=== PATIENT | female | born 1955 | race Caucasian/White ===

== ENCOUNTER → 2017-03-19 | Outpatient (CLI) | payer MEDICARE, MEDICAID ==
[~2017-03-19] MED LIST: /ESOM40CA PO; /TIOT18INH INH; A; ADVAIR INH; ALBU83IN INH; ALBUTEROL NEB; AMLO5TAB2 PO; ANTI INFLAMATORY TOP; ASPI81TA45 OR; ASTEPRO NASAL SPRAY; BENI20TA11 PO; CALCTAB22 OR; CELE1CAP4 PO; CLAR5CHW OR; COLA100C2 PO; COZA100T OR; CYCL10TA PO; DEXI60CA2 PO; DEXILANT OR; ESTRACE CREAM PV; FIBEPOW OR; FLON0.05; FLOV50AE; GLUC500T PO; HYDR25TA6 OR; IBUP600T OR; INCR1INH IN; LIDO5DIS41 TD; LIPI10TA PO; LISI-538 PO; LOSA100T8 PO; LOSA50TA5 PO; LYRI150C PO; METO25TA4 PO; NASONEX; NEUR400C PO; NIAS500T2 OR; PRAM0.123 PO; PREG50CA OR; RESTASIS OU; ROBA750T4 PO; SERT-138 PO; SIMV40TA2 OR; SOMA350T PO; TESS100C OR; TESS100C PO; TRAM50TA2 OR; TRAM50TA2 PO; VARE05TA PO; VENTAER INH; VICO5TAB PO; VOLT1GEL2 TD; ZANT300T PO; ZOCO40TA PO; [UNRECOGNIZED DRUG - CODE] OR; [UNRECOGNIZED DRUG - OTHER] NEB; butrans patch TOP; flexeril PO
== END ==
LOC: M WUC 08:53
PROVIDERS: ATTEND Nurse Practitioner Family
DX: Z53.8 Procedure and treatment not carried out for other reasons (principal)

== ENCOUNTER → 2017-03-19 | Outpatient (CLI) | payer MEDICARE, MEDICAID ==
[2017-03-19 10:18] LABS: BASO % 0.6 % (0.0-1.0); EOS # 0.1 K/mm3 (0.0-0.50); EOS % 1.4 % (0.0-3.0); LARGE UNSTAINED CELL # 0.1 K/mm3 (0.0-0.4); LARGE UNSTAINED CELL % 1.7 % (0.0-4.0); LYMPH # 2.9 K/mm3 (1.5-4.5); LYMPH % 35.7 % (24.0-44.0); MEAN CORPUSCULAR HEMOGLOBIN 26.9 pg (27.0-33.0); MEAN CORPUSCULAR HGB CONC 32.8 g/dl (32.0-36.5); MEAN CORPUSCULAR VOLUME 81.9 fl (80.0-96.0); MONO # 0.3 K/mm3 (0.0-0.8); NEUTROPHILS # 4.6 K/mm3 (1.8-7.7); NEUTROPHILS % 56.5 % (36.0-66.0); PLATELET COUNT, AUTOMATED 280 k/mm3 (150-450); RED CELL DISTRIBUTION WIDTH 15.1 % (11.5-14.5); WHITE BLOOD COUNT 8.1 K/mm3 (4.0-10.0)
[2017-03-19 11:12] LABS: ALBUMIN 4.1 GM/DL (3.2-5.2); ALBUMIN/GLOBULIN RATIO 1.24 (1.00-1.93); ALKALINE PHOSPHATASE 100 U/L (45-117); ALT/SGPT 20 U/L (12-78); ANION GAP 7 MEQ/L (8-16); AST/SGOT 14 U/L (15-37); BILIRUBIN,TOTAL 0.3 MG/DL (0.2-1.0); BLOOD UREA NITROGEN 19 MG/DL (7-18); CALCIUM LEVEL 9.6 MG/DL (8.8-10.2); CARBON DIOXIDE LEVEL 31 MEQ/L (21-32); CHLORIDE LEVEL 103 MEQ/L (98-107); CHOLESTEROL LEVEL 210 MG/DL (<200); CREATININE FOR GFR 0.73 MG/DL (0.55-1.02); GLOMERULAR FILTRATION RATE > 60.0 (>45); GLUCOSE, FASTING 105 MG/DL (80-110); POTASSIUM SERUM 4.3 MEQ/L (3.5-5.1); SODIUM LEVEL 141 MEQ/L (136-145); TOTAL PROTEIN 7.4 GM/DL (6.4-8.2); TRIGLYCERIDES LEVEL 251 MG/DL (<150)
== END ==
LOC: M LAB 09:29
PROVIDERS: ATTEND Nurse Practitioner Family
DX: K21.9 Gastro-esophageal reflux disease without esophagitis (principal); E11.9 Type 2 diabetes mellitus without complications; I10 Essential (primary) hypertension; E78.4 Other hyperlipidemia

== ENCOUNTER 2017-03-23 12:02 | Emergency (ER) | payer MEDICARE, OTHER, MEDICAID ==
[~2017-03-23] VITALS: Ht 165.1 cm; Wt 71.4 kg
[~2017-03-23 12:02] MED LIST changes: -AMLO5TAB2 PO; -CYCL10TA PO; -DEXI60CA2 PO; -INCR1INH IN; -LIDO5DIS41 TD; -LIPI10TA PO; -LISI-538 PO; -LOSA100T8 PO; -LOSA50TA5 PO; -METO25TA4 PO; -PRAM0.123 PO
[2017-03-23] MEDS ORDERED: LOSA100T8 PO (12:21)
[2017-03-23] MEDS ORDERED: LIPI10TA PO (12:21)
[2017-03-23] MEDS ORDERED: AMLO5TAB2 PO (12:21)
[2017-03-23] MEDS ORDERED: ROBA750T4 PO (12:21)
[2017-03-23] MEDS ORDERED: ASPIRIN 81 MG CHEW TABLET PO ONE (14:00)
[2017-03-23] MEDS ORDERED: NITROGLYCERIN 0.4 MG SUBL TABLET SL PRN (14:00)
[2017-03-23 14:15] LABS: BASO % 0.4 % (0.0-1.0); EOS # 0.1 K/mm3 (0.0-0.50); EOS % 1.6 % (0.0-3.0); LARGE UNSTAINED CELL # 0.1 K/mm3 (0.0-0.4); LARGE UNSTAINED CELL % 1.6 % (0.0-4.0); LYMPH # 3.1 K/mm3 (1.5-4.5); MEAN CORPUSCULAR HEMOGLOBIN 26.6 pg (27.0-33.0); MEAN CORPUSCULAR HGB CONC 33.2 g/dl (32.0-36.5); MEAN CORPUSCULAR VOLUME 79.9 fl (80.0-96.0); MONO # 0.5 K/mm3 (0.0-0.8); MONO % 5.5 % (0.0-5.0); NEUTROPHILS # 4.8 K/mm3 (1.8-7.7); PLATELET COUNT, AUTOMATED 280 k/mm3 (150-450); RED CELL DISTRIBUTION WIDTH 15.4 % (11.5-14.5); WHITE BLOOD COUNT 8.5 K/mm3 (4.0-10.0)
[2017-03-23 14:18] LABS: ALBUMIN/GLOBULIN RATIO 1.21 (1.00-1.93); ALKALINE PHOSPHATASE 110 U/L (45-117); ANION GAP 9 MEQ/L (8-16); AST/SGOT 25 U/L (15-37); BILIRUBIN,DIRECT < 0.1 MG/DL (0.0-0.2); BILIRUBIN,TOTAL 0.2 MG/DL (0.2-1.0); BLOOD UREA NITROGEN 13 MG/DL (7-18); CALCIUM LEVEL 9.4 MG/DL (8.8-10.2); CARBON DIOXIDE LEVEL 24 MEQ/L (21-32); CHLORIDE LEVEL 102 MEQ/L (98-107); CREATININE FOR GFR 0.76 MG/DL (0.55-1.02); GLOMERULAR FILTRATION RATE > 60.0 (>45); GLUCOSE, FASTING 115 MG/DL (80-110); INR 0.83; POTASSIUM SERUM 4.3 MEQ/L (3.5-5.1); SODIUM LEVEL 135 MEQ/L (136-145); TOTAL PROTEIN 7.3 GM/DL (6.4-8.2)
[2017-03-23 14:22] VITALS: BP 125/68
[2017-03-23 14:22] LABS: ALT/SGPT 25 U/L (12-78)
--- NOTE | 2017-03-23 14:34 | REP ---
Chest two views HISTORY: Chest pain Comparison: 02/11/2014 A 7 mm parenchymal nodule is present in the left upper lobe. The right lung is clear. The heart is normal in size. The pulmonary vasculature is normal in appearance. The bony structure is intact. IMPRESSION: There is a 7 mm parenchymal nodule the left upper lobe. CT of the chest may be helpful for further evaluation. Signed by Domingo Remy MD 03/23/2017 02:26 P
[2017-03-23] MEDS ORDERED: ISOVUE-370 76% 100ML VIAL (Q9967) As Ordered ONE (15:21)
--- NOTE | 2017-03-23 16:17 | REP ---
CT ANGIOGRAM CHEST: 03/23/2017. Comparison: Chest x-ray 03/23/2017, 02/11/2014. Clinical history: Chest pain, dyspnea. Technique: The patient received a bolus of 75 ml of Isovue 370 with scanning through the chest with pulmonary angiogram protocol. Coronal and sagittal reconstructions were provided. Lung griffiths show some dependent atelectatic changes mid and lower lung zones with a few peripheral blebs. There is a sternotomy with sternal wires and the sternum is not healed. The lung griffiths show no infiltrate, nodule or mass. There is no effusion or pneumothorax and no pneumomediastinum. The aorta is without aneurysm or dissection. The main, right and left pulmonary arteries in the mediastinum are without filling defects. The lobar, segmental and subsegmental vessels visualized were also grossly intact and without filling defect or vessel cutoff. There is no pathologic sized mediastinal or hilar adenopathy. No axillary or supraclavicular mass. Bone windows show degenerative changes of the thoracic spine. Some old wedging mid thoracic vertebral level, but no acute compression deformity or destructive lesion. The medial clavicles, humeral heads, glenohumeral joints, scapulae and ribs are without focal abnormality. There are plate and screw fusion components of cervical discectomy in the lower cervical spine. The upper abdomen shows the liver and spleen without mass or focal lesion. There is no hepatosplenomegaly. Adrenal glands are normal. The poles of kidneys intact. Pancreas is unremarkable and the gallbladder absent from prior cholecystectomy with clips in the fossa. Visualized small bowel loops and colon in the abdomen unremarkable. No hiatal hernia. Impression: 1. Dependent atelectatic changes throughout the posterior lower lung zones and without infiltrate, effusion, pulmonary nodule, atelectasis or parenchymal mass. No pneumothorax or pneumomediastinum. 2. There is no CT evidence of pulmonary thromboembolism. 3. Aorta without aneurysm or dissection. 4. Prior median sternotomy without healing of the sternum. 5. No other significant or acute finding. Signed by Selvin Olivier MD 03/23/2017 10:24 P
[2017-03-23] MEDS ORDERED: CYCL10TA PO (19:30)
[2017-03-23 19:43] VITALS: BP 144/68
--- NOTE | 2017-03-24 09:46 | ECGEPIP ---
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
--- NOTE | 2017-03-24 10:00 | ECGEPIP ---
Stationary ECG Study [facility] - ED Test Date: 2017-03-23 Pat Name: MALGORZATA JOSHI Department: Room: - Gender: F Warehouser: tanja : 1955 Requested By: REYNA Cruz Order Number: [id number] Reading MD: Daniele Briones Measurements Intervals [place] Rate: 68 P: -6 WI: 162 QRS: 74 QRSD: 133 T: 10 QT: 421 QTc: 450 Interpretive Statements SINUS RHYTHM RIGHT BUNDLE BRANCH BLOCK SIMILAR TO PRIOR ON SAME DATE Electronically Signed On 03-24-2017 10:00:39 EDT by Daniele Briones
--- NOTE | 2017-03-26 12:57 | ED PDOC ---
Post-Departure Follow-Up dr jackson faxed formal report of cxr Adolph Moraes MD Mar 26, 2017 12:57
[2017-05-22] MEDS ORDERED: METO25TA4 PO (10:32)
[2017-05-22] MEDS ORDERED: INCR1INH IN (10:32)
[2017-05-22] MEDS ORDERED: LOSA50TA5 PO (10:32)
[2017-05-22] MEDS ORDERED: PRAM0.123 PO (10:32)
[2017-05-22] MEDS ORDERED: DEXI60CA2 PO (10:32)
[2017-05-22] MEDS ORDERED: LISI-538 PO (10:32)
== END 2017-03-23 19:49 | disposition home or self-care (01) ==
LOC: M ED 12:02
DX: R91.1 Solitary pulmonary nodule (principal); R07.9 Chest pain, unspecified; I25.10 Atherosclerotic heart disease of native coronary artery without angina pectoris; J44.9 Chronic obstructive pulmonary disease, unspecified; Z90.79 Acquired absence of other genital organ(s); Z90.49 Acquired absence of other specified parts of digestive tract; Z87.891 Personal history of nicotine dependence; Z82.49 Family history of ischemic heart disease and other diseases of the circulatory system
CPT/HCPCS: 36415; 71020; 71275; 80048; 80076; 82550; 82553; 83690; 83880; 84484; 85025; 85610; 85730; 93005; 93041; 94760; 99285; Q9967

== ENCOUNTER → 2017-03-23 | Outpatient (CLI) | payer OTHER, MEDICAID, MEDICARE ==
--- NOTE | 2017-04-26 01:11 | ECWPNPC ---
PATIENT NAME: MALGORZATA JOSHI : 1955 GENDER: FEMALE VISIT DATE: 03/23/2017 DISCHARGE DATE: 03/23/17 1145 VISIT LOCKED DATE TIME: PHYSICIAN: ALISIA YANG RESOURCE: ALISIA YANG REASON FOR APPOINTMENT 1. WC, NECK HISTORY OF PRESENT ILLNESS HISTORY OF PRESENT ILLNESS: HERE FOR F/U WORK RELATED INJURY 1985.HX OF CERVICAL SURGERY X2.SAW SURGEON A FEW YEARS AGO WHO DID OFFER ANOTHER SURGERY.WORSE AREA OF PAIN RIGHT NECK W RADIATION INTO RIGHT ARM.RATING PAIN VAS 8/10.PT IS RIGHT HAND DOMINANT.PAIN AGGREVATED W USE OF RIGHT ARM.LAST VISIT WAS WITH US IN .SHE HAS BEEN IN [place] AND HAS HAD MULTIPLE MEDICAL ISSUES.SHE HAD EMERGENT HEART SURGERY WITH COMPLICATIONS.SHE HAS BEEN WITHOUT PAIN MEDICATION FOR SEVERAL MONTHS.SHE IS JUST GETTING REESTABLISHED IN AREA.SHE DOESNT FEEL WELL TODAY AND IS CRYING PERIODICALLY THROUGH VISIT.HAVING SEVERE ACTIVITY INTOLERANCE AND APPEARS TO BE QUITE DEBILITATED TODAY.RATING PAIN VAS 9/10. PAIN THE PATIENT DESCRIBES THE PAIN... THE PATIENT DESCRIBES THE PAIN... THE PATIENT DESCRIBES THE PAIN... FALL RISK SCREENING: SCREENING :NO FALLS IN THE PAST YEAR CURRENT MEDICATIONS TAKING ALBUTEROL SULFATE (2.5 MG/3ML) 0.083% NEBULIZATION SOLUTION VIA NEB INHALATION EVERY 4-6 HOURS NEEDED TAKING ESTRACE 0.1 MG/GM CREAM 0.5 GM VAGINAL TWICE WEEK TAKING CALCIUM 600 + D 600-400 MG-UNIT TABLET 1 TABLET ORALLY TWICE DAILY TAKING FLONASE 50 MCG/ACT SUSPENSION 1 PUFF IN EACH NOSTRIL NASALLY ONCE A DAY TAKING CLARITIN 10 MG TABLET 1 TABLET ORALLY ONCE A DAY TAKING VENTOLIN HFA 108 (90 BASE) MCG/ACT AEROSOL SOLUTION 2 PUFFS INHALATION EVERY 4 HOUR NEEDED TAKING METFORMIN HCL 500 MG TABLET 1 TABLET WITH MEALS ORALLY BID TAKING ASPIR-81 81 MG TABLET DELAYED RELEASE 1 TABLET ORALLY ONCE A DAY TAKING DEXILANT 60MG DR ESPARZA DAILY TAKING NEBULIZER - DX: 496 1 USE NEEDED TAKING NEBULIZER/TUBING/MOUTHPIECE - DX: 496 1 USE NEEDED TAKING LOSARTAN POTASSIUM-HCTZ 100-12.5 MG TABLET 1 TABLET ORALLY ONCE A DAY TAKING AMLODIPINE 5MG TABLET 1 TAB(S) ORAL DAILY TAKING FIBERCON 625 MG TABLET 1 -2 TABS NEEDED FOR CONSTIPATION ORALLY DAILY TAKING INCRUSE ELLIPTA 62.5 MCG/INH AEROSOL POWDER BREATH ACTIVATED 1 PUFF INHALATION ONCE A DAY TAKING SERTRALINE HCL 100 MG TABLET 1 TABLET ORALLY ONCE A DAY TAKING CELEBREX 200 MG CAPSULE 1 CAPSULE ORALLY ONCE A DAY TAKING ADVAIR HFA 115-21 MCG/ACT AEROSOL 2 PUFFS INHALATION TWICE A DAY TAKING LYRICA 150 MG CAPSULE 1 CAPSULE ORALLY TID MDD3 TAKING ROBAXIN-750 750 MG TABLET 1 TABLET ORALLY 3X DAY Q8H PRN TAKING VOLTAREN 1 % GEL DIRECTED TRANSDERMAL TID TAKING LIPITOR 10 MG TABLET 1 TABLET ORALLY ONCE A DAY NOT-TAKING NIASPAN 500 MG TABLET EXTENDED RELEASE 2 TABS AT BEDTIME ORALLY ONCE A DAY NOT-TAKING SIMVASTATIN 40 MG TABLET 1 TABLET EVERY EVENING ORALLY ONCE A DAY NOT-TAKING VALIUM 10 MG TABLET 1 TABLET NEEDED ORALLY 1 TAB 1HR PRE PROC MDD1 NOT-TAKING OXYCODONE HCL 5 MG TABLET 2 TAB ORALLY 2TAB 1HR PRE PROC. MDD2 NOT-TAKING BENZONATATE 100 MG CAPSULE 1 CAPSULE ORALLY THREE TIMES A DAY NOT-TAKING CHANTIX CONTINUING MONTH MONIE 1 MG TABLET 1 TABLET ORALLY TWICE A DAY NOT-TAKING COLACE 100 MG CAPSULE 1 CAPSULE NEEDED ORALLY 2 X DAILY NEEDED NOT-TAKING ULTRAM 50 MG 50 MG TABLET [address] SHORT ORALLY EVERY 6 HOURS NEEDED FOR PAIN NOT-TAKING SPIRIVA HANDIHALER 18 MCG CAPSULE 1 CAPSULE BY MOUTH INHALATION ONCE A DAY NOT-TAKING RESTASIS 0.05 % EMULSION 1 INTO AFFECTED EYE [place] [facility] OPHTHAL[facility] TWICE A DAY NOT-TAKING NEURONTIN 400 MG CAPSULE 1 CAPSULE ORALLY THREE TIMES A DAY MEDICATION LIST REVIEWED AND RECONCILED WITH THE PATIENT PAST MEDICAL HISTORY ASTHMA ESOPHAGEAL REFLUX HYPERTENSION HYPERLIPIDEMIA DEPRESSION CONSTIPATION METABOLIC SYNDROME COPD--FEV1 2.9 (2008) VITAMIN D DEFICIENCY LOW BACK PAIN CELESTE--ON CPAP PREDM ALLERGIES LISINOPRIL: COUGH: SIDE EFFECTS SURGICAL HISTORY NO PERSONAL OR FHX OF SEVERE REACTION TO ANESTHESIA CARPAL TUNNEL RELEASE 93 HYSTERECTOMY, TOTAL WITH BSO APPENDECTOMY 94 BLADDER SUSPENSION, UNSPECIFIED EGD 6-,06-23, 07/29 CERVICAL FUSION/LAMINECTOMY 01-22 CHOLECYSTECTOMY 02-21 NECK FUSION 94 R ULNA FX REPAIR 07-24 NL COLONOSCOPY 07/29 TRIPLE CARDIAC BYPASS 07/2016 BLOOD CLOT BEHIND HEART REMOVED 10/2016 HOSPITALIZATION/MAJOR DIAGNOSTIC PROCEDURE SURGERY RELATED REVIEW OF SYSTEMS REVIEWED BY: PROVIDER: ALISIA VIZCARRA . CONSTITUTIONAL: ANY CHANGE IN YOUR MEDICAL CONDITION? YES, HEART SURGERY, BLOOD CLOT REMOVED . CHILLS NO . FEVER NO . INFECTION: DO YOU HAVE NEW INFECTIONS? NO . DO YOU HAVE HISTORY OF MRSA? NO . MUSCULOSKELETAL: ANY NEW PATTERNS OF PAIN OR NUMBNESS? NO . GASTROENTEROLOGY: ANY NEW CHANGE IN BOWEL CONTROL? NO . GENITOURINARY: ANY NEW CHANGE IN BLADDER CONTROL? NO . IS THERE A CHANCE YOU COULD BE ? NO . HEMATOLOGY/LYMPH: DO YOU TAKE ANY BLOOD THINNERS? (FOR EXAMPLE- COUMADIN, PLAVIX, AGGRENOX, PLATEL, PRADAXA, OR XARELTO) NO . WHEN WAS YOUR LAST DOSE? DATE: TIME: . NEUROLOGY: HAVE YOU FALLEN IN THE PAST 6 MONTHS? YES, PT STATES SHE GETS DIZZY WHEN GETTING UP TO STAND, PT REPORTS FALLING OFTEN . ANY NEW EXTREMITY NUMBNESS OR WEAKNESS? NO . CARDIOLOGY: DO YOU HAVE A PACEMAKER OR DEFIBRILLATOR? NO . RESPIRATORY: HAVE YOU BEEN SICK IN THE PAST WEEK? NO . FEVER NO . FLU LIKE SYMPTOMS? NO . COUGH NO . INTEGUMENTARY: DO YOU HAVE ANY RASHES OR OPEN SORES? NO . ALLERGIC/IMMUNO: ARE YOU ALLERGIC TO SHELLFISH OR IV DYE? NO . ANY NEW ALLERGIES? NO . PSYCHIATRIC: DO YOU HAVE THOUGHTS OF HURTING YOURSELF OR SOMEONE ELSE? NO . ARE YOU ABUSED, NEGLECTED, OR IN AN UNSAFE ENVIRONMENT? NO . ENDOCRINOLOGY: ARE YOU DIABETIC? YES . OTHER: DO YOU NEED ANY PRESCRIPTIONS? NO . IF YES, PLEASE LIST: ____ . ANY NEW PROBLEMS WITH YOUR MEDICATIONS? NO . WHEN DID YOU LAST EAT? ____ . WHEN DID YOU LAST DRINK? ____ . WHAT DID YOU LAST DRINK? ____ . NAME OF PERSON DRIVING YOU HOME? ____ . DO YOU HAVE ANY OTHER QUESTIONS OR CONCERNS NO . VITAL SIGNS WT 157 LBS, HT 65 IN, BMI 26.12 INDEX, BP 121/73 MM HG, HR 87 /MIN, RR 16 /MIN, TEMP 93.8 F, OXYGEN SAT % 96%, NA INITIALS SC 11:09, REVIEWED BY: EM. EXAMINATION GENERAL EXAMINATION: LUNGS:LUNG SOUNDS ARE CLEAR. HEART:HEART RATE REGULAR. MUSCULOSKELETAL:*. DIAGNOSTIC: . CERVICAL SPINE/NECK: SENSATIONS:NORMAL BILATERALLY. MOTOR STRENGTH:NORMAL. MYOFASCIAL TRIGGER POINTS:RIGHT UPPER BACK. POINT TENDERNESS OVER CERVICAL SPINE. 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 [facility] REASON:CERVICAL DISC PROTRUSION/CERVICAL RADICULOPATHY PROCEDURES PN WORKMANS' COMP OPINION IN YOUR OPINION, WAS THE INCIDENT THAT THE PATIENT DESCRIBED THE COMPETENT MEDICAL CAUSE OF THIS INJURY/ILLNESS? YES ARE THE PATIENT'S COMPLAINTS CONSISTENT WITH HIS/HER HISTORY OF THE INJURY/ILLNESS? YES IS THE PATIENT'S HISTORY OF THE INJURY/ILLNESS CONSISTENT WITH YOUR OBJECTIVE FINDING? YES WHAT IS THE PERCENTAGE OF TEMPORARY IMPAIRMENT? MODERATE TO MARKED = 66.7% IS THE PATIENT WORKING? NO DOCTOR ON SITE: LAWRENCE BRAMBILA MD PROCEDURE CODES FA211 ESTABILISHED PATIENT [facility] FACILITY CHARGE DISPOSITION & COMMUNICATION FOLLOW UP 4 WEEKS ELECTRONICALLY SIGNED BY ZACKREY GREWAL ON 04/25/2017 AT 04:47 PM EDT DISCLAIMER : THIS IS A VISIT SUMMARY EXTRACTED FROM THE [employer] CHART. IT IS NOT A COPY OF THE [employer] PROGRESS NOTE. ALISSA
== END ==
LOC: M PAIN 11:00
PROVIDERS: ATTEND Nurse Practitioner Family
DX: G89.29 Other chronic pain (principal); M54.2 Cervicalgia; M96.1 Postlaminectomy syndrome, not elsewhere classified; M54.81 Occipital neuralgia; J45.909 Unspecified asthma, uncomplicated; K21.9 Gastro-esophageal reflux disease without esophagitis; I10 Essential (primary) hypertension; E78.5 Hyperlipidemia, unspecified; F32.9 Major depressive disorder, single episode, unspecified; K59.00 Constipation, unspecified; J44.9 Chronic obstructive pulmonary disease, unspecified; E55.9 Vitamin D deficiency, unspecified; G47.33 Obstructive sleep apnea (adult) (pediatric); R73.03 Prediabetes; Z98.1 Arthrodesis status; Z88.8 Allergy status to other drugs, medicaments and biological substances; Z79.84 Long term (current) use of oral hypoglycemic drugs; Z79.899 Other long term (current) drug therapy; Z86.718 Personal history of other venous thrombosis and embolism

== ENCOUNTER → 2017-05-10 | Outpatient (CLI) | payer MEDICARE, OTHER, MEDICAID ==
[~2017-05-10] MED LIST changes: +AMLO5TAB2 PO; +CYCL10TA PO; +DEXI60CA2 PO; +INCR1INH IN; +LIDO5DIS41 TD; +LIPI10TA PO; +LISI-538 PO; +LOSA100T8 PO; +LOSA50TA5 PO; +METO25TA4 PO; +PRAM0.123 PO
[2017-05-10 15:12] LABS: ANION GAP 9 MEQ/L (8-16); BLOOD UREA NITROGEN 18 MG/DL (7-18); CALCIUM LEVEL 10.1 MG/DL (8.8-10.2); CARBON DIOXIDE LEVEL 29 MEQ/L (21-32); CHLORIDE LEVEL 101 MEQ/L (98-107); CREATININE FOR GFR 0.71 MG/DL (0.55-1.02); GLOMERULAR FILTRATION RATE > 60.0 (>45); GLUCOSE, FASTING 93 MG/DL (80-110); POTASSIUM SERUM 4.5 MEQ/L (3.5-5.1); SODIUM LEVEL 139 MEQ/L (136-145)
[2017-05-10 16:36] LABS: BASO % 0.4 % (0.0-1.0); EOS # 0.1 K/mm3 (0.0-0.50); LARGE UNSTAINED CELL # 0.1 K/mm3 (0.0-0.4); LARGE UNSTAINED CELL % 1.4 % (0.0-4.0); LYMPH # 3.5 K/mm3 (1.5-4.5); MEAN CORPUSCULAR HEMOGLOBIN 28.3 pg (27.0-33.0); MEAN CORPUSCULAR HGB CONC 34.1 g/dl (32.0-36.5); MEAN CORPUSCULAR VOLUME 83.1 fl (80.0-96.0); MONO # 0.4 K/mm3 (0.0-0.8); NEUTROPHILS # 5.6 K/mm3 (1.8-7.7); NEUTROPHILS % 57.3 % (36.0-66.0); PLATELET COUNT, AUTOMATED 356 k/mm3 (150-450); RED CELL DISTRIBUTION WIDTH 14.1 % (11.5-14.5); WHITE BLOOD COUNT 9.7 K/mm3 (4.0-10.0)
== END ==
LOC: M WUC 10:33
PROVIDERS: ATTEND Internal Medicine Cardiovascular Disease
DX: I25.10 Atherosclerotic heart disease of native coronary artery without angina pectoris (principal); R06.02 Shortness of breath; Z95.5 Presence of coronary angioplasty implant and graft

== ENCOUNTER → 2017-05-15 | Outpatient (CLI) | payer OTHER, MEDICAID, MEDICARE ==
--- NOTE | 2017-06-08 00:53 | ECWPNPC ---
PATIENT NAME: MALGORZATA JOSHI : 1955 GENDER: FEMALE VISIT DATE: 05/15/2017 DISCHARGE DATE: 05/15/17 1452 VISIT LOCKED DATE TIME: PHYSICIAN: ALISIA YANG RESOURCE: ALISIA YANG REASON FOR APPOINTMENT 1. BACK HISTORY OF PRESENT ILLNESS HISTORY OF PRESENT ILLNESS: HERE FOR F/U WORK RELATED INJURY 1985.HX OF CERVICAL SURGERY X2.SAW SURGEON A FEW YEARS AGO WHO DID OFFER ANOTHER SURGERY.WORSE AREA OF PAIN RIGHT NECK W RADIATION INTO RIGHT ARM.RATING PAIN VAS 9/10.PT IS RIGHT HAND DOMINANT.PAIN AGGREVATED W USE OF RIGHT ARM.LAST VISIT WAS WITH US IN .SHE HAS BEEN IN [place] AND HAS HAD MULTIPLE MEDICAL ISSUES.SHE HAD EMERGENT HEART SURGERY WITH COMPLICATIONS.SHE HAS BEEN WITHOUT PAIN MEDICATION FOR SEVERAL MONTHS.SHE IS JUST GETTING REESTABLISHED IN AREA.SHE IS HAVING HERNIA SURGERY ON .SHE IS HAVING A CARDIAC CATH. IN [place] ORDERD BY DR. BLACKMAN.SHE IS HAVING DIZZY SPELLS AND SHORTNESS OF BREATH.RATING PAIN VAS 9/10.LEAVING FOR [place] IN JUNE. PAIN THE PATIENT DESCRIBES THE PAIN... THE PATIENT DESCRIBES THE PAIN... THE PATIENT DESCRIBES THE PAIN... THE PATIENT DESCRIBES THE PAIN... FALL RISK SCREENING: SCREENING :NO FALLS IN THE PAST YEAR CURRENT MEDICATIONS TAKING ALBUTEROL SULFATE (2.5 MG/3ML) 0.083% NEBULIZATION SOLUTION VIA NEB INHALATION EVERY 4-6 HOURS NEEDED TAKING ESTRACE 0.1 MG/GM CREAM 0.5 GM VAGINAL TWICE WEEK TAKING CALCIUM 600 + D 600-400 MG-UNIT TABLET 1 TABLET ORALLY TWICE DAILY TAKING FLONASE 50 MCG/ACT SUSPENSION 1 PUFF IN EACH NOSTRIL NASALLY ONCE A DAY TAKING CLARITIN 10 MG TABLET 1 TABLET ORALLY ONCE A DAY TAKING VENTOLIN HFA 108 (90 BASE) MCG/ACT AEROSOL SOLUTION 2 PUFFS INHALATION EVERY 4 HOUR NEEDED TAKING METFORMIN HCL 500 MG TABLET 1 TABLET WITH MEALS ORALLY BID TAKING ASPIR-81 81 MG TABLET DELAYED RELEASE 1 TABLET ORALLY ONCE A DAY TAKING DEXILANT 60MG DR ESPARZA DAILY TAKING NEBULIZER - DX: 496 1 USE NEEDED TAKING NEBULIZER/TUBING/MOUTHPIECE - DX: 496 1 USE NEEDED TAKING LOSARTAN POTASSIUM-HCTZ 100-12.5 MG TABLET 1 TABLET ORALLY ONCE A DAY TAKING AMLODIPINE 5MG TABLET 1 TAB(S) ORAL DAILY TAKING FIBERCON 625 MG TABLET 1 -2 TABS NEEDED FOR CONSTIPATION ORALLY DAILY TAKING INCRUSE ELLIPTA 62.5 MCG/INH AEROSOL POWDER BREATH ACTIVATED 1 PUFF INHALATION ONCE A DAY TAKING SERTRALINE HCL 100 MG TABLET 1 TABLET ORALLY ONCE A DAY TAKING ADVAIR HFA 115-21 MCG/ACT AEROSOL 2 PUFFS INHALATION TWICE A DAY TAKING LIPITOR 10 MG TABLET 1 TABLET ORALLY ONCE A DAY NOT-TAKING CELEBREX 200 MG CAPSULE 1 CAPSULE ORALLY ONCE A DAY NOT-TAKING LYRICA 150 MG CAPSULE 1 CAPSULE ORALLY TID MDD3 NOT-TAKING ROBAXIN-750 750 MG TABLET 1 TABLET ORALLY 3X DAY Q8H PRN NOT-TAKING VOLTAREN 1 % GEL DIRECTED TRANSDERMAL TID NOT-TAKING NIASPAN 500 MG TABLET EXTENDED RELEASE 2 TABS AT BEDTIME ORALLY ONCE A DAY NOT-TAKING SIMVASTATIN 40 MG TABLET 1 TABLET EVERY EVENING ORALLY ONCE A DAY NOT-TAKING VALIUM 10 MG TABLET 1 TABLET NEEDED ORALLY 1 TAB 1HR PRE PROC MDD1 NOT-TAKING OXYCODONE HCL 5 MG TABLET 2 TAB ORALLY 2TAB 1HR PRE PROC. MDD2 NOT-TAKING BENZONATATE 100 MG CAPSULE 1 CAPSULE ORALLY THREE TIMES A DAY NOT-TAKING CHANTIX CONTINUING MONTH MONIE 1 MG TABLET 1 TABLET ORALLY TWICE A DAY NOT-TAKING COLACE 100 MG CAPSULE 1 CAPSULE NEEDED ORALLY 2 X DAILY NEEDED NOT-TAKING ULTRAM 50 MG 50 MG TABLET [address] SHORT ORALLY EVERY 6 HOURS NEEDED FOR PAIN NOT-TAKING SPIRIVA HANDIHALER 18 MCG CAPSULE 1 CAPSULE BY MOUTH INHALATION ONCE A DAY NOT-TAKING RESTASIS 0.05 % EMULSION 1 INTO AFFECTED EYE [place] [facility] OPHTHAL[facility] TWICE A DAY NOT-TAKING NEURONTIN 400 MG CAPSULE 1 CAPSULE ORALLY THREE TIMES A DAY MEDICATION LIST REVIEWED AND RECONCILED WITH THE PATIENT PAST MEDICAL HISTORY ASTHMA ESOPHAGEAL REFLUX HYPERTENSION HYPERLIPIDEMIA DEPRESSION CONSTIPATION METABOLIC SYNDROME COPD--FEV1 2.9 (2008) VITAMIN D DEFICIENCY LOW BACK PAIN CELESTE--ON CPAP PREDM ALLERGIES LISINOPRIL: COUGH: SIDE EFFECTS REVIEW OF SYSTEMS REVIEWED BY: PROVIDER: ALISIA VIZCARRA . CONSTITUTIONAL: ANY CHANGE IN YOUR MEDICAL CONDITION? GOING TO CARDIAC MD SUNDAY POSSIBLE CLOG IN [place] SURGERY JUN 05 . CHILLS NO . FEVER NO . INFECTION: DO YOU HAVE NEW INFECTIONS? NO . DO YOU HAVE HISTORY OF MRSA? NO . MUSCULOSKELETAL: ANY NEW PATTERNS OF PAIN OR NUMBNESS? NO . GASTROENTEROLOGY: ANY NEW CHANGE IN BOWEL CONTROL? NO . GENITOURINARY: ANY NEW CHANGE IN BLADDER CONTROL? NO . IS THERE A CHANCE YOU COULD BE ? NO . HEMATOLOGY/LYMPH: DO YOU TAKE ANY BLOOD THINNERS? (FOR EXAMPLE- COUMADIN, PLAVIX, AGGRENOX, PLATEL, PRADAXA, OR XARELTO) NO . WHEN WAS YOUR LAST DOSE? DATE: TIME: . NEUROLOGY: HAVE YOU FALLEN IN THE PAST 6 MONTHS? YES, 4 MONTHS AGO . ANY NEW EXTREMITY NUMBNESS OR WEAKNESS? NO . CARDIOLOGY: DO YOU HAVE A PACEMAKER OR DEFIBRILLATOR? NO . RESPIRATORY: HAVE YOU BEEN SICK IN THE PAST WEEK? NO . FEVER NO . FLU LIKE SYMPTOMS? NO . COUGH NO . INTEGUMENTARY: DO YOU HAVE ANY RASHES OR OPEN SORES? NO . ALLERGIC/IMMUNO: ARE YOU ALLERGIC TO SHELLFISH OR IV DYE? NO . ANY NEW ALLERGIES? NO . PSYCHIATRIC: DO YOU HAVE THOUGHTS OF HURTING YOURSELF OR SOMEONE ELSE? NO . ARE YOU ABUSED, NEGLECTED, OR IN AN UNSAFE ENVIRONMENT? NO . ENDOCRINOLOGY: ARE YOU DIABETIC? YES . OTHER: DO YOU NEED ANY PRESCRIPTIONS? NO . IF YES, PLEASE LIST: ____ . ANY NEW PROBLEMS WITH YOUR MEDICATIONS? NO . WHEN DID YOU LAST EAT? ____ . WHEN DID YOU LAST DRINK? ____ . WHAT DID YOU LAST DRINK? ____ . NAME OF PERSON DRIVING YOU HOME? ____ . DO YOU HAVE ANY OTHER QUESTIONS OR CONCERNS HAS NOT CONNECTED WITH ORTHO YET (FROM LAST NOTE) . VITAL SIGNS WT 144 LBS, HT 65 IN, BMI 23.96 INDEX, BP 114/69 MM HG, HR 78 /MIN, RR 16 /MIN, TEMP 96.5 F, OXYGEN SAT % 99%, NA INITIALS AW 1422. EXAMINATION GENERAL EXAMINATION: LUNGS:LUNG SOUNDS ARE CLEAR. HEART:HEART RATE REGULAR. MUSCULOSKELETAL:*. DIAGNOSTIC: . CERVICAL SPINE/NECK: SENSATIONS:NORMAL BILATERALLY. MOTOR STRENGTH:NORMAL. MYOFASCIAL TRIGGER POINTS:RIGHT UPPER BACK. POINT TENDERNESS OVER CERVICAL SPINE. 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 PROCEDURES PN WORKMANS' COMP OPINION IN YOUR OPINION, WAS THE INCIDENT THAT THE PATIENT DESCRIBED THE COMPETENT MEDICAL CAUSE OF THIS INJURY/ILLNESS? YES ARE THE PATIENT'S COMPLAINTS CONSISTENT WITH HIS/HER HISTORY OF THE INJURY/ILLNESS? YES IS THE PATIENT'S HISTORY OF THE INJURY/ILLNESS CONSISTENT WITH YOUR OBJECTIVE FINDING? YES WHAT IS THE PERCENTAGE OF TEMPORARY IMPAIRMENT? MODERATE TO MARKED = 66.7% IS THE PATIENT WORKING? NO DOCTOR ON SITE: LAWRENCE BRAMBILA MD PROCEDURE CODES FA211 ESTABILISHED PATIENT [facility] CHARGE DISPOSITION & COMMUNICATION FOLLOW UP PT WILL CALL ELECTRONICALLY SIGNED BY ZACKERY GREWAL ON 06/07/2017 AT 09:56 PM EDT DISCLAIMER : THIS IS A VISIT SUMMARY EXTRACTED FROM THE [employer] CHART. IT IS NOT A COPY OF THE [employer] PROGRESS NOTE. ALISSA
== END | disposition home or self-care (01) ==
LOC: M PAIN 14:15
PROVIDERS: ATTEND Nurse Practitioner Family
DX: G89.29 Other chronic pain (principal); M54.2 Cervicalgia; M96.1 Postlaminectomy syndrome, not elsewhere classified; M54.81 Occipital neuralgia; J44.9 Chronic obstructive pulmonary disease, unspecified; K21.9 Gastro-esophageal reflux disease without esophagitis; I10 Essential (primary) hypertension; E78.5 Hyperlipidemia, unspecified; F33.9 Major depressive disorder, recurrent, unspecified; K59.00 Constipation, unspecified; E88.81 Metabolic syndrome and other insulin resistance; E55.9 Vitamin D deficiency, unspecified; G47.33 Obstructive sleep apnea (adult) (pediatric); E11.9 Type 2 diabetes mellitus without complications; Z79.899 Other long term (current) drug therapy; Z79.84 Long term (current) use of oral hypoglycemic drugs; Z79.51 Long term (current) use of inhaled steroids; Z88.8 Allergy status to other drugs, medicaments and biological substances

== ENCOUNTER → 2017-05-29 | Outpatient (CLI) | payer MEDICARE, MEDICAID ==
[2017-05-29 12:49] LABS: MEAN CORPUSCULAR HEMOGLOBIN 28.1 pg (27.0-33.0); MEAN CORPUSCULAR HGB CONC 33.8 g/dl (32.0-36.5); MEAN CORPUSCULAR VOLUME 83.1 fl (80.0-96.0); RED CELL DISTRIBUTION WIDTH 14.4 % (11.5-14.5); WHITE BLOOD COUNT 8.1 10^3/uL (4.0-10.0)
[2017-05-29 13:06] LABS: ALBUMIN 4.1 GM/DL (3.2-5.2); ALBUMIN/GLOBULIN RATIO 1.32 (1.00-1.93); ALKALINE PHOSPHATASE 96 U/L (45-117); ALT/SGPT 26 U/L (12-78); ANION GAP 11 MEQ/L (8-16); AST/SGOT 20 U/L (15-37); BILIRUBIN,TOTAL 0.4 MG/DL (0.2-1.0); BLOOD UREA NITROGEN 16 MG/DL (7-18); CALCIUM LEVEL 10.1 MG/DL (8.8-10.2); CARBON DIOXIDE LEVEL 25 MEQ/L (21-32); CHLORIDE LEVEL 101 MEQ/L (98-107); CREATININE FOR GFR 0.71 MG/DL (0.55-1.02); GLOMERULAR FILTRATION RATE > 60.0 (>45); GLUCOSE, FASTING 141 MG/DL (80-110); POTASSIUM SERUM 4.3 MEQ/L (3.5-5.1); SODIUM LEVEL 137 MEQ/L (136-145); TOTAL PROTEIN 7.2 GM/DL (6.4-8.2)
== END ==
LOC: M WUC 09:28
PROVIDERS: ATTEND Nurse Practitioner Family
DX: E11.9 Type 2 diabetes mellitus without complications (principal)

== ENCOUNTER 2017-06-05 06:01 | Inpatient (IN) | payer MEDICARE ==
[2017-06-05] VITALS (8 sets, daily range): BP systolic 110–170; BP diastolic 56–76
[~2017-06-05] VITALS: Ht 165.1 cm; Wt 67.6 kg
[~2017-06-05 06:01] MED LIST changes: -LIDO5DIS41 TD
[2017-06-05] MEDS ORDERED: LR 1,000 ML IV ONE (06:15)
[2017-06-05] MEDS ORDERED: BUPIVACAINE HCL 0.25% 30 ML VIAL As Ordered ONE (07:19)
[2017-06-05] MEDS ORDERED: LIDOCAINE 2% INJ 100 MG/5 ML SDV (FOR ANES.) As Ordered ONE (07:58)
[2017-06-05] MEDS ORDERED: PROPOFOL 200 MG/20 ML VIAL As Ordered ONE (07:58)
[2017-06-05] MEDS ORDERED: ROCURONIUM BROMIDE 50 MG/5 ML VIAL/SYRINGE As Ordered ONE (07:58)
[2017-06-05] MEDS ORDERED: PROPOFOL 500 MG/50 ML VIAL As Ordered ONE ×2 (07:58→08:45)
[2017-06-05] MEDS ORDERED: REMIFENTANIL 1MG 3ML VIAL As Ordered ONE (07:58)
[2017-06-05] MEDS ORDERED: MIDAZOLAM INJ 2 MG/2 ML VIAL (J2250) As Ordered ONE (07:58)
[2017-06-05] MEDS ORDERED: fentaNYL 250 MCG/5 ML INJECTION (J3010) As Ordered ONE (07:58)
[2017-06-05] MEDS ORDERED: PHENYLEPHRINE INJ 10MG/ML VIAL (J2370) As Ordered ONE (07:58)
[2017-06-05] MEDS ORDERED: ASPIRIN 81 MG ENTERIC TAB PO SCH (09:00)
[2017-06-05] MEDS: FLUTICASONE PROP 0.05% NASAL SPRAY 16 GM (FLONASE) SCH (09:00)
[2017-06-05] MEDS: **NOTE PATIENT COMMENT** MISC XX SCH (09:00)
[2017-06-05] MEDS ORDERED: BUPIVACAINE LIPOSOME/PF 1.3% 20 ML VIAL (13.3MG/ML)(EXPAREL) As Ordered ONE (09:02)
[2017-06-05] MEDS ORDERED: NEOSTIGMINE 10 MG/10 ML VIAL (J2710) As Ordered ONE (09:06)
[2017-06-05] MEDS ORDERED: GLYCOPYRROLATE INJ 0.2 MG/ML 2 ML VIAL As Ordered ONE (09:06)
[2017-06-05] MEDS ORDERED: KETOROLAC 60 MG/2 ML VIAL (J1885) As Ordered ONE (09:06)
[2017-06-05] MEDS ORDERED: ONDANSETRON 4MG/2ML VIAL (J2405) As Ordered ONE (09:06)
[2017-06-05] MEDS ORDERED: NORCO, ANEXSIA 5/325MG TABLET (HYDROcodone/ACETAMINOPHEN) As Ordered ONE (10:07)
[2017-06-05] MEDS: NORCO, ANEXSIA 5/325MG TABLET (HYDROcodone/ACETAMINOPHEN) PO PRN ×2 (10:11→19:40)
[2017-06-05] MEDS ORDERED: ONDANSETRON 4MG/2ML VIAL (J2405) IV PRN (10:15)
[2017-06-05] MEDS ORDERED: fentaNYL 100 MCG/2 ML INJECTION (J3010) IV PRN (10:15)
[2017-06-05] MEDS ORDERED: NORCO, ANEXSIA 5/325MG TABLET (HYDROcodone/ACETAMINOPHEN) PO PRN (10:15)
[2017-06-05] MEDS ORDERED: LR 1,000 ML IV SCH (10:15)
[2017-06-05] MEDS ORDERED: NITROGLYCERIN 0.4 MG SUBL TABLET As Ordered ONE (11:16)
[2017-06-05] MEDS ORDERED: NITROGLYCERIN 0.4 MG SUBL TABLET SL ONE (11:45)
[2017-06-05] MEDS ORDERED: MORPHINE 2 MG/ML 1ML SYRINGE As Ordered ONE (13:09)
[2017-06-05] MEDS ORDERED: MORPHINE 2 MG/ML 1ML SYRINGE IV ONE (13:15)
[2017-06-05 13:20] LABS: MEAN CORPUSCULAR HEMOGLOBIN 27.9 pg (27.0-33.0); MEAN CORPUSCULAR HGB CONC 33.2 g/dl (32.0-36.5); MEAN CORPUSCULAR VOLUME 83.8 fl (80.0-96.0); WHITE BLOOD COUNT 9.8 10^3/uL (4.0-10.0)
--- NOTE | 2017-06-05 13:24 | CR.PDOC ---
[facility] Consultation Consultation DATE OF CONSULTATION: Jun 05, 2017 at 13:01 PRIMARY CARE PHYSICIAN: Dr. Chawla REFERRING PROVIDER: Dr. Jones ATTENDING PHYSICIAN: Dr. Jones REASON FOR CONSULTATION/CHIEF COMPLAINT: CP HISTORY OF PRESENT ILLNESS: This is a 61-year-old female past medical history of CAD status post CABG 3 in July 2016, COPD, hypertension, CELESTE on CPAP, diabetes, depression and presents for an incisional epigastric hernia repair. Post surgery, the patient had complained of 8 out of 10 pressure-like chest pain was midsternal, nonradiating. Nonpleuritic, non-positional, nonreproducible. Patient received nitroglycerin with significant relief of her pain. She states she takes aspirin daily with her last dose being yesterday. Patient currently denies any chest pain/shortness of breath/palpitations. Sitting comfortably in bed. Patient does note that she has exertional chest pain and shortness of breath at baseline. Had a recent cardiac catheterization 2 weeks ago which she notes did not have any new obstructive lesions. We will obtain records from [facility]. ALLERGIES: Please see below. HOME MEDICATIONS: Please see below. PAST MEDICAL HISTORY:As per HPI PAST SURGICAL HISTORY: Cholecystectomy, appendicectomy, bladder surgery, cervical fusion 2, right arm and left arm surgery, left elbow surgery, hysterectomy, CABG FAMILY HISTORY: Father with diabetes, mother with COPD and diabetes SOCIAL HISTORY: His history of tobacco abuse however quit in July, history of marijuana and cocaine use more than 8 years ago per medical records. REVIEW OF SYSTEMS: HEENT: Denies sore throat/headache CARDIOVASCULAR: + chest pain. No palpitations RESPIRATORY: Denies shortness of breath/cough GASTROINTESTINAL: denies nausea/vomiting GENITOURINARY: Denies dysuria/urinary urgency. MUSCULOSKELETAL: Denies myalgias/arthralgias NEUROLOGICAL: Denies any focal weakness PHYSICAL EXAMINATION: VITAL SIGNS: Please see below. General: No acute distress, laying comfortably in bed. HEENT: Moist mucous membranes. Neck: No JVD or lymphadenopathy Cardiac: RRR, No murmurs. Surgical scar from prior cath. Pulm: Coarse crackles at the bases right greater than left.No wheezing, rhonchi Abd: Minimal tenderness at the incisional regions. Bandages intact. No bleeding or areas of erythema noted. ND + BS Ext: No edema or cyanosis LABORATORY DATA: Please see below. ASSESSMENT/PLAN: 1. Atypical chest pain- the patient with history of CAD status post CABG in July 2016, with recent cath 2 weeks ago per patient's with no new obstructive lesions. Patient does states that she does have exertional chest pain and shortness of breath at baseline. Her cardiac enzymes are negative times one, will repeat. Her EKG with normal sinus rhythm and right bundle branch block unchanged from her prior EKG. Responded to nitroglycerin. Now chest pain free. Patient states she takes aspirin daily, last dose yesterday. Would observe patient on telemetry. Continue beta kayla, aspirin, statin. To be seen by Dr. Lundy. 2. Postoperative day 0 status post incisional epigastric hernia. Management per Dr. Jones. 3. Hypertension- Hold BP meds for now given post-op. Revaluate by tomorrow if needs ACEi restarted. 4. Hyperlipidemia- continue statin 5. Diabetes mellitus- hold metformin. Sliding scale insulin. 6. History of COPD- stable. Continue inhaler/. 7. Depression- Continue home meds 8. CELESTE on CPAP DVT prophylaxis- SCDs Patient will follow-up with Dr. Digna Velez starting 06/06/17 at 7 AM. Vital Signs/I&O Vital Signs Date Time Temp Pulse Resp B/P (MAP) Pulse Ox O2 Delivery O2 Flow Rate FiO2 06/05/17 11:50 61 16 122/71 (88) 96 Nasal Cannula 2 06/05/17 11:35 97.3 I&O- Last 24 Hours up to 6 AM 06/06/17 06:00 Intake Total 1300 ml Output Total 10 ml Balance 1290 ml Laboratory Data Labs 24H Laboratory Tests 2 06/05/17 07:18: Bedside Glucose (Misc Panel) 139H 06/05/17 11:33: Total Creatine Kinase 96, Creatine Kinase MB 1.9, Creatine Kinase MB Relative Index 1.97, Troponin I < 0.02 Allergies Coded Allergies: No Known Allergies (Verified , 06/05/17) Home Medications Scheduled (Incruse Ellipta) 62.5 Mcg/Inh Inh, 1 PUFF IN DAILY, (Reported) (Dexilant) 60 Mg Cap, 60 MG PO DAILY, (Reported) (Losartan Potassium/Hydroc 50-12.5 mg) 1 Tab Tab, 1 TAB PO DAILY, (Reported) Albuterol Sulfate (Ventolin Hfa) Aer, 2 PUFFS INH QIDP, (Reported) Aspirin (Aspirin Ec Lo-Dose) 81 Mg Tab, 81 MG OR QHS, (Reported) Atorvastatin Calcium (Lipitor) 10 Mg Tab, 10 MG PO DAILY, (Reported) Fluticasone Propionate (Flonase) 0.05 % Spr, 1 SPRAY NA DAILY, (Reported) Lisinopril (Lisinopril) 20 Mg Tab, 20 MG PO DAILY, (Reported) Loratadine (Claritin) 5 Mg Chw, 10 MG OR DAILY, (Reported) Metformin Hydrochloride (Glucophage) 500 Mg Tab, 500 MG PO BID, (Reported) Metoprolol Tartrate (Metoprolol Tartrate) 25 Mg Tab, 25 MG PO BID, (Reported) Pramipexole Dihydrochloride (Pramipexole Dihydrochlori) 0.125 Mg Tab, 0.125 MG PO QHS, (Reported) Salmeterol/Fluticasone (Advair) Mis, 2 PUFFS INH BIDP, (Reported) Sertraline Hcl (Sertraline Hcl) 100 Mg Tab, 100 MG PO QAM, (Reported) [Estrace Cream] , 1 DOSE PV QWEEK, (Reported) DALLIN MEAD MD Jun 05, 2017 13:24
[2017-06-05 13:48] LABS: ALBUMIN 3.7 GM/DL (3.2-5.2); ALBUMIN/GLOBULIN RATIO 1.37 (1.00-1.93); ALKALINE PHOSPHATASE 108 U/L (45-117); ALT/SGPT 70 U/L (12-78); ANION GAP 6 MEQ/L (8-16); AST/SGOT 91 U/L (15-37); BILIRUBIN,TOTAL 0.4 MG/DL (0.2-1.0); BLOOD UREA NITROGEN 14 MG/DL (7-18); CALCIUM LEVEL 8.9 MG/DL (8.8-10.2); CARBON DIOXIDE LEVEL 29 MEQ/L (21-32); CHLORIDE LEVEL 102 MEQ/L (98-107); CREATININE FOR GFR 0.74 MG/DL (0.55-1.02); GLOMERULAR FILTRATION RATE > 60.0 (>45); GLUCOSE, FASTING 102 MG/DL (80-110); MAGNESIUM LEVEL 1.7 MG/DL (1.8-2.4); POTASSIUM SERUM 3.6 MEQ/L (3.5-5.1); SODIUM LEVEL 137 MEQ/L (136-145); TOTAL PROTEIN 6.4 GM/DL (6.4-8.2)
[2017-06-05] MEDS ORDERED: SOMA350T PO (14:15)
[2017-06-05] MEDS ORDERED: LIDO5DIS41 TD (14:15)
[2017-06-05] MEDS ORDERED: DEXTROSE 50% 50 ML SYRINGE IV PRN (14:45)
[2017-06-05] MEDS ORDERED: GLUCOSE 4 GM CHEW TABLET PO PRN (14:45)
[2017-06-05] MEDS ORDERED: GLUCAGON FOR INJ 1 MG VIAL (J1610) SC PRN (14:45)
--- NOTE | 2017-06-05 15:08 | REP ---
Chest one-view HISTORY: Chest pain Comparison: 03/23/2017 The lungs are clear. The heart is normal in size. The pulmonary vasculature is normal in appearance. Impression: No acute disease. Signed by Domingo Remy MD 06/05/2017 02:59 P
[2017-06-05] MEDS: ATORVASTATIN 10 MG TAB PO SCH (15:21)
[2017-06-05] MEDS: ASPIRIN 81 MG ENTERIC TAB PO SCH (15:21)
[2017-06-05] MEDS: CARISOPRODOL 350 MG TAB PO SCH ×2 (15:24→20:54)
[2017-06-05] MEDS: SERTRALINE 100 MG TAB PO SCH (15:24)
[2017-06-05] MEDS: HumaLOG INSULIN (NovoLOG) PER UNIT SC SCH (17:19)
--- NOTE | 2017-06-05 17:41 | RO ---
DATE OF PROCEDURE: 06/05/2017 PREOPERATIVE DIAGNOSIS: Epigastric incisional hernia. POSTOPERATIVE DIAGNOSIS: Epigastric incisional hernia. PROCEDURE PERFORMED: Laparoscopic repair of epigastric incisional hernia with 12 cm Parietex patch. Patch number is [id number] and the lot number is [id number]. SURGEON: Dr. Tr Jones ANESTHESIA: General. INDICATIONS FOR PROCEDURE: The patient is a 61-year-old woman who developed an epigastric incisional hernia at the inferior end of her median sternotomy scar from a coronary artery bypass grafting. She is now for a laparoscopic repair of her epigastric incisional hernia. DESCRIPTION OF PROCEDURE: The patient was placed under general endotracheal anesthesia. The patient's abdomen was prepped and draped in a sterile fashion. Initial entry was gained in the right upper quadrant. 0.25% Marcaine was infiltrated and a small incision was made. A Veress needle was inserted and after a positive hanging drop test, the abdomen was insufflated with carbon dioxide gas. A 5 mm port was then placed over the 5 mm scope which was advanced through the abdominal wall without difficulty. The laparoscope was inserted. Initial examination showed that there were no significant adhesions evident within the abdomen. The liver appeared normal. Visualized portions of the small and large bowel appeared normal. There was no evidence of Veress needle injury. The location of the hernia was identified in the epigastrium just inferior to the tip of the xyphoid. This area was marked on the skin with a skin marker. This clearly lay anterior to the falciform ligament. A second 5 mm port was placed higher in the right upper quadrant and a third port was placed slightly across the midline in the left lower quadrant. Using the Harmonic scalpel, the falciform ligament was excised off the anterior abdominal wall with fibrofatty tissue along the anterior midline. This dissection was carried up across and above the area of the fascial defect. This piece of tissue was subsequently transected for removal. The fascial defect was identified and was in fact approximately 7 cm in maximum diameter. There was a bilobed hernia sac with the inferior aspect somewhat more pronounced than the superior which was shallower. I elected to make a small incision through her old scar in the epigastrium to excise the hernia sac and place the mesh. Therefore, an approximately 4-5 cm skin incision was made. This was deepened to the hernia sac, which was then dissected free from the overlying subcutaneous tissues and excised at the level of the fascia. The portions of the falciform ligament were removed through this opening. A 12 cm Parietex patch was marked at the center. A suture of #0 Ethibond was placed to approximate the midpoint of the fascial defect and also incorporate a very small bite of the center point of the patch. Care was taken to place the patch with the nonadherent side toward the bowel. I did not attempt to close the fascial defect securely. Effectively the Ethibond sutures approximated the inferior half of the defect. Additional #0 Ethibonds were placed to complete the closure of this portion of the defect. The abdomen was then reinflated. A SecureStrap tacking device was used to apply the mesh to the anterior abdominal wall. The abdominal pressure was reduced to 8 mmHg prior to this step. A second SecureStrap device was also utilized. This appeared to give a very nice application of the mesh securely to the anterior abdominal wall without any significant wrinkling of the patch. 30 mL of a mixture of 20 mL of Exparel with 10 mL of sterile saline were then infiltrated. The majority of this was infiltrated in the area overlying the mesh. Several small amounts were infiltrated around the trocar sites. Inspection showed no evidence of any bleeding. The abdomen was then deflated, and the remaining trocars were removed. The subcutaneous tissues in the epigastric incision were approximated with #3-0 Vicryl. The skin incisions were then closed with buried #4-0 and #5-0 Vicryl. Steri-Strips were applied followed by light dressings. The patient tolerated the procedure well without apparent complication. She was awakened in the operating room, extubated and moved to the recovery room in stable condition. ALISSA
--- NOTE | 2017-06-05 17:58 | HPE ---
DATE OF ADMISSION: 06/05/2017 REASON FOR ADMISSION: Postoperative chest pain with history of prior coronary artery bypass grafting. HISTORY OF PRESENT ILLNESS: The patient is a pleasant 61-year-old woman who had undergone an urgent coronary artery bypass grafting in July of 2016. She developed a hernia in the epigastrium at the inferior end of her median sternotomy incision as it extended into the epigastrium. She was scheduled for surgery for same. Preoperatively she was seen by her primary physician and also by her health actuary, Dr. Lundy who had the patient undergo a coronary arteriogram preoperatively. This revealed that her bypasses were patent without significant stenoses. There was no other previously unidentified [place] vessel disease. She was felt to be at low risk for any problems from the surgery. She was admitted to the OR on the for an outpatient laparoscopic ventral incisional hernia repair. The surgery went to well. She was found to have a 4 cm fascial defect in the epigastrium right near the tip of the xyphoid. There was not adequate soft tissue to close this completely and a 12 cm Parietex patch was placed laparoscopically to cover the defect. Exparel was infiltrated in the area of the surgery. She was doing well in the recovery room and was preparing to move to the advanced recovery in anticipation of going home when she complained of some chest pressure and discomfort. She apparently did not have any EKG changes. Dr. Fischer, the anesthesiologist had an EKG performed which showed he felt no significant EKG change. She was administered a nitroglycerin and apparently had improvement though not immediate relief of her discomfort. Because of this episode, she is now brought into the hospital for monitoring of her cardiac injury profile to assess the possibility of any sort of ongoing cardiac process or myocardial infarction. ALLERGIES: The patient has no reported drug allergies. MEDICATIONS: Include: - albuterol inhaler 2 puffs four times a day as needed - aspirin 81 mg by mouth daily at bedtime - Lipitor 10 mg by mouth daily - Carisoprodol 350 mg by mouth three times daily - Dexilant 60 mg by mouth daily - Estrace cream one dose vaginally every Sunday - Flonase 1 spray daily - Incruse Ellipta 1 puff inhaled daily - Lidoderm one patch transdermally to the back 12 hours on and 12 hours off - lisinopril 20 mg by mouth daily - loratadine 10 mg by mouth daily - losartan hydrochlorothiazide 50/12.5 mg once daily - Glucophage 500 mg by mouth twice daily - metoprolol tartrate 25 mg by mouth twice daily - pramipexole dihydrochloride 0.125 mg by mouth daily at bedtime - sertraline 100 mg by mouth every morning - Advair 2 puffs twice daily as needed MEDICAL HISTORY: Significant for: Type 2 diabetes mellitus. She has a history of coronary artery disease with a myocardial infarction in July 2016 which was treated urgently with coronary artery bypass grafting. Her most recent repeat arteriogram is as noted in the history of the present illness. She has a history of hypertension. She has a history of asthma and chronic obstructive pulmonary disease (COPD). She does have sleep apnea and uses a C-PAP. She has some chronic back pain as well as chronic neck pain. She has known gastroesophageal reflux. She has hypercholesterolemia. She is a former smoker who quit following her cardiac surgery in July 2016. PAST SURGICAL HISTORY: The patient has had a carpal tunnel release on the right 20 years ago. She had a hysterectomy with bilateral salpingo-oophorectomy also in 1992. She had a cervical spine fusion in 1993 with a bladder suspension also in 1993. She had an appendectomy in 2001. She had a cervical fusion with a laminectomy in 2004. Cholecystectomy was done in 2004. She had a fracture of her right ulna in March 2005. She had a left carpal tunnel release in 2009. Three vessel bypass in July 2016. SOCIAL HISTORY: She is a former smoker and has been a drinker, but denies any alcohol intake currently. REVIEW OF SYSTEMS: The patient's chest pain now has resolved. She is having no history of seizure or stroke. She denies any shortness of breath, productive cough or wheezing. She has had no GI or symptoms. She does have chronic back and neck pain. PHYSICAL EXAMINATION: The patient is a pleasant woman, but somewhat uncomfortable now immediately following her surgery. Sclerae are anicteric. Mucous membranes are moist. The neck is supple. Heart exam shows a regular rhythm. The lungs are clear to auscultation. The abdomen shows several small bandages in the upper and mid abdomen. She does have bowel sounds present. She is tender in the areas around her incisions, but the abdomen is otherwise soft in the lower quadrants. The extremities are without edema. LABORATORY STUDIES: Laboratory studies in the recovery room showed a white count of 10 with a hemoglobin of 12, hematocrit of 37 and a platelet count of 244,000. She had a chemistry profile that showed normal electrolytes with BUN of 14, creatinine 0.7 and glucose of 102. Magnesium was 1.7. CK was 96 with an MB of 1.9 and a troponin was less than 0.02. A chest x-ray done in the emergency department shows sternal wires in place, but no evidence of pneumothorax or pulmonary infiltrate and the heart does not appear enlarged. IMPRESSION: 1. Chest pressure/pain postop from a laparoscopic epigastric incisional hernia repair. 2. History of previous myocardial infarction with coronary artery bypass grafting July 2016. 3. Hypertension. 4. Hypercholesterolemia. 5. Obstructive sleep apnea. 6. Chronic back pain. 7. Chronic cervical pain. 8. Chronic obstructive pulmonary disease. 9. Diabetes mellitus type 2. 10. Gastroesophageal reflux. 11. Status post laparoscopic epigastric incisional hernia repair with mesh. PLAN: The patient has been placed into a monitored bed for serial cardiac enzymes and telemetry. I suspect that her discomfort is not cardiac, but given her cardiac history this cannot be totally discounted at this time. The hospitalist was consulted and has very kindly taken the lead in ordering her medications and her labs so that we can continue to assess her appropriately. Dr. Fischer of anesthesia spoke with Dr. Lundy who is out of town today but can see her in the morning. ALISSA
[2017-06-05] MEDS: LOSARTAN 50 MG TAB PO SCH (20:53)
[2017-06-05] MEDS: METOPROLOL TART 25 MG TABLET PO SCH (20:53)
[2017-06-05] MEDS ORDERED: HumaLOG INSULIN (NovoLOG) PER UNIT SC SCH (21:00)
[2017-06-05] MEDS ORDERED: PRAMIPEXOLE (MIRAPEX) 0.125 MG TAB PO SCH (21:00)
[2017-06-05] MEDS ORDERED: LIDOCAINE 5% (LIDODERM) PATCH TD SCH (21:00)
--- NOTE | 2017-06-05 21:22 | IPN ---
DATE: 06/05/2017 REFERRING PHYSICIAN: Dr. Will Fischer and Dr. Tr Jones INDICATION: Chest pain, postoperative. HISTORY OF PRESENT ILLNESS: Mrs. Wallace is known to me. She is a pleasant 61-year-old female who underwent coronary artery bypass grafting in July 2016. She continued to have chest discomfort though in postoperative period and eventually prompted performance of a cardiac catheterization just 3 weeks ago that revealed patent bypasses to RCA and obtuse marginal and medical disease in left anterior descending (LAD). She was felt to be adequately prepared from cardiac perspective for surgery. The procedure was performed by Dr. Jones earlier today. She had fairly large paraesophageal hernia repair. The procedure itself was uneventful but then in the recovery room she described episode of pressure-like chest discomfort radiating to her jaw that was relieved by sublingual nitroglycerin. An electrocardiogram performed did not reveal any acute ST-segment abnormalities, she has chronic right bundle branch block. She was moved to monitored bed with the idea to monitor the patient overnight. At the time of my evaluation, the patient is in ICU bed. She has no complaints. She says that since the episode after the anesthesia resolved she has not had recurrence. She has a lot of soreness in her abdomen after surgery earlier today. She denies any dyspnea, nausea, or vomiting. PAST MEDICAL HISTORY: Coronary artery disease as above. She underwent coronary artery bypass grafting in [place] in July 2016 and received left internal mammary artery (REYNA) to diagonal, saphenous vein graft (SVG) to obtuse marginal, SVG to posterior descending artery (PDA). Her last cardiac catheterization was on 05/17/2017 at [facility] in [place]. It revealed left ventricular ejection fraction (LVEF) 55%, patent SVG to right coronary artery and patent SVG to obtuse marginal and patent [place] LAD. There was diffuse nonocclusive disease. Additional past medical history is positive for type 2 diabetes, hypertension, chronic back pain, asthma, gastroesophageal reflux disease (GERD), hypercholesterolemia, chronic constipation, chronic obstructive pulmonary disease (COPD), sleep apnea, osteoporosis, vitamin D deficiency and remote history of cocaine use. PAST SURGICAL HISTORY: Positive for carpal tunnel surgery, hysterectomy, cervical fusion, bladder suspension, appendectomy, cholecystectomy, carpal tunnel on the left side and bypass surgery as above. OUTPATIENT MEDICATIONS: The patient takes Advair, aspirin 81 a day, atorvastatin 10 a day, calcium with vitamin D, Claritin 10 a day, Dexilant 60 a day, Estrace vaginal cream, fiber, Flonase, Incruse Ellipta, losartan/HCTZ 50/12.5 once a day , metformin 500 twice a day, metoprolol 25 twice a day, pramipexole 0.125 at bedtime, sertraline 100 a day, temazepam 15 a day and Ventolin inhaler ALLERGIES: There are no reported medication allergies. FAMILY HISTORY AND SOCIAL HISTORY: Her mother has hypertension, diabetes and COPD. Father has of consequences of COPD. Sister is diabetic, one of her sons is diabetic and a daughter is also diabetic. SOCIAL HISTORY: The patient is , has three children, lives with significant other. There is a remote history of cocaine, alcohol and tobacco use. REVIEW OF SYSTEMS: On the review of systems the patient denies currently any headache, nausea, vomiting and diarrhea. No chest pain, no palpitations. No dyspnea. She does have some abdominal pain related to surgery. No peripheral edema. Prior to the surgery she had fairly chronic chest discomfort that was described as pressure radiating to her jaw. This was present even before the heart catheterization and was similar to the presentation that she had in recovery. PHYSICAL EXAMINATION: Mrs. Wallace is a white middle aged female who actually appears maybe slightly older than her calendar age. Blood pressure 121/67, heart rate has been 60s and 70s. She saturates 96% on 2 liters of oxygen by nasal cannula. Weight is documented as 64 kg. Her jugular venous pressure is not up. I do not appreciate carotid bruit. Lungs are clear to auscultation bilaterally with good air movement. Heart: Exam reveals regular rhythm. There is no murmur, gallop or rub. There is scar after sternotomy. There is some dysmorphia of the sternum close to the incision wound I suspect due to some uneven healing. Abdomen is diffusely tender, but soft. No guarding. Extremities are free of edema. Peripheral pulses are palpable. LABORATORY DATA: Basic metabolic panel is normal. Magnesium was 1.7. First set of cardiac enzymes were negative. Second is pending at the time of my dictation, albumin is 3.7 and CBC is normal. ECG reveals presence of sinus rhythm with right bundle branch block and nonspecific ST-T abnormalities not appreciably different from her baseline. ASSESSMENT/PLAN: Ms. Wallace is 61-year-old female who underwent repair of paraesophageal hernia and in recovery period had a prolonged episode of chest discomfort, ultimately relieved by sublingual nitroglycerin. The description of the chest discomfort seems very consistent with angina, but her recent cardiac catheterization revealed medical disease and patent bypasses. At this point, I would continue observation only. I do believe that it is likely that she will rule out for myocardial infarction and if her ECG stays normal as well I plan on allowing discharge tomorrow. In the interim, I will continue chronic medications. Considering that she had surgery earlier today, I would not provide additional anticoagulation; will keep her only on aspirin. She is already on beta kayla and statin. Thank you for this consultation. CC: MD Darinel Miranda NP MTDD
[2017-06-06] VITALS: BP 102/55
[2017-06-06] MEDS: NORCO, ANEXSIA 5/325MG TABLET (HYDROcodone/ACETAMINOPHEN) PO PRN ×2 (00:09→04:06)
[2017-06-06 00:26] VITALS: BP 111/55
[2017-06-06 02:00] VITALS: BP 103/57
[2017-06-06 04:00] VITALS: BP 126/60
[2017-06-06 04:54] LABS: MEAN CORPUSCULAR HGB CONC 33.5 g/dl (32.0-36.5); MEAN CORPUSCULAR VOLUME 83.6 fl (80.0-96.0); RED CELL DISTRIBUTION WIDTH 13.9 % (11.5-14.5); WHITE BLOOD COUNT 7.5 10^3/uL (4.0-10.0)
[2017-06-06 05:23] LABS: ANION GAP 6 MEQ/L (8-16); BLOOD UREA NITROGEN 12 MG/DL (7-18); CALCIUM LEVEL 8.4 MG/DL (8.8-10.2); CARBON DIOXIDE LEVEL 28 MEQ/L (21-32); CHLORIDE LEVEL 100 MEQ/L (98-107); CREATININE FOR GFR 0.71 MG/DL (0.55-1.02); GLOMERULAR FILTRATION RATE > 60.0 (>45); GLUCOSE, FASTING 131 MG/DL (80-110); POTASSIUM SERUM 3.7 MEQ/L (3.5-5.1); SODIUM LEVEL 134 MEQ/L (136-145)
--- NOTE | 2017-06-06 07:38 | IPN ---
DATE: 06/06/2017 Mrs. Wallace had a good night. She tells me that she did not sleep this well in probably years. Denies any recurrence of chest pain. Still has some soreness in her abdomen. Her cardiac enzymes remain negative. An ECG this morning is unchanged from yesterday. There is no ST-T abnormality. PHYSICAL EXAMINATION: Middle-aged woman, alert, oriented, appropriate, no distress. Blood pressure 103/53. Heart rate has been in 50s to 70s. Afebrile. Saturation 95% on 1 liter of oxygen by nasal cannula. Weight 67.6 kg. Jugular venous pulse (JVP) is not elevated. Lungs are clear to auscultation with good air movement. Heart exam reveals regular rhythm without gallop, rub or murmur. Abdomen is diffusely tender but soft. No guarding and no peripheral edema. Neurologically, she is intact. No skin lesions. Laboratory miranda, basic metabolic panel is normal but for borderline hyponatremia at 134 and glucose 131. Cardiac enzymes completely negative times three, and CBC is normal as well. ECG as above. ASSESSMENT AND PLAN: Mrs. Wallace is a 61-year-old female who underwent three-vessel bypass surgery in July 2016 and yesterday underwent repair of paraesophageal hernia. In postoperative period developed prolonged chest discomfort eventually controlled by sublingual nitroglycerin. There were no convincing ischemic changes on EKG and she ruled out for myocardial infarction. There has been no recurrence of chest pain. She has had similar episodes of chest pain all along that eventually led to performance of cardiac catheterization just approximately 3 weeks ago revealing no obstructive lesions requiring intervention. Consequently, I believe that if patient can ambulate she can be discharged home. I do not plan any further immediate cardiac testing. I would continue her chronic medications. ALISSA
[2017-06-06] MEDS: HumaLOG INSULIN (NovoLOG) PER UNIT SC SCH (07:49)
[2017-06-06 07:50] VITALS: BP 118/65
[2017-06-06] MEDS: ATORVASTATIN 10 MG TAB PO SCH (07:50)
[2017-06-06] MEDS: ASPIRIN 81 MG ENTERIC TAB PO SCH (07:50)
[2017-06-06] MEDS: METOPROLOL TART 25 MG TABLET PO SCH (07:50)
[2017-06-06] MEDS: LOSARTAN 50 MG TAB PO SCH (07:50)
[2017-06-06] MEDS: SERTRALINE 100 MG TAB PO SCH (07:50)
[2017-06-06] MEDS: **NOTE PATIENT COMMENT** MISC XX SCH (07:51)
[2017-06-06 08:00] VITALS: BP 118/65
[2017-06-06] MEDS: CARISOPRODOL 350 MG TAB PO SCH (08:06)
[2017-06-06] MEDS: FLUTICASONE PROP 0.05% NASAL SPRAY 16 GM (FLONASE) SCH (08:07)
--- NOTE | 2017-06-06 16:12 | ECGEPIP ---
Stationary ECG Study [facility] Test Date: 2017-06-05 Pat Name: MALGORZATA JOSHI Department: Room: - Gender: F Medication Specialist: : 1955 Requested By: Tc Soler Order Number: [id number] Reading MD: Holden Denney Measurements Intervals [place] Rate: 67 P: -7 VA: 166 QRS: 69 QRSD: 133 T: 42 QT: 458 QTc: 484 Interpretive Statements SINUS RHYTHM RIGHT BUNDLE BRANCH BLOCK Probable right ventricle hypertrophy. No significant change compared with 03/23/2017 at 1808 hours. Electronically Signed On 06-06-2017 16:11:39 EDT by Holden Denney
--- NOTE | 2017-06-06 16:27 | ECGEPIP ---
Stationary ECG Study [facility] Test Date: 2017-06-06 Pat Name: MALGORZATA JOSHI Department: Room: [place] [address] Gender: F Unix Analyst: NORMA : 1955 Requested By: Mariaelena Lundy Order Number: [id number] Reading MD: Holden Denney Measurements Intervals [place] Rate: 71 P: 32 SD: 172 QRS: 77 QRSD: 144 T: 42 QT: 452 QTc: 494 Interpretive Statements SINUS RHYTHM RIGHT BUNDLE BRANCH BLOCK Probable right ventricle hypertrophy. No significant change compared with 06/05/2017. Electronically Signed On 06-06-2017 16:26:53 EDT by Holden Denney
--- NOTE | 2017-06-06 20:41 | IPN ---
DATE: 06/06/2017 HISTORY: The patient underwent a laparoscopic epigastric incisional hernia repair with mesh and complained of chest pressure and pain in the recovery room. She was placed in the hospital for serial cardiac injury profiles and telemetry to assess for any evidence of cardiac injury. The patient reports she feels fine today, except for some pain in the operative area. She has no chest pressure. She has no nausea or vomiting. She has been tolerating a diet and reports voiding fine. She remains on telemetry in the ICU with no evidence of arrhythmia. Vital signs: The patient's pulse is between 57 and 70. Blood pressure, respiratory rate and pulse oximetry are fine. Intake and output: She had 2680 in on the with 460 recorded out. Today she has had an adequate urine output and took breakfast well. PHYSICAL EXAMINATION: The patient is alert and oriented. Heart exam shows a regular rhythm at about 68. Lungs are clear, but distant. She has bandages on her incisions with some bruising showing in the epigastrium. She has active bowel sounds and the abdomen is without undue tenderness. LABORATORY STUDIES: She has had three sets of cardiac injury panels that are all negative with negative troponins. There is a note from Dr. Lundy, her scrap separator already available from this morning, which indicates that he feels she can be discharged home. He recommended continuing her preadmission medications. IMPRESSION: Resolved chest discomfort with no evidence of cardiac injury and doing well postop from her epigastric incisional hernia repair. PLAN: The patient will be discharged home. She has a prescription for some analgesics to take as needed. She was advised against any strenuous physical activity or lifting greater than 25 pounds. She has a followup appointment in my office in about a week to 10 days. She can shower 24 hours after the surgery end. She knows to call my office if there are any problems. She will continue all of her usual preadmission medications. ALISSA
--- NOTE | 2017-06-15 16:23 | DSES ---
DATE OF ADMISSION: 06/05/2017 DATE OF DISCHARGE: 06/06/2017 ADMITTING DIAGNOSIS: Chest pain status post epigastric hernia repair. HOSPITAL COURSE: The patient is a pleasant 61-year-old woman who had suffered a myocardial infarction in July 2016 while in [place]. She underwent an urgent coronary artery bypass grafting. She developed a hernia in her epigastrium at the inferior end of her median sternotomy scar. She was seen for preoperative evaluation by her primary physician and also her measurement supervisor, Dr. Lundy. She had a preoperative coronary arteriogram performed that revealed that her bypasses were patent. On June 05 she was brought to the operating room, where she underwent a laparoscopic repair of her ventral incisional hernia. A 4 cm fascial defect was partially closed primarily and then covered with a 12 cm Parietex patch, which was placed laparoscopically. The surgery was uncomplicated. In the recovery room she reported chest pressure and discomfort. No EKG changes were identified, but given her cardiac history a decision was made to admit her to the intensive care unit for cardiac monitoring and serial cardiac injury profiles. She had no recurrence of the chest discomfort. Her serial cardiac injury panels (CIPs) and troponins were negative. Her measurement supervisor saw her on the morning of June 06 and cleared her for discharge. She was therefore discharged home on June 06 in good condition. FINAL DIAGNOSES: 1. Postoperative chest discomfort. 2. Atherosclerotic coronary artery disease. 3. Status post coronary artery bypass grafting. 4. Diabetes mellitus, type 2. 5. Hypertension. 6. Asthma and chronic obstructive pulmonary disease. 7. Obstructive sleep apnea. 8. Chronic back pain. 9. Gastroesophageal reflux. 10. Hypercholesterolemia. 11. Epigastric incisional hernia. PROCEDURE PERFORMED: Laparoscopic repair of epigastric incisional hernia with 12 cm round Parietex patch. DISPOSITION: The patient was discharged home on the 06/06/2017. She was to followup in the office on June 18 at 8:30. She could pursue light activity as tolerated but was advised against any strenuous activity or lifting greater than 25 pounds. She could take a regular diet. She was allowed to shower 24 hours after surgery. She was to leave Steri-Strips in place to come off on their own. She was to continue her preadmission medications. She had been given a prescription for [place] to take on an as-needed basis for postoperative pain. She was to call for any problems.
== END 2017-06-06 10:30 | disposition home or self-care (01) | DRG 983 ==
LOC: M SDC 06:01 → M ICU 13:54
PROVIDERS: ADMIT Surgery; ATTEND Surgery
PROC: 0WUF4JZ Supplement Abdominal Wall with Synthetic Substitute, Percutaneous Endoscopic Approach (ICD-10-PCS; principal; 2017-06-05 07:30)
DX: I25.709 Atherosclerosis of coronary artery bypass graft(s), unspecified, with unspecified angina pectoris (principal); E11.9 Type 2 diabetes mellitus without complications; I25.10 Atherosclerotic heart disease of native coronary artery without angina pectoris; I10 Essential (primary) hypertension; J45.909 Unspecified asthma, uncomplicated; J44.9 Chronic obstructive pulmonary disease, unspecified; G47.33 Obstructive sleep apnea (adult) (pediatric); M54.2 Cervicalgia; F32.9 Major depressive disorder, single episode, unspecified; K59.00 Constipation, unspecified; K21.9 Gastro-esophageal reflux disease without esophagitis; E55.9 Vitamin D deficiency, unspecified; M81.0 Age-related osteoporosis without current pathological fracture; I25.2 Old myocardial infarction; E78.00 Pure hypercholesterolemia, unspecified; Z87.891 Personal history of nicotine dependence; Z98.1 Arthrodesis status; Z95.1 Presence of aortocoronary bypass graft; K43.2 Incisional hernia without obstruction or gangrene; Z79.82 Long term (current) use of aspirin; Z79.899 Other long term (current) drug therapy; Z90.49 Acquired absence of other specified parts of digestive tract

== ENCOUNTER → 2018-03-04 | Outpatient (CLI) | payer MEDICARE, MEDICAID ==
[2018-03-04 13:48] LABS: ESTIMATED AVERAGE GLUCOSE 151 MG/DL (60-110); HEMOGLOBIN A1c 6.9 %
[2018-03-04 15:05] LABS: TOTAL 25(OH) VITAMIN D 21.5 NG/ML (30.0-100.0)
== END ==
LOC: M WUC 10:08
DX: E55.9 Vitamin D deficiency, unspecified (principal); E11.9 Type 2 diabetes mellitus without complications
CPT/HCPCS: 83036

== ENCOUNTER → 2018-04-02 | Outpatient (CLI) | payer MEDICARE, MEDICAID | LOC: M RAD 08:52 | DX: Z01.818 Encounter for other preprocedural examination (principal); R06.02 Shortness of breath; R05 Cough; S22.31XD Fracture of one rib, right side, subsequent encounter for fracture with routine healing; E11.9 Type 2 diabetes mellitus without complications | CPT/HCPCS: 71046 ==

== ENCOUNTER → 2018-04-02 | Outpatient (CLI) | payer MEDICARE, MEDICAID ==
[2018-04-02 10:04] LABS: BASO # 0.1 10^3/uL (0.0-0.2); BASO % 0.6 % (0.0-1.0); EOS # 0.1 10^3/uL (0.0-0.50); EOS % 1.4 % (0.0-3.0); HEMOGLOBIN 13.3 g/dl (12.0-15.5); IMMATURE GRANULOCYTE % 0.8 % (0-3.0); LYMPH # 3.1 10^3/uL (1.5-4.5); MEAN CORPUSCULAR HEMOGLOBIN 28.8 pg (27.0-33.0); MEAN CORPUSCULAR HGB CONC 33.3 g/dl (32.0-36.5); MEAN CORPUSCULAR VOLUME 86.6 fl (80.0-96.0); MONO # 0.6 10^3/uL (0.0-0.8); MONO % 6.8 % (0.0-5.0); NEUTROPHILS # 4.6 10^3/uL (1.8-7.7); NEUTROPHILS % 54.4 % (36.0-66.0); PLATELET COUNT, AUTOMATED 321 10^3/uL (150-450); RED BLOOD COUNT 4.62 10^6/uL (4.00-5.40); RED CELL DISTRIBUTION WIDTH 13.2 % (11.5-14.5); WHITE BLOOD COUNT 8.5 10^3/uL (4.0-10.0)
[2018-04-02 10:40] LABS: ALBUMIN 3.9 GM/DL (3.2-5.2); ALBUMIN/GLOBULIN RATIO 1.18 (1.00-1.93); ALKALINE PHOSPHATASE 99 U/L (45-117); ALT/SGPT 23 U/L (12-78); ANION GAP 8 MEQ/L (8-16); AST/SGOT 16 U/L (7-37); BILIRUBIN,TOTAL 0.2 MG/DL (0.2-1.0); BLOOD UREA NITROGEN 19 MG/DL (7-18); CALCIUM LEVEL 9.4 MG/DL (8.8-10.2); CARBON DIOXIDE LEVEL 28 MEQ/L (21-32); CHLORIDE LEVEL 102 MEQ/L (98-107); CREATININE FOR GFR 0.82 MG/DL (0.55-1.30); GLOMERULAR FILTRATION RATE > 60.0 (>45); GLUCOSE, FASTING 113 MG/DL (70-100); POTASSIUM SERUM 4.4 MEQ/L (3.5-5.1); SODIUM LEVEL 138 MEQ/L (136-145); TOTAL PROTEIN 7.2 GM/DL (6.4-8.2)
[2018-04-02 11:08] LABS: ESTIMATED AVERAGE GLUCOSE 148 MG/DL (60-110); HEMOGLOBIN A1c 6.8 %
== END ==
LOC: M LAB 08:46
DX: Z01.812 Encounter for preprocedural laboratory examination (principal)

== ENCOUNTER → 2018-04-11 | Outpatient (REF) | payer MEDICARE, MEDICAID | LOC: M LAB REF 11:11 | DX: J32.0 Chronic maxillary sinusitis (principal) ==

== ENCOUNTER → 2018-04-11 | Outpatient (CLI) | payer MEDICARE, MEDICAID | LOC: M RAD 06:48 | DX: R05 Cough (principal); R07.9 Chest pain, unspecified; J32.0 Chronic maxillary sinusitis; S22.42XD Multiple fractures of ribs, left side, subsequent encounter for fracture with routine healing | CPT/HCPCS: 71250 ==

== ENCOUNTER 2018-06-25 11:12 | Observation (INO) | payer MEDICARE, MEDICAID ==
[2018-06-25 11:38] LABS: BASO % 0.4 % (0.0-1.0); EOS # 0.1 10^3/uL (0.0-0.50); EOS % 1.2 % (0.0-3.0); HEMATOCRIT 42.5 % (36.0-47.0); HEMOGLOBIN 14.4 g/dl (12.0-15.5); IMMATURE GRANULOCYTE % 0.7 % (0-3.0); LYMPH # 3.2 10^3/uL (1.5-4.5); LYMPH % 35.2 % (24.0-44.0); MEAN CORPUSCULAR HEMOGLOBIN 28.7 pg (27.0-33.0); MEAN CORPUSCULAR HGB CONC 33.9 g/dl (32.0-36.5); MEAN CORPUSCULAR VOLUME 84.7 fl (80.0-96.0); MONO # 0.6 10^3/uL (0.0-0.8); MONO % 6.6 % (0.0-5.0); NEUTROPHILS # 5.1 10^3/uL (1.8-7.7); NEUTROPHILS % 55.9 % (36.0-66.0); PLATELET COUNT, AUTOMATED 317 10^3/uL (150-450); RED BLOOD COUNT 5.02 10^6/uL (4.00-5.40); RED CELL DISTRIBUTION WIDTH 12.2 % (11.5-14.5); WHITE BLOOD COUNT 9.1 10^3/uL (4.0-10.0)
[2018-06-25 11:54] LABS: INR 0.92; PROTHROMBIN TIME 12.4 SECONDS (12.1-14.4)
[2018-06-25 11:55] LABS: PARTIAL THROMBOPLASTIN TIME 28.3 SECONDS (25.4-37.6)
[2018-06-25 12:28] LABS: ALBUMIN 3.9 GM/DL (3.2-5.2); ALBUMIN/GLOBULIN RATIO 0.98 (1.00-1.93); ALKALINE PHOSPHATASE 110 U/L (45-117); ALT/SGPT 23 U/L (12-78); ANION GAP 9 MEQ/L (8-16); AST/SGOT 19 U/L (7-37); BILIRUBIN,DIRECT 0.1 MG/DL (0.0-0.2); BILIRUBIN,TOTAL 0.4 MG/DL (0.2-1.0); BLOOD UREA NITROGEN 10 MG/DL (7-18); CALCIUM LEVEL 9.1 MG/DL (8.8-10.2); CARBON DIOXIDE LEVEL 28 MEQ/L (21-32); CHLORIDE LEVEL 93 MEQ/L (98-107); CPK CREATINE PHOSPHOKINASE 90 U/L (26-192); CREATININE FOR GFR 0.74 MG/DL (0.55-1.30); GLOMERULAR FILTRATION RATE > 60.0 (>45); GLUCOSE, FASTING 108 MG/DL (70-100); LIPASE 96 U/L (73-393); MB/CK RELATIVE INDEX 1.44 (< OR =4); POTASSIUM SERUM 3.5 MEQ/L (3.5-5.1); SODIUM LEVEL 130 MEQ/L (136-145); THYROID STIMULATING HORMONE 0.818 uIU/ML (0.358-3.740); TOTAL PROTEIN 7.9 GM/DL (6.4-8.2); TROPONIN I < 0.02 NG/ML (< 0.10)
[2018-06-25] MEDS: MORPHINE 2 MG/ML 1ML SYRINGE (J2270) IV ×2 (13:23)
[2018-06-25] MEDS: ASPIRIN 81 MG CHEW TABLET PO ×2 (13:24)
[2018-06-25] MEDS ORDERED: ISOVUE-370 76% 100ML VIAL (Q9967) As Ordered ×2 (13:25)
[2018-06-25] MEDS: NS 1,000 ML IV ×4 (13:25→17:08)
[2018-06-25 13:37] LABS: D-DIMER QUANT 413.6 ng/ml (<500)
[2018-06-25 15:36] LABS: CPK CREATINE PHOSPHOKINASE 98 U/L (26-192); MB/CK RELATIVE INDEX 1.43 (< OR =4); TROPONIN I < 0.02 NG/ML (< 0.10)
[2018-06-25] MEDS ORDERED: ALBUTEROL 90 MCG/ACT 8GM HFA INHALER INH ×2 (17:15)
[2018-06-25] MEDS: HumaLOG INSULIN (NovoLOG) PER UNIT SC ×4 (17:30→21:00)
[2018-06-25] MEDS ORDERED: DEXTROSE 50% 50 ML SYRINGE IV ×2 (17:45)
[2018-06-25] MEDS ORDERED: GLUCAGON FOR INJ 1 MG VIAL (J1610) SC ×2 (17:45)
[2018-06-25] MEDS ORDERED: GLUCOSE 4 GM CHEW TABLET PO ×2 (17:45)
[2018-06-25] MEDS: PERCOCET 5MG/325MG TAB PO ×2 (18:32)
[2018-06-25 18:46] LABS: ESTIMATED AVERAGE GLUCOSE 134 MG/DL (60-110); HEMOGLOBIN A1c 6.3 %
[2018-06-25] MEDS ORDERED: ENOXAPARIN 80 MG/0.8 ML SYRINGE (J1650) SC ×2 (19:00)
[2018-06-25 19:07] LABS: AMPHETAMINES LEVEL URINE NEGATIVE (NEGATIVE); BARBITURATES URINE NEGATIVE (NEGATIVE); BENZODIAZEPINES URINE NEGATIVE (NEGATIVE); CANNABINOIDS URINE POSITIVE (NEGATIVE); COCAINE METABOLITE URINE NEGATIVE (NEGATIVE); METHADONE URINE NEGATIVE (NEGATIVE); OPIATES URINE POSITIVE (NEGATIVE); PHENCYCLIDINE URINE NEGATIVE (NEGATIVE)
[2018-06-25 20:15] LABS: BEDSIDE GLUCOSE 203 MG/DL (80-115)
[2018-06-25] MEDS: METOPROLOL TART 25 MG TABLET PO ×2 (20:23)
[2018-06-25] MEDS: LISINOPRIL 20 MG TAB PO ×2 (20:24)
[2018-06-25] MEDS: ATORVASTATIN 10 MG TAB PO ×2 (20:24)
[2018-06-25] MEDS: PRAMIPEXOLE (MIRAPEX) 0.125 MG TAB PO ×2 (20:35)
[2018-06-25] MEDS: **NOTE PATIENT COMMENT** MISC XX ×2 (21:00)
[2018-06-25] MEDS: ADVAIR HFA 115/21MCG INHALER INH ×2 (21:07)
[2018-06-25 21:38] LABS: CPK CREATINE PHOSPHOKINASE 91 U/L (26-192); MB/CK RELATIVE INDEX 1.32 (< OR =4); TROPONIN I < 0.02 NG/ML (< 0.10)
[2018-06-25] MEDS: LIDOCAINE 5% (LIDODERM) PATCH TD ×2 (22:04)
[2018-06-25] MEDS: GABAPENTIN 300 MG CAP PO ×2 (22:47)
[2018-06-26] MEDS: ONDANSETRON 4 MG TAB (S0181) PO ×4 (00:01→22:42)
[2018-06-26] MEDS: PERCOCET 5MG/325MG TAB PO ×6 (01:55→20:14)
[2018-06-26] MEDS: NS 1,000 ML IV ×2 (05:04)
[2018-06-26 06:02] LABS: BASO % 0.4 % (0.0-1.0); EOS # 0.1 10^3/uL (0.0-0.50); EOS % 1.5 % (0.0-3.0); HEMATOCRIT 39.4 % (36.0-47.0); IMMATURE GRANULOCYTE % 0.5 % (0-3.0); LYMPH # 2.3 10^3/uL (1.5-4.5); LYMPH % 29.5 % (24.0-44.0); MEAN CORPUSCULAR HEMOGLOBIN 28.3 pg (27.0-33.0); MEAN CORPUSCULAR VOLUME 85.7 fl (80.0-96.0); MONO # 0.6 10^3/uL (0.0-0.8); MONO % 8.1 % (0.0-5.0); NEUTROPHILS # 4.8 10^3/uL (1.8-7.7); PLATELET COUNT, AUTOMATED 302 10^3/uL (150-450); RED CELL DISTRIBUTION WIDTH 12.2 % (11.5-14.5); WHITE BLOOD COUNT 7.9 10^3/uL (4.0-10.0)
[2018-06-26 06:22] LABS: ANION GAP 5 MEQ/L (8-16); BLOOD UREA NITROGEN 9 MG/DL (7-18); CALCIUM LEVEL 9.2 MG/DL (8.8-10.2); CARBON DIOXIDE LEVEL 31 MEQ/L (21-32); CHLORIDE LEVEL 100 MEQ/L (98-107); CREATININE FOR GFR 0.64 MG/DL (0.55-1.30); GLOMERULAR FILTRATION RATE > 60.0 (>45); GLUCOSE, FASTING 149 MG/DL (70-100); POTASSIUM SERUM 4.3 MEQ/L (3.5-5.1); SODIUM LEVEL 136 MEQ/L (136-145)
[2018-06-26] MEDS: ADVAIR HFA 115/21MCG INHALER INH ×4 (07:38→19:55)
[2018-06-26] MEDS: VITAMIN D 1,000 INTERNATIONAL UNITS TABLET PO ×2 (08:41)
[2018-06-26] MEDS: METOPROLOL TART 25 MG TABLET PO ×4 (08:41→20:13)
[2018-06-26] MEDS: SERTRALINE 100 MG TAB PO ×2 (08:42)
[2018-06-26] MEDS: ASPIRIN 81 MG ENTERIC TAB PO ×2 (08:42)
[2018-06-26] MEDS: LOSARTAN 50 MG TAB PO ×2 (08:42)
[2018-06-26] MEDS: HEPARIN SOD (PORCINE) 5000 UNITS/ML VIAL SQ ×4 (08:42→20:12)
[2018-06-26] MEDS: **NOTE PATIENT COMMENT** MISC XX ×4 (08:43→20:16)
[2018-06-26] MEDS: LIDOCAINE 5% (LIDODERM) PATCH TD ×4 (08:43)
[2018-06-26] MEDS: HumaLOG INSULIN (NovoLOG) PER UNIT SC ×8 (08:44→20:18)
[2018-06-26] MEDS: GABAPENTIN 300 MG CAP PO ×4 (08:44→20:13)
[2018-06-26] MEDS ORDERED: ENOXAPARIN 80 MG/0.8 ML SYRINGE (J1650) SC ×2 (09:00)
[2018-06-26] MEDS: IPRATROPIUM 0.06% NASAL SPRAY 15 ML (ATROVENT) ×2 (09:00)
[2018-06-26] MEDS ORDERED: LORazepam 2 MG/ML VIAL (J2060) IM ×2 (09:54)
[2018-06-26] MEDS ORDERED: SLF 3 ML SYR IV ×2 (10:30)
[2018-06-26] MEDS: SLF 3 ML SYR IV ×4 (11:31→20:17)
[2018-06-26] MEDS: LORazepam 2 MG/ML VIAL (J2060) IV ×2 (11:31)
[2018-06-26 13:31] LABS: BEDSIDE GLUCOSE 168 MG/DL (80-115)
[2018-06-26] MEDS: hydroCHLOROthiazide 12.5 MG CAPSULE PO ×2 (13:35)
[2018-06-26 16:38] LABS: BEDSIDE GLUCOSE 152 MG/DL (80-115)
[2018-06-26] MEDS: LIDOCAINE 5% OINT 30 GM TOP ×2 (16:48)
[2018-06-26 20:08] LABS: BEDSIDE GLUCOSE 110 MG/DL (80-115)
[2018-06-26] MEDS: PRAMIPEXOLE (MIRAPEX) 0.125 MG TAB PO ×2 (20:12)
[2018-06-26] MEDS: ATORVASTATIN 10 MG TAB PO ×2 (20:13)
[2018-06-27] MEDS: PERCOCET 5MG/325MG TAB PO ×4 (00:06→14:16)
[2018-06-27] MEDS: SLF 3 ML SYR IV ×4 (04:45→13:43)
[2018-06-27 05:57] LABS: HEMATOCRIT 39.9 % (36.0-47.0); HEMOGLOBIN 13.3 g/dl (12.0-15.5); MEAN CORPUSCULAR HEMOGLOBIN 28.5 pg (27.0-33.0); MEAN CORPUSCULAR HGB CONC 33.3 g/dl (32.0-36.5); MEAN CORPUSCULAR VOLUME 85.4 fl (80.0-96.0); PLATELET COUNT, AUTOMATED 288 10^3/uL (150-450); RED BLOOD COUNT 4.67 10^6/uL (4.00-5.40); RED CELL DISTRIBUTION WIDTH 12.3 % (11.5-14.5); WHITE BLOOD COUNT 7.5 10^3/uL (4.0-10.0)
[2018-06-27 06:16] LABS: ANION GAP 6 MEQ/L (8-16); BLOOD UREA NITROGEN 9 MG/DL (7-18); CALCIUM LEVEL 9.7 MG/DL (8.8-10.2); CARBON DIOXIDE LEVEL 32 MEQ/L (21-32); CHLORIDE LEVEL 98 MEQ/L (98-107); CREATININE FOR GFR 0.62 MG/DL (0.55-1.30); GLOMERULAR FILTRATION RATE > 60.0 (>45); GLUCOSE, FASTING 125 MG/DL (70-100); MAGNESIUM LEVEL 1.8 MG/DL (1.8-2.4); POTASSIUM SERUM 4.3 MEQ/L (3.5-5.1); SODIUM LEVEL 136 MEQ/L (136-145)
[2018-06-27] MEDS: SERTRALINE 100 MG TAB PO ×2 (08:24)
[2018-06-27] MEDS: hydroCHLOROthiazide 12.5 MG CAPSULE PO ×2 (08:24)
[2018-06-27] MEDS: ASPIRIN 81 MG ENTERIC TAB PO ×2 (08:24)
[2018-06-27] MEDS: HumaLOG INSULIN (NovoLOG) PER UNIT SC ×4 (08:24→12:52)
[2018-06-27] MEDS: VITAMIN D 1,000 INTERNATIONAL UNITS TABLET PO ×2 (08:24)
[2018-06-27] MEDS: GABAPENTIN 300 MG CAP PO ×2 (08:25)
[2018-06-27] MEDS: LIDOCAINE 5% (LIDODERM) PATCH TD ×4 (08:25)
[2018-06-27] MEDS: METOPROLOL TART 25 MG TABLET PO ×2 (08:25)
[2018-06-27] MEDS: HEPARIN SOD (PORCINE) 5000 UNITS/ML VIAL SQ ×2 (08:25)
[2018-06-27] MEDS: LIDOCAINE 5% OINT 30 GM TOP ×2 (08:26)
[2018-06-27] MEDS: IPRATROPIUM 0.06% NASAL SPRAY 15 ML (ATROVENT) ×2 (08:26)
[2018-06-27] MEDS: ADVAIR HFA 115/21MCG INHALER INH ×2 (08:58)
[2018-06-27 12:01] LABS: BEDSIDE GLUCOSE 111 MG/DL (80-115)
[2018-06-27] MEDS: FLUBLOK(EGG FREE)(QUAD)INFLUENZA VACC 0.5ML SYRINGE (90682)18YRS&OLDER IM ×2 (12:40)
[2018-06-27] MEDS ORDERED: LISINOPRIL 20 MG TAB PO ×2 (21:00)
[2018-07-04 00:07] LABS: ZOLOFT,SERTRALINE LEVEL 31 ng/mL (30-200); ZOLOFT,SERTRALINE LEVEL 72 ng/mL (.)
== END 2018-06-27 15:05 | disposition home or self-care (01) ==
LOC: M ED 11:12 → M ED INP 16:27 → M PCU 19:54
DX: R55 Syncope and collapse (principal); R07.89 Other chest pain; E11.9 Type 2 diabetes mellitus without complications; I25.2 Old myocardial infarction; Z95.1 Presence of aortocoronary bypass graft; M54.5 Low back pain; I10 Essential (primary) hypertension; J44.9 Chronic obstructive pulmonary disease, unspecified; G47.33 Obstructive sleep apnea (adult) (pediatric); E78.5 Hyperlipidemia, unspecified; K21.9 Gastro-esophageal reflux disease without esophagitis; Z79.82 Long term (current) use of aspirin; Z79.84 Long term (current) use of oral hypoglycemic drugs; Z79.899 Other long term (current) drug therapy
CPT/HCPCS: Q9967

== ENCOUNTER → 2018-07-18 | Outpatient (CLI) | payer MEDICARE ==
[2018-07-18 13:24] LABS: CHOLESTEROL LEVEL 147 MG/DL (<200); CHOLESTEROL RISK RATIO 2.773 (<5); HDL CHOLESTEROL 53 MG/DL (>40); LDL CHOLESTEROL 76 MG/DL (<100); NON-HDL-C 94 MG/DL; TOTAL 25(OH) VITAMIN D 38.7 NG/ML (30.0-100.0); TRIGLYCERIDES LEVEL 89 MG/DL (<150)
[2018-07-18 15:28] LABS: ESTIMATED AVERAGE GLUCOSE 146 MG/DL (60-110); HEMOGLOBIN A1c 6.7 %
== END ==
LOC: M WUC 10:27
DX: E55.9 Vitamin D deficiency, unspecified (principal); E11.9 Type 2 diabetes mellitus without complications; E78.49 Other hyperlipidemia; M25.551 Pain in right hip
CPT/HCPCS: 83036

== ENCOUNTER → 2018-07-18 | Outpatient (CLI) | payer MEDICARE | LOC: M WUC 10:23 | DX: M25.551 Pain in right hip (principal) ==

== ENCOUNTER → 2019-02-04 | Outpatient (CLI) | payer MEDICARE, MEDICAID ==
[~2019-02-04] MED LIST changes: -/ESOM40CA PO; -/TIOT18INH INH; +ADVA115A INH; -AMLO5TAB2 PO; +AMLO5TAB6 PO; +ASPI81TA85 PO; +ESTR1CRE VA; +FIBE625T PO; +GABA-843 PO; +HYDR12CA PO; -INCR1INH IN; +INCR1INH INH; +IPRA6SP; +LIDO5DIS41 TD; +METF500T13 PO; +NEXI1CAP3 PO; +OXYC1TAB23 PO; -PRAM0.123 PO; +PRAM0.126 PO; +SPIR1CAP INH; +VITAD1000T PO; +ZALE10CA PO
--- NOTE | 2019-02-04 11:39 | REPMRS ---
Patient History The patient states she has not had a clinical breast exam in over a year. No known family history of cancer. 3D TOMOSYNTHESIS WAS PERFORMED. [facility] lifetime risk for breast cancer is 5.4%. Digital Mammo Screening Bilat: February 04, 2019 - Exam #: [id number] Bilateral CC and MLO view(s) were taken. Technologist: Cheli Moore, Technologist Prior study comparison: July 31, 2011, bilateral mammogram, performed at [facility]. July 24, 2010, bilateral mammogram, performed at [facility]. FINDINGS: There are scattered fibroglandular densities. There has been no change in the appearance of the mammogram from the prior studies. There is a mild amount of residual fibroglandular tissue which is fairly symmetric. There is no interval development of dominant mass, architectural distortion, or clustered microcalcification suggestive of malignancy. Assessment: BI-RADS/ACR category 1 mammogram. Negative Mammogram. Recommendation Routine screening mammogram in 1 year (for women over age 40). This mammogram was interpreted with the aid of an FDA-approved computer-aided dectection system. Electronically Signed By: Shailesh Tinoco MD 02/04/19 1387
== END ==
LOC: M RAD 10:32
PROVIDERS: ATTEND Nurse Practitioner Family
DX: Z12.31 Encounter for screening mammogram for malignant neoplasm of breast (principal)

== ENCOUNTER → 2019-04-01 | Outpatient (CLI) | payer MEDICARE, MEDICAID ==
[2019-04-01 13:24] LABS: BASO % 0.4 % (0.0-1.0); EOS # 0.1 10^3/uL (0.0-0.50); EOS % 1.1 % (0.0-3.0); HEMATOCRIT 41.9 % (36.0-47.0); HEMOGLOBIN 14.1 g/dl (12.0-15.5); LYMPH # 2.9 10^3/uL (1.5-4.5); LYMPH % 31.9 % (24.0-44.0); MEAN CORPUSCULAR HEMOGLOBIN 27.8 pg (27.0-33.0); MEAN CORPUSCULAR HGB CONC 33.7 g/dl (32.0-36.5); MEAN CORPUSCULAR VOLUME 82.6 fl (80.0-96.0); MONO # 0.7 10^3/uL (0.0-0.8); MONO % 7.5 % (0.0-5.0); NEUTROPHILS # 5.4 10^3/uL (1.8-7.7); NEUTROPHILS % 58.7 % (36.0-66.0); PLATELET COUNT, AUTOMATED 316 10^3/uL (150-450); RED BLOOD COUNT 5.07 10^6/uL (4.00-5.40); WHITE BLOOD COUNT 9.2 10^3/uL (4.0-10.0)
[2019-04-01 13:54] LABS: ALBUMIN 4.1 GM/DL (3.2-5.2); ALT/SGPT 25 U/L (12-78); BILIRUBIN,TOTAL 0.4 MG/DL (0.2-1.0); BLOOD UREA NITROGEN 8 MG/DL (7-18); CALCIUM LEVEL 9.9 MG/DL (8.8-10.2); CARBON DIOXIDE LEVEL 31 MEQ/L (21-32); CHLORIDE LEVEL 98 MEQ/L (98-107); CREATININE FOR GFR 0.68 MG/DL (0.55-1.30); GLOMERULAR FILTRATION RATE > 60.0 (>45); GLUCOSE, FASTING 107 MG/DL (70-100); SODIUM LEVEL 137 MEQ/L (136-145); TOTAL PROTEIN 7.2 GM/DL (6.4-8.2)
[2019-04-01 14:32] LABS: HEMOGLOBIN A1c 7.3 %
== END ==
LOC: M LAB 12:09
PROVIDERS: ATTEND Nurse Practitioner Family
DX: Z01.818 Encounter for other preprocedural examination (principal)

== ENCOUNTER → 2019-04-11 | Outpatient (CLI) | payer MEDICARE, MEDICAID ==
[~2019-04-11] MED LIST changes: +CHOL100029 PO; +E-Z-GAS II EFFERVESCENT PACKET (SODIUM BICARB./CITRIC ACID/SIMETHICONE) As Ordered ONE; +E-Z-HD 98% w/w 340GM SUSP BTL As Ordered ONE; +E-Z-PAQUE 96% w/w SUSP 176GM BTL As Ordered ONE; +GABA600T4 PO; +PRED10TA2; +REQU2TAB; +TIZA4TAB4; -VITAD1000T PO
--- NOTE | 2019-04-11 19:42 | REP ---
Examination Requested: Upper G.I. Series With KUB Reason For Exam: Dysphasia Upper GI Air Contrast The procedure was performed by MORIS Ragsdale, under the direct supervision of Dr. Carrion. The images were reviewed with Dr. Carrion. The tallow refiner film shows no organomegaly or pathological masses. The intestinal gas pattern appears normal. Liquid barium and gas producing crystals were given in the erect position as well as liquid barium in the prone oblique position in order to perform a double contrast upper GI examination. The oral and pharyngeal stages of deglutition were unremarkable. Esophageal transport is efficient and there is no esophagitis, stricture, or mucosal ring noted. However tertiary contractions were noted throughout the exam. There there is a small sliding hiatal hernia. Gastroesophageal reflux was visualized to the level of the harmony. The stomach morel are normally outlined. The rugal folds are smooth and regular. There is no gastritis, neoplasm, ulcer disease noted. The duodenal morel are normally outlined. The mucosal folds are smooth and regular. There is no duodenitis, peptic ulcer disease, or neoplasm noted. The visualized portion of the proximal small bowel appears normal in course and caliber. Impression: 1. Small sliding hiatal hernia. 2. Gastroesophageal reflux to the level of the harmony. 3. Tertiary contractions were visualized throughout the exam. 0.7 minutes of fluoroscopy time was utilized for this procedure. Some fluoroscopic images are performed with last image hold technology. These images require no additional radiation. Reviewed by MORIS Whelan 04/11/2019 05:21 P Electronically Signed by Shailesh Carrion MD 04/11/2019 07:33 P
== END ==
LOC: M RAD 08:25
PROVIDERS: ATTEND Surgery
DX: R13.10 Dysphagia, unspecified (principal); K44.9 Diaphragmatic hernia without obstruction or gangrene; K21.9 Gastro-esophageal reflux disease without esophagitis

== ENCOUNTER → 2019-04-15 | Outpatient (CLI) | payer MEDICARE, MEDICAID ==
[~2019-04-15] MED LIST changes: -E-Z-GAS II EFFERVESCENT PACKET (SODIUM BICARB./CITRIC ACID/SIMETHICONE) As Ordered ONE; -E-Z-HD 98% w/w 340GM SUSP BTL As Ordered ONE; -E-Z-PAQUE 96% w/w SUSP 176GM BTL As Ordered ONE
--- NOTE | 2019-04-15 14:44 | REP ---
Low-dose lung screening CT of the chest: Comparison is a 2017. Study is performed without IV contrast. Images are presented at lung windowing only. There is a pleural-based ground-glass density in the left upper lobe on image 31 measuring 2.5 cm in diameter, not present on the comparison study. There are no other lung nodules or masses. There are no infiltrates or effusions. Impression: The 2.5 cm left upper lobe ground-glass density is a category III lesion. Probability of malignancy is 5%. Follow-up low-dose lung screening CT is recommended in 6 months. Electronically Signed by Shailesh Carrion MD 04/15/2019 02:36 P
== END ==
LOC: M RAD 13:20
PROVIDERS: ATTEND Internal Medicine Pulmonary Disease
DX: Z87.891 Personal history of nicotine dependence (principal); R91.8 Other nonspecific abnormal finding of lung field

== ENCOUNTER → 2019-05-02 | Outpatient (CLI) | payer MEDICARE, MEDICAID ==
[~2019-05-02] MED LIST changes: -GABA600T4 PO; -PRED10TA2; -REQU2TAB; -TIZA4TAB4
[2019-05-02 21:03] LABS: HEMATOCRIT 36.9 % (36.0-47.0); MEAN CORPUSCULAR HGB CONC 32.5 g/dl (32.0-36.5); PLATELET COUNT, AUTOMATED 337 10^3/uL (150-450); RED BLOOD COUNT 4.29 10^6/uL (4.00-5.40); WHITE BLOOD COUNT 8.1 10^3/uL (4.0-10.0)
[2019-05-02 21:12] LABS: BLOOD UREA NITROGEN 11 MG/DL (7-18); CALCIUM LEVEL 9.3 MG/DL (8.8-10.2); CARBON DIOXIDE LEVEL 25 MEQ/L (21-32); CHLORIDE LEVEL 102 MEQ/L (98-107); CREATININE FOR GFR 0.68 MG/DL (0.55-1.30); GLOMERULAR FILTRATION RATE > 60.0 (>45); GLUCOSE, FASTING 135 MG/DL (70-100); POTASSIUM SERUM 4.2 MEQ/L (3.5-5.1); SODIUM LEVEL 137 MEQ/L (136-145)
== END ==
LOC: M WUC 15:33
PROVIDERS: ATTEND Family Medicine
DX: Z01.812 Encounter for preprocedural laboratory examination (principal)

== ENCOUNTER → 2019-06-11 | Outpatient (REF) | payer MEDICARE, MEDICAID ==
[2019-06-11 14:12] LABS: ALBUMIN 4.3 GM/DL (3.2-5.2); ALT/SGPT 23 U/L (12-78); BILIRUBIN,TOTAL 0.3 MG/DL (0.2-1.0); BLOOD UREA NITROGEN 8 MG/DL (7-18); CALCIUM LEVEL 9.7 MG/DL (8.8-10.2); CARBON DIOXIDE LEVEL 31 MEQ/L (21-32); CHLORIDE LEVEL 96 MEQ/L (98-107); CHOLESTEROL LEVEL 209 MG/DL (<200); CHOLESTEROL RISK RATIO 3.028 (<5); CREATININE FOR GFR 0.67 MG/DL (0.55-1.30); GLOMERULAR FILTRATION RATE > 60.0 (>45); GLUCOSE, FASTING 104 MG/DL (70-100); HDL CHOLESTEROL 69 MG/DL (>40); LDL CHOLESTEROL 95 MG/DL (<100); NON-HDL-C 140 MG/DL; POTASSIUM SERUM 3.6 MEQ/L (3.5-5.1); SODIUM LEVEL 134 MEQ/L (136-145); TOTAL 25(OH) VITAMIN D 24.4 NG/ML (30.0-100.0); TOTAL PROTEIN 7.8 GM/DL (6.4-8.2); TRIGLYCERIDES LEVEL 227 MG/DL (<150)
[2019-06-11 14:44] LABS: CREATININE, URINE 90.1 MG/DL; MALB URINE SIEMENS 7.5 MG/L; MAU/CREAT RATIO 8.3 MCG/MG (0.0-30.0)
[2019-06-11 14:46] LABS: HEMOGLOBIN A1c 7.5 %
== END ==
LOC: M SFHCPLAZ 10:27
PROVIDERS: ATTEND Nurse Practitioner Adult Health
DX: I10 Essential (primary) hypertension (principal); E78.2 Mixed hyperlipidemia; E11.69 Type 2 diabetes mellitus with other specified complication; E55.9 Vitamin D deficiency, unspecified
CPT/HCPCS: 36415; 80053; 80061; 82043; 82306; 83036; 84443; 90682; G0008

== ENCOUNTER → 2019-06-18 | Outpatient (CLI) | payer MEDICARE, MEDICAID ==
--- NOTE | 2019-06-18 11:21 | REP ---
Clinical: Abnormal lung findings. Technique: Axial noncontrast images from the thoracic inlet to the upper abdomen with coronal and sagittal re-formations. Comparison: 04/15/2019. Findings: The bilateral lung griffiths are well-aerated and clear. The previously noted subtle ground-glass opacity in the periphery of the left upper lobe has resolved. No acute consolidation, significant nodule or mass lesion. No pleural effusion. Tracheobronchial tree is patent. No adenopathy. Mediastinum demonstrates normal caliber aorta without aneurysm. No cardiomegaly or pericardial effusion. Surrounding musculoskeletal structures demonstrate sternotomy and prior anterior cervical fusion. Impression: 1. Normal noncontrast chest CT. 2. Previously noted ground-glass opacity in the left upper lobe has resolved. Electronically Signed by Maverick Olmedo MD 06/18/2019 11:12 A
== END ==
LOC: M RAD 10:46
PROVIDERS: ATTEND Internal Medicine Pulmonary Disease
DX: R91.8 Other nonspecific abnormal finding of lung field (principal)

== ENCOUNTER 2019-07-25 09:03 | Emergency (ER) | payer MEDICARE, MEDICAID ==
[~2019-07-25] VITALS: Ht 165.1 cm; Wt 68.4 kg
[2019-07-25] MEDS ORDERED: PRED10TA2 (09:20)
[2019-07-25] MEDS ORDERED: TIZA4TAB4 (09:20)
[2019-07-25] MEDS ORDERED: GABA600T4 PO (09:20)
[2019-07-25] MEDS ORDERED: REQU2TAB (09:20)
[2019-07-25 09:54] LABS: BASO % 0.4 % (0.0-1.0); EOS # 0.1 10^3/uL (0.0-0.5); HEMATOCRIT 38.8 % (36.0-47.0); HEMOGLOBIN 12.7 g/dl (12.0-15.5); LYMPH # 1.9 10^3/uL (1.5-5.0); LYMPH % 24.1 % (24.0-44.0); MEAN CORPUSCULAR HEMOGLOBIN 28.4 pg (27.0-33.0); MEAN CORPUSCULAR HGB CONC 32.7 g/dl (32.0-36.5); MEAN CORPUSCULAR VOLUME 86.8 fl (80.0-96.0); MONO # 0.8 10^3/uL (0.0-0.8); NEUTROPHILS # 4.9 10^3/uL (1.5-8.5); NEUTROPHILS % 63.3 % (36.0-66.0); PLATELET COUNT, AUTOMATED 272 10^3/uL (150-450); RED BLOOD COUNT 4.47 10^6/uL (4.00-5.40); WHITE BLOOD COUNT 7.8 10^3/uL (4.0-10.0)
[2019-07-25] MEDS ORDERED: NS 500 ML IV ONE (10:15)
[2019-07-25] MEDS ORDERED: PERCOCET 5MG/325MG TAB PO ONE (10:15)
[2019-07-25 10:29] LABS: BLOOD UREA NITROGEN 16 MG/DL (7-18); CALCIUM LEVEL 9.4 MG/DL (8.8-10.2); CARBON DIOXIDE LEVEL 31 MEQ/L (21-32); CHLORIDE LEVEL 100 MEQ/L (98-107); CK-MB VALUE MASS 1.9 NG/ML (<3.6); CPK CREATINE PHOSPHOKINASE 83 U/L (26-192); CREATININE FOR GFR 0.76 MG/DL (0.55-1.30); GLOMERULAR FILTRATION RATE > 60.0 (>45); GLUCOSE, FASTING 91 MG/DL (70-100); MB/CK RELATIVE INDEX 2.29 (< OR =4); POTASSIUM SERUM 3.3 MEQ/L (3.5-5.1); SODIUM LEVEL 138 MEQ/L (136-145); TROPONIN I < 0.02 NG/ML (< 0.10)
[2019-07-25] MEDS ORDERED: METOPROLOL TART 25 MG TABLET PO ONE (10:45)
[2019-07-25] MEDS ORDERED: hydroCHLOROthiazide 12.5 MG CAPSULE PO ONE (10:45)
[2019-07-25] MEDS ORDERED: diphenhydrAMINE INJ 50MG/ML VIAL (J1200) IV ONE (11:45)
[2019-07-25] MEDS ORDERED: KETOROLAC 30 MG/ML VIAL (J1885) IV ONE (11:45)
[2019-07-25] MEDS ORDERED: METOCLOPRAMIDE INJ 10MG/2ML VIAL (J2765) IV ONE (11:45)
--- NOTE | 2019-07-25 12:07 | REP ---
Clinical: Headache . Comparison: 06/25/2018 Findings: Age-related atrophy with periventricular leukomalacia and microvascular ischemic changes are appreciated. The ventricles and sulci are symmetric. Tinoco-white differentiation is maintained. There is no evidence for acute intracranial hemorrhage, mass/mass effect, pathology or infarction. No extra-axial fluid collection. Calvarium is intact. Paranasal sinuses and mastoid air cells are clear. Impression: Age related atrophy and microvascular ischemic changes. No acute intracranial hemorrhage, infarction, or mass/mass effect. Electronically Signed by Maverick Olmedo MD 07/25/2019 12:00 P
[2019-07-25] MEDS ORDERED: rOPINIRole 2MG TAB PO STA (12:49)
[2019-07-25] MEDS ORDERED: PROPARACAINE 0.5% OPHTH SOL 15ML XX ONE (13:15)
--- NOTE | 2019-07-25 14:36 | REP ---
CHEST, SINGLE VIEW: There is no evidence of acute infiltrate. No pleural effusion is seen. The heart is normal in size. The mediastinal silhouette is unremarkable. The visualized osseous structures are intact. Multiple sternal wires are present. IMPRESSION: No acute pulmonary disease. Electronically Signed by Shailesh Tinoco MD 07/25/2019 03:55 P
[2019-07-25] MEDS ORDERED: LABETALOL HCL 100 MG/20 ML VIAL IV STA (14:53)
[2019-07-25] MEDS ORDERED: hydrALAZINE INJ 20 MG/ML VIAL IV STA (15:40)
[2019-07-25 15:50] VITALS: BP 230/122
[2019-07-25 16:01] VITALS: BP 179/84
--- NOTE | 2019-07-25 20:03 | ECGEPIP ---
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
== END 2019-07-25 16:33 | disposition home or self-care (01) ==
LOC: M ED 09:03
DX: I10 Essential (primary) hypertension (principal); F41.1 Generalized anxiety disorder; I45.10 Unspecified right bundle-branch block; E11.9 Type 2 diabetes mellitus without complications; J44.9 Chronic obstructive pulmonary disease, unspecified; E78.5 Hyperlipidemia, unspecified; I25.2 Old myocardial infarction; Z95.1 Presence of aortocoronary bypass graft; Z95.5 Presence of coronary angioplasty implant and graft; Z79.899 Other long term (current) drug therapy; Z79.82 Long term (current) use of aspirin; Z79.84 Long term (current) use of oral hypoglycemic drugs; Z87.891 Personal history of nicotine dependence
CPT/HCPCS: 36415; 70450; 71045; 80048; 81001; 82550; 82553; 84484; 85025; 93005; 93041; 94760; 96374; 96375; 99291; J1200; J1885; J2765

== ENCOUNTER → 2019-08-29 | Outpatient (CLI) | payer MEDICARE, MEDICAID ==
[~2019-08-29] MED LIST changes: +GABA600T4 PO; +PRED10TA2; +REQU2TAB; +TIZA4TAB4
[2019-08-29 12:42] LABS: BLOOD UREA NITROGEN 10 MG/DL (7-18); CALCIUM LEVEL 9.1 MG/DL (8.8-10.2); CARBON DIOXIDE LEVEL 28 MEQ/L (21-32); CHLORIDE LEVEL 101 MEQ/L (98-107); CREATININE FOR GFR 0.88 MG/DL (0.55-1.30); GLOMERULAR FILTRATION RATE > 60.0 (>45); GLUCOSE, FASTING 202 MG/DL (70-100); POTASSIUM SERUM 4.5 MEQ/L (3.5-5.1); SODIUM LEVEL 135 MEQ/L (136-145)
== END ==
LOC: M LAB 11:29
PROVIDERS: ATTEND Nurse Practitioner Family
DX: I10 Essential (primary) hypertension (principal)

== ENCOUNTER → 2019-10-30 | Outpatient (REF) | payer MEDICARE ==
[2019-10-30 16:10] LABS: ALBUMIN 4.1 GM/DL (3.2-5.2); ALT/SGPT 31 U/L (12-78); AMYLASE 31 U/L (25-115); BILIRUBIN,TOTAL 0.4 MG/DL (0.2-1.0); BLOOD UREA NITROGEN 11 MG/DL (7-18); CALCIUM LEVEL 9.8 MG/DL (8.8-10.2); CARBON DIOXIDE LEVEL 27 MEQ/L (21-32); CHLORIDE LEVEL 96 MEQ/L (98-107); CREATININE FOR GFR 0.66 MG/DL (0.55-1.30); GLOMERULAR FILTRATION RATE > 60.0 (>45); GLUCOSE, FASTING 103 MG/DL (70-100); LIPASE 82 U/L (73-393); POTASSIUM SERUM 4.8 MEQ/L (3.5-5.1); SODIUM LEVEL 131 MEQ/L (136-145); TOTAL PROTEIN 7.5 GM/DL (6.4-8.2)
== END ==
LOC: M SFHCPLAZ 12:27
PROVIDERS: ATTEND Nurse Practitioner Adult Health
DX: R68.89 Other general symptoms and signs (principal); Z87.19 Personal history of other diseases of the digestive system
CPT/HCPCS: 80053; 82150; 83690; 87804; G0463

== ENCOUNTER → 2019-11-11 | Outpatient (CLI) | payer MEDICARE ==
[2019-11-11 13:57] LABS: BASO % 0.3 % (0.0-1.0); EOS # 0.1 10^3/uL (0.0-0.5); EOS % 1.4 % (0.0-3.0); HEMATOCRIT 39.1 % (36.0-47.0); HEMOGLOBIN 12.7 g/dl (12.0-15.5); LYMPH # 3.2 10^3/uL (1.5-5.0); LYMPH % 33.8 % (24.0-44.0); MEAN CORPUSCULAR HEMOGLOBIN 27.7 pg (27.0-33.0); MEAN CORPUSCULAR HGB CONC 32.5 g/dl (32.0-36.5); MEAN CORPUSCULAR VOLUME 85.4 fl (80.0-96.0); MONO # 0.7 10^3/uL (0.0-0.8); MONO % 7.5 % (0.0-5.0); NEUTROPHILS # 5.3 10^3/uL (1.5-8.5); NEUTROPHILS % 56.4 % (36.0-66.0); PLATELET COUNT, AUTOMATED 331 10^3/uL (150-450); RED BLOOD COUNT 4.58 10^6/uL (4.00-5.40); WHITE BLOOD COUNT 9.4 10^3/uL (4.0-10.0)
[2019-11-11 14:44] LABS: BLOOD UREA NITROGEN 15 MG/DL (7-18); CALCIUM LEVEL 9.4 MG/DL (8.8-10.2); CARBON DIOXIDE LEVEL 29 MEQ/L (21-32); CHLORIDE LEVEL 96 MEQ/L (98-107); CREATININE FOR GFR 0.65 MG/DL (0.55-1.30); GLOMERULAR FILTRATION RATE > 60.0 (>45); GLUCOSE, FASTING 98 MG/DL (70-100); POTASSIUM SERUM 4.1 MEQ/L (3.5-5.1); SODIUM LEVEL 132 MEQ/L (136-145); TROPONIN I < 0.02 NG/ML (< 0.10)
== END ==
LOC: M PLALAB 11:14
PROVIDERS: ATTEND Nurse Practitioner Family
DX: R07.9 Chest pain, unspecified (principal); Z95.1 Presence of aortocoronary bypass graft

== ENCOUNTER 2019-12-28 13:36 | Emergency (ER) | payer MEDICARE, MEDICAID ==
[~2019-12-28] VITALS: Ht 165.1 cm; Wt 51.4 kg
[~2019-12-28 13:36] MED LIST changes: +CYCL-707 PO; -CYCL10TA PO
[2019-12-28] MEDS ORDERED: SULF1TAB93 PO (14:00)
[2019-12-28] MEDS ORDERED: MORPHINE 4 MG/ML 1ML VIAL/SYRINGE (J2270) IV ONE (14:30)
[2019-12-28] MEDS ORDERED: NS 1,000 ML IV ONE (14:30)
[2019-12-28 14:55] LABS: BASO # 0.1 10^3/uL (0.0-0.2); BASO % 0.4 % (0.0-1.0); EOS # 0.1 10^3/uL (0.0-0.5); EOS % 1.1 % (0.0-3.0); HEMATOCRIT 35.1 % (36.0-47.0); HEMOGLOBIN 11.8 g/dl (12.0-15.5); LYMPH # 2.4 10^3/uL (1.5-5.0); LYMPH % 20.2 % (24.0-44.0); MEAN CORPUSCULAR HEMOGLOBIN 29.1 pg (27.0-33.0); MEAN CORPUSCULAR HGB CONC 33.6 g/dl (32.0-36.5); MEAN CORPUSCULAR VOLUME 86.5 fl (80.0-96.0); MONO # 0.9 10^3/uL (0.0-0.8); MONO % 7.4 % (0.0-5.0); NEUTROPHILS # 8.3 10^3/uL (1.5-8.5); NEUTROPHILS % 70.2 % (36.0-66.0); PLATELET COUNT, AUTOMATED 281 10^3/uL (150-450); RED BLOOD COUNT 4.06 10^6/uL (4.00-5.40); WHITE BLOOD COUNT 11.8 10^3/uL (4.0-10.0)
[2019-12-28 15:13] LABS: ERYTHROCYTE SEDIMENTATION RATE 58 mm/hr (0-30)
[2019-12-28] MEDS ORDERED: ceFAZolin SOD 1 GM in D5W MINI-BAG PLUS 50 ML IV ONE (15:45)
[2019-12-28 15:56] VITALS: BP 120/69
[2019-12-28] MEDS ORDERED: KEFL500C17 PO (16:55)
--- NOTE | 2019-12-28 22:49 | REP ---
REASON FOR EXAM: Assess for abscess in the soft tissues of the dorsum of the left hand. Multiple ultrasonographic images were obtained. There is no evidence of an abscess ultrasonographically. Electronically Signed by Lupillo Sanchez DO 12/29/2019 08:26 A
== END 2019-12-28 17:08 | disposition home or self-care (01) ==
LOC: M ED 13:36
DX: L03.114 Cellulitis of left upper limb (principal); S61.432A Puncture wound without foreign body of left hand, initial encounter; W26.8XXA Contact with other sharp object(s), not elsewhere classified, initial encounter; Y92.098 Other place in other non-institutional residence as the place of occurrence of the external cause; I10 Essential (primary) hypertension; E78.00 Pure hypercholesterolemia, unspecified; J45.909 Unspecified asthma, uncomplicated; F44.9 Dissociative and conversion disorder, unspecified; G47.33 Obstructive sleep apnea (adult) (pediatric); K21.9 Gastro-esophageal reflux disease without esophagitis; E11.9 Type 2 diabetes mellitus without complications; M54.9 Dorsalgia, unspecified; F32.9 Major depressive disorder, single episode, unspecified; Z79.899 Other long term (current) drug therapy; Z79.84 Long term (current) use of oral hypoglycemic drugs; Z79.82 Long term (current) use of aspirin; Z79.2 Long term (current) use of antibiotics
CPT/HCPCS: 76882; 80047; 85025; 85652; 86140; 87040; 87070; 87077; 87186; 87205; 96365; 96375; 99284; J0690; J2270

== ENCOUNTER → 2020-03-09 | Outpatient (REF) | payer MEDICARE ==
[~2020-03-09] MED LIST changes: +KEFL500C17 PO; +SULF1TAB93 PO
[2020-03-09 15:47] LABS: HEMOGLOBIN A1c 6.9 %
[2020-03-09 16:00] LABS: ALBUMIN 4.2 GM/DL (3.2-5.2); ALT/SGPT 24 U/L (12-78); AMYLASE 28 U/L (25-115); BILIRUBIN,TOTAL 0.4 MG/DL (0.2-1.0); BLOOD UREA NITROGEN 8 MG/DL (7-18); CALCIUM LEVEL 9.5 MG/DL (8.8-10.2); CARBON DIOXIDE LEVEL 32 MEQ/L (21-32); CHLORIDE LEVEL 99 MEQ/L (98-107); CREATININE FOR GFR 0.63 MG/DL (0.55-1.30); GLOMERULAR FILTRATION RATE > 60.0 (>45); GLUCOSE, FASTING 99 MG/DL (70-100); LIPASE 66 U/L (73-393); POTASSIUM SERUM 4.3 MEQ/L (3.5-5.1); SODIUM LEVEL 133 MEQ/L (136-145); THYROID STIMULATING HORMONE 0.844 uIU/ML (0.358-3.740); TOTAL 25(OH) VITAMIN D 23.1 NG/ML (30.0-100.0); TOTAL PROTEIN 7.2 GM/DL (6.4-8.2)
[2020-03-09 19:29] LABS: CREATININE, URINE 46.5 MG/DL; MALB URINE SIEMENS 5.6 MG/L
== END ==
LOC: M SFHCPLAZ 13:56
PROVIDERS: ATTEND Nurse Practitioner Adult Health
DX: E11.69 Type 2 diabetes mellitus with other specified complication (principal); E55.9 Vitamin D deficiency, unspecified; Z87.19 Personal history of other diseases of the digestive system

== ENCOUNTER 2020-03-29 13:50 | Inpatient (IN) | payer MEDICARE, MEDICAID ==
[~2020-03-29 13:50] MED LIST changes: +AMLO1TAB24 PO; -AMLO5TAB6 PO; -ASPI81TA85 PO; +ASPI81TA86 PO; +IPRATROPIUM 0.5MG/ALBUTEROL 2.5MG INH SOL UD 3ML (DUONEB) ONE
[2020-03-29] MEDS ORDERED: MORPHINE 4 MG/ML 1ML VIAL/SYRINGE (J2270) As Ordered ONE ×2 (14:38→18:57)
[2020-03-29] MEDS ORDERED: MORPHINE 4 MG/ML 1ML VIAL/SYRINGE (J2270) ONE ×2 (14:38→18:57)
[2020-03-29] MEDS ORDERED: PERCOCET 5MG/325MG TAB As Ordered ONE (15:30)
[2020-03-29] MEDS ORDERED: PERCOCET 5MG/325MG TAB ONE (15:30)
[2020-03-29] MEDS ORDERED: NORCO, ANEXSIA 5/325MG TABLET (HYDROcodone/ACETAMINOPHEN) ONE (21:44)
[2020-03-29] MEDS ORDERED: CYCLOBENZAPRINE 5MG TABLET ONE (21:44)
[2020-03-29] MEDS ORDERED: methylPREDNISolone 125MG 2ML VIAL ONE (21:44)
[2020-03-29] MEDS ORDERED: CYCLOBENZAPRINE 5MG TABLET As Ordered ONE (21:44)
[2020-03-29] MEDS ORDERED: methylPREDNISolone 125MG 2ML VIAL As Ordered ONE (21:45)
[2020-03-29] MEDS ORDERED: NORCO, ANEXSIA 5/325MG TABLET (HYDROcodone/ACETAMINOPHEN) As Ordered ONE (21:45)
[2020-03-30] MEDS ORDERED: rOPINIRole 1MG TAB ONE ×2 (01:45→20:13)
[2020-03-30] MEDS ORDERED: NORCO, ANEXSIA 5/325MG TABLET (HYDROcodone/ACETAMINOPHEN) ONE ×4 (01:45→18:05)
[2020-03-30] MEDS ORDERED: NORCO, ANEXSIA 5/325MG TABLET (HYDROcodone/ACETAMINOPHEN) As Ordered ONE ×3 (01:45→18:05)
[2020-03-30] MEDS ORDERED: SENNA 8.6 MG TAB (SENOKOT) ONE (01:45)
[2020-03-30] MEDS ORDERED: rOPINIRole 1MG TAB As Ordered ONE ×2 (02:24→20:14)
[2020-03-30] MEDS ORDERED: SENNA 8.6 MG TAB (SENOKOT) As Ordered ONE (02:24)
[2020-03-30] MEDS ORDERED: CYCLOBENZAPRINE 10MG TABLET ONE (08:34)
[2020-03-30] MEDS ORDERED: PANTOPRAZOLE 20 MG TAB ONE (08:34)
[2020-03-30] MEDS ORDERED: GABAPENTIN 300 MG CAP ONE ×2 (08:34→20:13)
[2020-03-30] MEDS ORDERED: HumaLOG INSULIN (NovoLOG) PER UNIT ONE ×3 (08:34→14:23)
[2020-03-30] MEDS ORDERED: SENOKOT S TAB ONE ×2 (08:34→20:13)
[2020-03-30] MEDS ORDERED: LOSARTAN 50MG TABLET ONE (08:34)
[2020-03-30] MEDS ORDERED: hydroCHLOROthiazide 12.5 MG CAPSULE ONE (08:34)
[2020-03-30] MEDS ORDERED: ENOXAPARIN 40MG/0.4ML SYRINGE (J1650 PER 10MG) ONE (08:34)
[2020-03-30] MEDS ORDERED: SPIRONOLACTONE 25 MG TAB ONE (08:34)
[2020-03-30] MEDS ORDERED: ASPIRIN 81 MG ENTERIC TAB ONE (08:34)
[2020-03-30] MEDS ORDERED: SENOKOT S TAB As Ordered ONE ×2 (08:34→20:14)
[2020-03-30] MEDS ORDERED: PANTOPRAZOLE 20 MG TAB As Ordered ONE (08:35)
[2020-03-30] MEDS ORDERED: SPIRONOLACTONE 25 MG TAB As Ordered ONE (08:35)
[2020-03-30] MEDS ORDERED: GABAPENTIN 300 MG CAP As Ordered ONE ×2 (08:35→20:13)
[2020-03-30] MEDS ORDERED: hydroCHLOROthiazide 12.5 MG CAPSULE As Ordered ONE (08:35)
[2020-03-30] MEDS ORDERED: CYCLOBENZAPRINE 10MG TABLET As Ordered ONE (08:35)
[2020-03-30] MEDS ORDERED: LOSARTAN 50MG TABLET As Ordered ONE (08:35)
[2020-03-30] MEDS ORDERED: ENOXAPARIN 40MG/0.4ML SYRINGE (J1650 PER 10MG) As Ordered ONE (08:36)
[2020-03-30] MEDS ORDERED: ASPIRIN 81 MG ENTERIC TAB As Ordered ONE (08:36)
[2020-03-30] MEDS ORDERED: HumaLOG INSULIN (NovoLOG) PER UNIT As Ordered ONE ×2 (08:37→13:14)
[2020-03-30] MEDS ORDERED: IPRATROPIUM 0.5MG/ALBUTEROL 2.5MG INH SOL UD 3ML (DUONEB) ONE (10:00)
[2020-03-30] MEDS ORDERED: DICLOFENAC EPOLAMINE 1.3 % PATCH ONE (10:00)
[2020-03-30] MEDS ORDERED: METOPROLOL SUCC *XL* 25MG TAB (TopROL *XL*) ONE (11:13)
[2020-03-30] MEDS ORDERED: ATORVASTATIN 20 MG TAB ONE (11:13)
[2020-03-30] MEDS ORDERED: METOPROLOL SUCC *XL* 25MG TAB (TopROL *XL*) As Ordered ONE (11:14)
[2020-03-30] MEDS ORDERED: ATORVASTATIN 20 MG TAB As Ordered ONE (11:14)
[2020-03-30] MEDS ORDERED: CYCLOBENZAPRINE 5MG TABLET ONE (20:13)
[2020-03-30] MEDS ORDERED: CYCLOBENZAPRINE 5MG TABLET As Ordered ONE (20:14)
[2020-03-31] MEDS ORDERED: NORCO, ANEXSIA 5/325MG TABLET (HYDROcodone/ACETAMINOPHEN) As Ordered ONE ×3 (04:13→13:43)
[2020-03-31] MEDS ORDERED: NORCO, ANEXSIA 5/325MG TABLET (HYDROcodone/ACETAMINOPHEN) ONE ×3 (04:13→13:43)
[2020-03-31] MEDS ORDERED: SPIRONOLACTONE 25 MG TAB ONE (08:01)
[2020-03-31] MEDS ORDERED: ATORVASTATIN 20 MG TAB As Ordered ONE (08:01)
[2020-03-31] MEDS ORDERED: PANTOPRAZOLE 40MG TAB (PROTONIX) ONE (08:01)
[2020-03-31] MEDS ORDERED: SENOKOT S TAB ONE ×2 (08:01→19:10)
[2020-03-31] MEDS ORDERED: ASPIRIN 81 MG ENTERIC TAB ONE (08:01)
[2020-03-31] MEDS ORDERED: CYCLOBENZAPRINE 5MG TABLET ONE ×2 (08:01→19:10)
[2020-03-31] MEDS ORDERED: METOPROLOL SUCC *XL* 25MG TAB (TopROL *XL*) ONE (08:01)
[2020-03-31] MEDS ORDERED: SPIRONOLACTONE 12.5MG PER 1/2 TABLET As Ordered ONE (08:01)
[2020-03-31] MEDS ORDERED: ENOXAPARIN 40MG/0.4ML SYRINGE (J1650 PER 10MG) ONE (08:01)
[2020-03-31] MEDS ORDERED: LOSARTAN 50MG TABLET ONE (08:01)
[2020-03-31] MEDS ORDERED: HumaLOG INSULIN (NovoLOG) PER UNIT ONE ×3 (08:01→17:24)
[2020-03-31] MEDS ORDERED: hydroCHLOROthiazide 12.5 MG CAPSULE ONE (08:01)
[2020-03-31] MEDS ORDERED: SPIRONOLACTONE 12.5MG PER 1/2 TABLET ONE (08:01)
[2020-03-31] MEDS ORDERED: LIDOCAINE 5% (LIDODERM) PATCH ONE (08:01)
[2020-03-31] MEDS ORDERED: GABAPENTIN 300 MG CAP ONE ×3 (08:01→19:10)
[2020-03-31] MEDS ORDERED: ATORVASTATIN 20 MG TAB ONE (08:01)
[2020-03-31] MEDS ORDERED: HumaLOG INSULIN (NovoLOG) PER UNIT As Ordered ONE ×3 (08:02→17:24)
[2020-03-31] MEDS ORDERED: LOSARTAN 50MG TABLET As Ordered ONE (08:03)
[2020-03-31] MEDS ORDERED: PANTOPRAZOLE 40MG TAB (PROTONIX) As Ordered ONE (08:03)
[2020-03-31] MEDS ORDERED: SENOKOT S TAB As Ordered ONE ×2 (08:03→21:14)
[2020-03-31] MEDS ORDERED: GABAPENTIN 300 MG CAP As Ordered ONE ×3 (08:03→21:10)
[2020-03-31] MEDS ORDERED: METOPROLOL SUCC *XL* 25MG TAB (TopROL *XL*) As Ordered ONE (08:04)
[2020-03-31] MEDS ORDERED: ASPIRIN 81 MG ENTERIC TAB As Ordered ONE (08:04)
[2020-03-31] MEDS ORDERED: CYCLOBENZAPRINE 5MG TABLET As Ordered ONE ×2 (08:04→21:11)
[2020-03-31] MEDS ORDERED: ENOXAPARIN 40MG/0.4ML SYRINGE (J1650 PER 10MG) As Ordered ONE (08:04)
[2020-03-31] MEDS ORDERED: hydroCHLOROthiazide 12.5 MG CAPSULE As Ordered ONE (08:04)
[2020-03-31] MEDS ORDERED: LIDOCAINE 5% (LIDODERM) PATCH As Ordered ONE (08:05)
[2020-03-31] MEDS ORDERED: IPRATROPIUM 0.5MG/ALBUTEROL 2.5MG INH SOL UD 3ML (DUONEB) ONE (10:00)
[2020-03-31] MEDS ORDERED: DICLOFENAC EPOLAMINE 1.3 % PATCH ONE (13:00)
[2020-03-31] MEDS ORDERED: traMADol 50 MG TAB As Ordered ONE ×2 (15:35→21:11)
[2020-03-31] MEDS ORDERED: BISACODYL 10 MG SUPP ONE (15:35)
[2020-03-31] MEDS ORDERED: MAALOX 30 ML SUSP *UDC ONE (15:35)
[2020-03-31] MEDS ORDERED: LORATADINE 10 MG TAB As Ordered ONE (15:35)
[2020-03-31] MEDS ORDERED: LORATADINE 10 MG TAB ONE (15:35)
[2020-03-31] MEDS ORDERED: traMADol 50 MG TAB ONE ×2 (15:35→19:10)
[2020-03-31] MEDS ORDERED: BISACODYL 10 MG SUPP As Ordered ONE (15:35)
[2020-03-31] MEDS ORDERED: MAALOX 30 ML SUSP *UDC As Ordered ONE (15:36)
[2020-03-31] MEDS ORDERED: BISACODYL 5 MG TAB ONE (19:10)
[2020-03-31] MEDS ORDERED: rOPINIRole 1MG TAB ONE (19:10)
[2020-03-31] MEDS ORDERED: rOPINIRole 1MG TAB As Ordered ONE (21:11)
[2020-03-31] MEDS ORDERED: BISACODYL 5 MG TAB As Ordered ONE (21:12)
[2020-04-01] MEDS ORDERED: NORCO, ANEXSIA 5/325MG TABLET (HYDROcodone/ACETAMINOPHEN) As Ordered ONE ×2 (05:39→14:05)
[2020-04-01] MEDS ORDERED: NORCO, ANEXSIA 5/325MG TABLET (HYDROcodone/ACETAMINOPHEN) ONE ×2 (05:39→14:05)
[2020-04-01] MEDS ORDERED: ENOXAPARIN 40MG/0.4ML SYRINGE (J1650 PER 10MG) ONE (07:45)
[2020-04-01] MEDS ORDERED: LIDOCAINE 5% (LIDODERM) PATCH ONE ×2 (07:45)
[2020-04-01] MEDS ORDERED: diphenhydrAMINE 25MG CAP ONE (07:45)
[2020-04-01] MEDS ORDERED: hydroCHLOROthiazide 12.5 MG CAPSULE ONE (07:45)
[2020-04-01] MEDS ORDERED: GABAPENTIN 300 MG CAP ONE (07:45)
[2020-04-01] MEDS ORDERED: PANTOPRAZOLE 40MG TAB (PROTONIX) ONE (07:45)
[2020-04-01] MEDS ORDERED: SPIRONOLACTONE 12.5MG PER 1/2 TABLET As Ordered ONE (07:45)
[2020-04-01] MEDS ORDERED: LOSARTAN 50MG TABLET ONE (07:45)
[2020-04-01] MEDS ORDERED: ATORVASTATIN 20 MG TAB ONE (07:45)
[2020-04-01] MEDS ORDERED: LORATADINE 10 MG TAB ONE (07:45)
[2020-04-01] MEDS ORDERED: ASPIRIN 81 MG ENTERIC TAB ONE (07:45)
[2020-04-01] MEDS ORDERED: SPIRONOLACTONE 12.5MG PER 1/2 TABLET ONE (07:45)
[2020-04-01] MEDS ORDERED: traMADol 50 MG TAB ONE (07:45)
[2020-04-01] MEDS ORDERED: CYCLOBENZAPRINE 5MG TABLET ONE (07:45)
[2020-04-01] MEDS ORDERED: SENOKOT S TAB ONE (07:45)
[2020-04-01] MEDS ORDERED: HumaLOG INSULIN (NovoLOG) PER UNIT ONE ×2 (07:45→12:05)
[2020-04-01] MEDS ORDERED: METOPROLOL SUCC *XL* 25MG TAB (TopROL *XL*) ONE (07:45)
[2020-04-01] MEDS ORDERED: ATORVASTATIN 20 MG TAB As Ordered ONE (07:45)
[2020-04-01] MEDS ORDERED: BISACODYL 5 MG TAB ONE (07:45)
[2020-04-01] MEDS ORDERED: GABAPENTIN 300 MG CAP As Ordered ONE (07:46)
[2020-04-01] MEDS ORDERED: HumaLOG INSULIN (NovoLOG) PER UNIT As Ordered ONE ×2 (07:46→12:05)
[2020-04-01] MEDS ORDERED: PANTOPRAZOLE 40MG TAB (PROTONIX) As Ordered ONE (07:46)
[2020-04-01] MEDS ORDERED: SENOKOT S TAB As Ordered ONE (07:47)
[2020-04-01] MEDS ORDERED: hydroCHLOROthiazide 12.5 MG CAPSULE As Ordered ONE (07:47)
[2020-04-01] MEDS ORDERED: LOSARTAN 50MG TABLET As Ordered ONE (07:47)
[2020-04-01] MEDS ORDERED: METOPROLOL SUCC *XL* 25MG TAB (TopROL *XL*) As Ordered ONE (07:48)
[2020-04-01] MEDS ORDERED: LORATADINE 10 MG TAB As Ordered ONE (07:48)
[2020-04-01] MEDS ORDERED: CYCLOBENZAPRINE 5MG TABLET As Ordered ONE (07:48)
[2020-04-01] MEDS ORDERED: ASPIRIN 81 MG ENTERIC TAB As Ordered ONE (07:48)
[2020-04-01] MEDS ORDERED: traMADol 50 MG TAB As Ordered ONE (07:49)
[2020-04-01] MEDS ORDERED: LIDOCAINE 5% (LIDODERM) PATCH As Ordered ONE ×2 (07:49→08:08)
[2020-04-01] MEDS ORDERED: BISACODYL 5 MG TAB As Ordered ONE (07:49)
[2020-04-01] MEDS ORDERED: ENOXAPARIN 40MG/0.4ML SYRINGE (J1650 PER 10MG) As Ordered ONE (07:49)
[2020-04-01] MEDS ORDERED: diphenhydrAMINE 25MG CAP As Ordered ONE (07:50)
[2020-04-01] MEDS ORDERED: diphenhydrAMINE CREAM 30GM ONE (09:00)
[2020-04-01] MEDS ORDERED: IPRATROPIUM 0.5MG/ALBUTEROL 2.5MG INH SOL UD 3ML (DUONEB) ONE (10:00)
--- NOTE | 2020-04-23 07:57 | CR ---
DATE: 03/30/2020 REASON FOR CONSULTATION: T12 compression fracture. HISTORY OF PRESENT ILLNESS: This 64-year-old female was seen on the pereyra at [address] She had sustained a fall down three steps while at home. These were concrete steps. She has had a previous history of cervical spine fusion and apparently a lumbar spine fracture treated nonoperatively many years ago. She has ongoing decreased sensation to her hands and feet normally. She denies loss of consciousness or head injury. She was admitted under the hospitalist service. CT scan revealed a T12 compression fracture without canal compromise. PAST MEDICAL HISTORY: Includes triple bypass, type 2 diabetes, dyslipidemia, and hypertension. PAST SURGICAL HISTORY: Cervical spine fusion many years ago. MEDICATIONS: Unsure what medications she is on. SOCIAL HISTORY: She lives in [place]. She lives with her boyfriend. She does not smoke or drink alcohol. She does not use ambulatory aids, but she has a cane and a walker. PHYSICAL EXAMINATION: A 64-year-old female laying supine in bed. She is able to sit up and rollover. No steps or gallops in her cervical, thoracic, or lumbar spine. There is pain to palpation near T12 in her lumbar spine. Normal sensation aside from below the elbows and below the knees subjectively. She is able to hold her legs out straight and flex the hips. Strength in the lower extremities L2 and L3 both 5/5. In terms of her toes, she is able to wiggle her toes. Dorsiflex and plantarflex the foot, but these are weak and I would rate them as a 4/5. Plantars are downgoing. Reflexes are non-hyperreflexic at the knees and ankles. No clonus. Feet are warm and well-perfused. IMAGING STUDIES: CT scan was reviewed of her cervical, thoracic, and lumbar spine. Unfortunately, there is no report. Per my interpretation and oral report from the emergency department physician on at the time, this showed a T12 compression fracture. I agree with this assessment. There is no obvious canal compromise. This is mild. Height loss 25% approximately. No spondylolisthesis or spondylolysis. The lower cervical spine fusion appears intact with adjacent segment degeneration. ASSESSMENT AND PLAN: This 64-year-old female has a mild T12 compression fracture. I recommend non-surgical management, rest, ice, pain control, possible consultation with the pain service, brace, weightbearing as tolerated, and physical therapy (PT) and occupational therapy (OT) assessment. She can follow up in the clinic. ALISSA
--- NOTE | 2020-05-04 09:22 | ECGEPIP ---
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
[2020-05-13 10:19] LABS: BASO % 0.3 % (0.0-1.0); EOS # 0.1 10^3/uL (0.0-0.5); EOS % 0.9 % (0.0-3.0); HEMATOCRIT 42.2 % (36.0-47.0); HEMOGLOBIN 14.1 g/dl (12.0-15.5); LYMPH # 2.6 10^3/uL (1.5-5.0); LYMPH % 34.4 % (24.0-44.0); MEAN CORPUSCULAR HEMOGLOBIN 27.9 pg (27.0-33.0); MEAN CORPUSCULAR HGB CONC 33.4 g/dl (32.0-36.5); MEAN CORPUSCULAR VOLUME 83.6 fl (80.0-96.0); MONO # 0.5 10^3/uL (0.0-0.8); MONO % 6.2 % (0.0-5.0); NEUTROPHILS # 4.4 10^3/uL (1.5-8.5); NEUTROPHILS % 57.5 % (36.0-66.0); PLATELET COUNT, AUTOMATED 269 10^3/uL (150-450); RED BLOOD COUNT 5.05 10^6/uL (4.00-5.40); WHITE BLOOD COUNT 7.6 10^3/uL (4.0-10.0)
[2020-05-20 07:16] LABS: HEMATOCRIT 42.1 % (36.0-47.0); MEAN CORPUSCULAR HEMOGLOBIN 27.6 pg (27.0-33.0); MEAN CORPUSCULAR HGB CONC 33.3 g/dl (32.0-36.5); MEAN CORPUSCULAR VOLUME 82.9 fl (80.0-96.0); PLATELET COUNT, AUTOMATED 271 10^3/uL (150-450); RED BLOOD COUNT 5.08 10^6/uL (4.00-5.40); WHITE BLOOD COUNT 6.7 10^3/uL (4.0-10.0)
[2020-05-23 01:00] LABS: HEMATOCRIT 39.4 % (36.0-47.0); MEAN CORPUSCULAR HEMOGLOBIN 27.7 pg (27.0-33.0); MEAN CORPUSCULAR VOLUME 83.8 fl (80.0-96.0); PLATELET COUNT, AUTOMATED 242 10^3/uL (150-450); WHITE BLOOD COUNT 8.4 10^3/uL (4.0-10.0)
[2020-05-23 16:43] LABS: BASO % 0.4 % (0.0-1.0); EOS # 0.1 10^3/uL (0.0-0.5); EOS % 1.7 % (0.0-3.0); HEMATOCRIT 40.9 % (36.0-47.0); HEMOGLOBIN 13.5 g/dl (12.0-15.5); LYMPH # 2.4 10^3/uL (1.5-5.0); MEAN CORPUSCULAR VOLUME 84.7 fl (80.0-96.0); MONO # 0.5 10^3/uL (0.0-0.8); MONO % 7.3 % (0.0-5.0); NEUTROPHILS # 3.9 10^3/uL (1.5-8.5); NEUTROPHILS % 56.2 % (36.0-66.0); PLATELET COUNT, AUTOMATED 261 10^3/uL (150-450); RED BLOOD COUNT 4.83 10^6/uL (4.00-5.40)
[2020-06-12 21:18] LABS: BLOOD UREA NITROGEN 8 MG/DL (7-18); CALCIUM LEVEL 9.2 MG/DL (8.8-10.2); CARBON DIOXIDE LEVEL 27 MEQ/L (21-32); CHLORIDE LEVEL 100 MEQ/L (98-107); CK-MB VALUE MASS 2.2 NG/ML (<3.6); CPK CREATINE PHOSPHOKINASE 127 U/L (26-192); CREATININE FOR GFR 0.64 MG/DL (0.55-1.30); FREE T4 1.16 NG/DL (0.76-1.46); GLOMERULAR FILTRATION RATE > 60.0 (>45); GLUCOSE, FASTING 104 MG/DL (70-100); MB/CK RELATIVE INDEX 1.73 (< OR =4); POTASSIUM SERUM 3.9 MEQ/L (3.5-5.1); SODIUM LEVEL 134 MEQ/L (136-145); TROPONIN I < 0.02 NG/ML (< 0.10)
[2020-06-22 13:14] LABS: BLOOD UREA NITROGEN 9 MG/DL (7-18); CALCIUM LEVEL 9.7 MG/DL (8.8-10.2); CARBON DIOXIDE LEVEL 27 MEQ/L (21-32); CHLORIDE LEVEL 98 MEQ/L (98-107); CREATININE FOR GFR 0.68 MG/DL (0.55-1.30); GLOMERULAR FILTRATION RATE > 60.0 (>45); GLUCOSE, FASTING 195 MG/DL (70-100); HEMOGLOBIN A1c 6.8 %; POTASSIUM SERUM 4.2 MEQ/L (3.5-5.1); SODIUM LEVEL 133 MEQ/L (136-145)
[2020-06-23 08:57] LABS: BLOOD UREA NITROGEN 13 MG/DL (7-18); CALCIUM LEVEL 9.8 MG/DL (8.8-10.2); CARBON DIOXIDE LEVEL 32 MEQ/L (21-32); CHLORIDE LEVEL 98 MEQ/L (98-107); CREATININE FOR GFR 0.68 MG/DL (0.55-1.30); GLOMERULAR FILTRATION RATE > 60.0 (>45); GLUCOSE, FASTING 123 MG/DL (70-100); POTASSIUM SERUM 4.3 MEQ/L (3.5-5.1); SODIUM LEVEL 135 MEQ/L (136-145)
[2020-06-23 16:21] LABS: BLOOD UREA NITROGEN 13 MG/DL (7-18); CHLORIDE LEVEL 97 MEQ/L (98-107); CREATININE FOR GFR 0.66 MG/DL (0.55-1.30); GLOMERULAR FILTRATION RATE > 60.0 (>45); GLUCOSE, FASTING 130 MG/DL (70-100); POTASSIUM SERUM 4.4 MEQ/L (3.5-5.1); SODIUM LEVEL 134 MEQ/L (136-145)
[2020-06-23 16:22] LABS: CALCIUM LEVEL 9.7 MG/DL (8.8-10.2); CARBON DIOXIDE LEVEL 33 mmol/L (20-29)
== END 2020-04-01 12:43 | disposition home or self-care (01) | DRG 552 ==
LOC: M ED 13:50 → M MS5PR 21:15
PROVIDERS: ADMIT Internal Medicine Nephrology; ATTEND Internal Medicine Nephrology
DX: S22.028A Other fracture of second thoracic vertebra, initial encounter for closed fracture (principal); J44.9 Chronic obstructive pulmonary disease, unspecified; E11.40 Type 2 diabetes mellitus with diabetic neuropathy, unspecified; I10 Essential (primary) hypertension; I25.10 Atherosclerotic heart disease of native coronary artery without angina pectoris; K21.9 Gastro-esophageal reflux disease without esophagitis; G25.81 Restless legs syndrome; W10.9XXA Fall (on) (from) unspecified stairs and steps, initial encounter; Y92.009 Unspecified place in unspecified non-institutional (private) residence as the place of occurrence of the external cause; E78.5 Hyperlipidemia, unspecified; M48.02 Spinal stenosis, cervical region; Z79.899 Other long term (current) drug therapy; Z79.82 Long term (current) use of aspirin; R29.6 Repeated falls; Z87.891 Personal history of nicotine dependence; Z85.41 Personal history of malignant neoplasm of cervix uteri

== ENCOUNTER → 2020-08-30 | Outpatient (CLI) | payer MEDICARE, MEDICAID ==
[~2020-08-30] MED LIST changes: +GABA-282 PO; -GABA-843 PO; -IPRATROPIUM 0.5MG/ALBUTEROL 2.5MG INH SOL UD 3ML (DUONEB) ONE; -LISI-538 PO; +LISI20TA33 PO
--- NOTE | 2020-08-30 10:42 | REP ---
INDICATION: PERSONAL HX OF NICOTINE DEPENDENCE COMPARISON: 04/15/2019 TECHNIQUE: Axial noncontrast images from the thoracic inlet to the upper abdomen using low-dose lung screening technique (LDCT). FINDINGS: Bilateral lung griffiths are well aerated and clear. No consolidation, significant nodule or mass lesion. No pleural effusion. No pneumothorax. Tracheobronchial tree is patent. Evidence for prior sternotomy and CABG noted. IMPRESSION: Lung-RADS category 1. No suspicious abnormalities. Management recommendations include annual low-dose CT surveillance. <Electronically signed by Maverick Olmedo > 08/30/20 1038
== END ==
LOC: M RAD 09:30
PROVIDERS: ATTEND Internal Medicine Pulmonary Disease
DX: Z12.2 Encounter for screening for malignant neoplasm of respiratory organs (principal); F17.210 Nicotine dependence, cigarettes, uncomplicated

== ENCOUNTER → 2020-10-13 | Outpatient (CLI) | payer MEDICARE, MEDICAID ==
--- NOTE | 2020-10-13 16:05 | REP ---
INDICATION: GASTROPARESIS. COMPARISON: 07/29/2010. TECHNIQUE/RADIOTRACER AND DOSE: Following the oral administration of 1.01 mCi technetium 99 M sulfur colloid in 2 scrambled eggs and 4 oz of water, multiple images of the upper abdomen are performed in the anterior and posterior projections for 90 minutes. FINDINGS: The gastric activity is measured. At the end of 90 minutes 50% of the ingested activity has emptied from the stomach. The T1/2 is 93 minutes which is normal. IMPRESSION: Normal gastric emptying. <Electronically signed by Shailesh Tinoco > 10/13/20 [id number]
== END ==
LOC: M RAD 12:27
PROVIDERS: ATTEND Internal Medicine Gastroenterology
DX: K31.84 Gastroparesis (principal)
CPT/HCPCS: 78264; A9541

== ENCOUNTER → 2020-10-19 | Outpatient (CLI) | payer MEDICARE, MEDICAID ==
[~2020-10-19] MED LIST changes: +E-Z-GAS II EFFERVESCENT PACKET (SODIUM BICARB./CITRIC ACID/SIMETHICONE) As Ordered ONE; +E-Z-HD 98% w/w 340GM SUSP BTL As Ordered ONE; +E-Z-PAQUE 96% w/w SUSP 176GM BTL As Ordered ONE
--- NOTE | 2020-10-19 16:52 | REP ---
INDICATION: DYSPHAGIA, OROPHARYNGEAL. COMPARISON: Upper GI dated 04/11/2019. TECHNIQUE: This procedure was performed by Evangelina Garcia [facility], under the direct supervision of Dr. Tinoco. Images were reviewed with Dr. Tinoco prior to dictation. Liquid barium and gas producing crystals were given in the erect position, as well as liquid barium in the prone oblique position in order to perform a double contrast upper GI examination. FINDINGS: The pipeline operator film shows no organomegaly or pathological masses. The intestinal gas pattern is unremarkable. There are sternotomy wires. There is an anterior fixation plate from C5-C7. The oral and pharyngeal stages of deglutition were unremarkable. Esophageal transport is prompt and efficient and there is no evidence of esophagitis, stricture, or mucosal ring. However tertiary contractions were visualized during the exam. There is evidence of a hiatal hernia. Gastroesophageal reflux was visualized to the level of the harmony.. The stomach morel are normally outlined. The rugal folds are smooth and regular. There is no gastritis, neoplasm, or ulcerative disease. The duodenal morel are normally outlined. The mucosal folds are smooth and regular. There is no duodenitis, peptic ulcer disease or neoplasm. The visualized portion of the proximal small bowel appears normal in course and caliber. IMPRESSION: 1. Small hiatal hernia. 2. Gastroesophageal reflux at to the level of the harmony. 3. Tertiary contractions. 0.6 minutes of fluoroscopy time was utilized for this procedure. Some fluoroscopic images are performed with last image hold technology. These images require no additional radiation. <Electronically signed by Evangelina Garcia > 10/19/20 1413 <Electronically signed by Shailesh Tinoco > 10/19/20 2006
== END ==
LOC: M RAD 08:47
PROVIDERS: ATTEND Internal Medicine Gastroenterology
DX: R13.12 Dysphagia, oropharyngeal phase (principal); K44.9 Diaphragmatic hernia without obstruction or gangrene; K21.9 Gastro-esophageal reflux disease without esophagitis

== ENCOUNTER → 2020-12-11 | Outpatient (CLI) | payer MEDICARE, MEDICAID ==
[~2020-12-11] MED LIST changes: -E-Z-GAS II EFFERVESCENT PACKET (SODIUM BICARB./CITRIC ACID/SIMETHICONE) As Ordered ONE; -E-Z-HD 98% w/w 340GM SUSP BTL As Ordered ONE; -E-Z-PAQUE 96% w/w SUSP 176GM BTL As Ordered ONE
== END ==
LOC: M LABSMTC 09:15
PROVIDERS: ATTEND Anesthesiology
DX: Z01.818 Encounter for other preprocedural examination (principal); Z11.52 Encounter for screening for COVID-19

== ENCOUNTER 2020-12-16 09:04 | Day surgery (SDC) | payer MEDICARE, MEDICAID ==
[~2020-12-16] VITALS: Ht 165.1 cm; Wt 58.5 kg
[~2020-12-16 09:04] MED LIST changes: +NS 1,000 ML IV ONE
[2020-12-16] MEDS ORDERED: LIDOCAINE 2% 100MG/5ML SDV (FOR ANES.) As Ordered ONE (11:30)
[2020-12-16] MEDS ORDERED: propofoL 200 MG/20 ML VIAL As Ordered ONE (11:30)
[2020-12-16] MEDS ORDERED: fentaNYL 100 MCG/2 ML INJECTION (J3010) As Ordered ONE (11:30)
--- NOTE | 2020-12-16 12:05 | ROOR ---
Patient Name: Olga Wallace Procedure Date: 12/16/2020 11:52 AM Date of : 1955 Age: 65 Room: [facility] Gender: Female Note Status: Finalized Procedure: Upper GI endoscopy Indications: Oral phase dysphagia Providers: Holden RAMÍREZ MD Referring MD: Lisa Donaldson NP Requesting Provider: Medicines: Monitored Anesthesia Care Complications: No immediate complications. Procedure: Pre-Anesthesia Assessment: - The heart rate, respiratory rate, oxygen saturations, blood pressure, adequacy of pulmonary ventilation, and response to care were monitored throughout the procedure. The Endoscope was introduced through the mouth, and advanced to the second part of duodenum. The upper GI endoscopy was accomplished without difficulty. The patient tolerated the procedure well. Findings: The esophagus was normal. The stomach was normal. The examined duodenum was normal. No endoscopic abnormality was evident in the esophagus to explain the patient's complaint of dysphagia. It was decided, however, to proceed with dilation of the entire esophagus. The scope was withdrawn. Dilation was performed with a Jurado dilator with no resistance at 56 Fr. The dilation site was examined and showed no change. Impression: - Normal esophagus. - Normal stomach. - Normal examined duodenum. - No endoscopic esophageal abnormality to explain patient's dysphagia. Esophagus dilated. Dilated. - No specimens collected. Recommendation: - Observe patient's clinical course. - Continue present medications. - Gastroparesis diet: - Eat smaller, more frequent meals throughout the day. - Low fat diet. - Liquid/soft foods are tolerated better than solid foods. - Low fiber/well cooked vegetables are tolerated better than high fiber/fibrous foods/raw vegetables. - Avoid medications that inhibit gastric/intestinal motility such as narcotic medications. Procedure Code(s): --- Professional --- 29732, Esophagogastroduodenoscopy, flexible, transoral; diagnostic, including collection of specimen(s) by brushing or washing, when performed (separate procedure) 34644, Dilation of esophagus, by unguided sound or bougie, single or multiple passes Diagnosis Code(s): --- Professional --- R13.11, Dysphagia, oral phase CPT copyright 2019 [employer]. All rights reserved. The codes documented in this report are preliminary and upon inpatient care manager rn review may be revised to meet current compliance requirements. Holden Ramírez MD Holden RAMÍREZ MD 12/16/2020 12:04:34 PM Electronically signed by Holden RAMÍREZ MD Number of Addenda: 0 Note Initiated On: 12/16/2020 11:52 AM Estimated Blood Loss: Estimated blood loss: none.
[2020-12-16 12:25] VITALS: BP 194/103
== END 2020-12-16 12:31 | disposition home or self-care (01) ==
LOC: M OPP 09:04
PROVIDERS: ATTEND Internal Medicine Gastroenterology
DX: R13.11 Dysphagia, oral phase (principal); J44.9 Chronic obstructive pulmonary disease, unspecified
CPT/HCPCS: 43235; 43450; J3010

== ENCOUNTER 2021-02-13 12:16 | Emergency (ER) | payer MEDICARE, MEDICAID ==
[~2021-02-13] VITALS: Ht 165.1 cm; Wt 59.1 kg
[~2021-02-13 12:16] MED LIST changes: +BACTDSTA PO; -NS 1,000 ML IV ONE; -SULF1TAB93 PO
[2021-02-13] MEDS ORDERED: PREG150C (12:24)
[2021-02-13] MEDS ORDERED: HYDR-4517 (12:24)
[2021-02-13] MEDS ORDERED: NORCO, ANEXSIA 5/325MG TABLET (HYDROcodone/ACETAMINOPHEN) PO ONE (14:30)
--- NOTE | 2021-02-13 14:36 | REP ---
INDICATION: fall/pain COMPARISON: None. TECHNIQUE: Internal rotation, external rotation, and Y view. FINDINGS: Age-related osteopenia and degenerative changes are appreciated including cortical irregularity and subtle spurring at the acromioclavicular joint as well as subtle changes along the glenoid rim. The subacromial space is normal. No evidence for acute fracture or dislocation. No periarticular calcifications or loose bodies are identified. IMPRESSION: Osteopenia and age-related degenerative changes. No acute fracture or dislocation appreciated. <Electronically signed by Maverick Olmedo > 02/13/21 [id number]
[2021-02-13 15:03] VITALS: BP 149/94
== END 2021-02-13 15:18 | disposition home or self-care (01) ==
LOC: M ED 12:16
DX: M25.512 Pain in left shoulder (principal); I10 Essential (primary) hypertension; E11.9 Type 2 diabetes mellitus without complications; I25.10 Atherosclerotic heart disease of native coronary artery without angina pectoris; G47.33 Obstructive sleep apnea (adult) (pediatric); Z79.899 Other long term (current) drug therapy; Z79.82 Long term (current) use of aspirin; Z79.84 Long term (current) use of oral hypoglycemic drugs

== ENCOUNTER → 2021-03-08 | Outpatient (CLI) | payer MEDICARE, MEDICAID ==
[~2021-03-08] MED LIST changes: +HYDR-4517; +PREG150C
--- NOTE | 2021-03-08 17:00 | REP ---
INDICATION: CHRONIC OBSTRUCTIVE PULMONARY DISEASE W (ACUTE) EXACERBATION COMPARISON: 03/29/2020. TECHNIQUE: PA/Lateral FINDINGS: Lungs: Clear, no infiltrate. Heart: Normal in size. Mediastinum: Mediastinal silhouette unremarkable. Pleural angles: Unremarkable.. Bones and soft tissues: There is diffuse osteopenia of the thoracic vertebral bodies. There is compression of what appears to be L1, unchanged. Multiple sternal wires are present, virtually all are broken. There are mediastinal clips present. A metallic plate and screws are seen in the lower cervical spine. IMPRESSION: No acute pulmonary disease. Stable chronic changes. <Electronically signed by Shailesh Tinoco > 03/08/21 [id number]
== END ==
LOC: M PLAIMG 15:31
PROVIDERS: ATTEND Nurse Practitioner Family
DX: J44.1 Chronic obstructive pulmonary disease with (acute) exacerbation (principal); M85.88 Other specified disorders of bone density and structure, other site

== ENCOUNTER → 2021-03-19 | Outpatient (CLI) | payer MEDICARE, MEDICAID ==
--- NOTE | 2021-03-19 19:01 | REPVR ---
PROCEDURE INFORMATION: Exam: MR Left Upper Extremity Joint Without Contrast; Shoulder Exam date and time: 03/19/2021 4:02 PM Age: 65 years old Clinical indication: Pain; Shoulder; Left; Additional info: Impingement syndrome TECHNIQUE: Imaging protocol: MR of the Left upper extremity without contrast. Exam focused on the shoulder. Total images: 177 COMPARISON: CR Shoulder, complete 02/13/2021 2:02 PM FINDINGS: Limitations: Severe motion artifact on all images Joint spaces: Large joint effusion IMPRESSION: Nondiagnostic study. Electronically signed by: Crow Welch On 03/19/2021 19:00:51 PM
== END ==
LOC: M RAD 14:25
PROVIDERS: ATTEND Orthopaedic Surgery Sports Medicine
DX: M75.42 Impingement syndrome of left shoulder (principal)

== ENCOUNTER → 2021-05-16 | Outpatient (CLI) | payer MEDICARE, MEDICAID ==
--- NOTE | 2021-05-16 09:08 | REP ---
INDICATION: IMPINGEMENT SYNDROME OF LT SHOULDER. COMPARISON: Comparison left shoulder radiographs are from February 13, 2021. TECHNIQUE: Axial, oblique coronal, and oblique sagittal imaging planes utilized. T1 and T2 weighted scans are included with without fat saturation. FINDINGS: The glenohumeral and acromioclavicular joints are normally aligned. There is osteoarthritic hypertrophy at the acromioclavicular joint superiorly and minimally inferiorly. There is minimal marginal glenohumeral spurring. There is a small subcortical cyst in the superior glenoid. Subcortical cysts are seen in the superolateral humeral head. This may correlate with impingement. T2 weighted scans demonstrate a small glenohumeral joint effusion. There is increased signal intensity and thickening in the distal supraspinatus tendon consistent with moderate tendinosis. No focal full-thickness supraspinatus cuff tear is seen. There is some tendinosis change in the subscapularis tendon which is otherwise intact. Infraspinatus tendon is unremarkable. The biceps tendon is in the bony bicipital groove. There is fluid in the tendon sheath but the tendon appears intact. No juxta-articular cyst or mass is seen. There is a subcortical cyst in the posterior glenoid on axial T2 weighted scans and a nondisplaced posterior glenoid labral cartilage tear is appreciated. No paralabral soft tissue cyst is appreciated. There is diffuse increased signal intensity in the superior labral cartilage consistent with degeneration. 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 Posterior nondisplaced labral tear with subcortical cyst in the glenoid. Small joint effusion in the glenohumeral articulation. Tendinosis in the supraspinatus and to a lesser extent subscapularis tendons. No focal cuff tear. Diffuse degenerative increased signal in the superior labral cartilage. <Electronically signed by Octavio Milian > 05/16/21 [id number]
== END ==
LOC: M PLAIMG 07:28
PROVIDERS: ATTEND Orthopaedic Surgery Sports Medicine
DX: M75.42 Impingement syndrome of left shoulder (principal)

== ENCOUNTER → 2021-06-20 | Outpatient (CLI) | payer MEDICARE, MEDICAID ==
[2021-06-20 18:52] LABS: HEMOGLOBIN A1c 6.3 %
[2021-06-20 18:58] LABS: ALBUMIN 4.3 GM/DL (3.2-5.2); ALT/SGPT 30 U/L (12-78); BILIRUBIN,TOTAL 0.3 MG/DL (0.2-1.0); BLOOD UREA NITROGEN 13 MG/DL (7-18); CALCIUM LEVEL 10.1 MG/DL (8.8-10.2); CARBON DIOXIDE LEVEL 33 MEQ/L (21-32); CHLORIDE LEVEL 95 MEQ/L (98-107); CHOLESTEROL LEVEL 225 MG/DL (<200); CHOLESTEROL RISK RATIO 3.515 (<5); GLOMERULAR FILTRATION RATE > 60.0 (>45); GLUCOSE, FASTING 79 MG/DL (70-100); HDL CHOLESTEROL 64 MG/DL (>40); LDL CHOLESTEROL 110 MG/DL (<100); NON-HDL-C 161 MG/DL; POTASSIUM SERUM 4.5 MEQ/L (3.5-5.1); SODIUM LEVEL 132 MEQ/L (136-145); TOTAL PROTEIN 7.7 GM/DL (6.4-8.2); TRIGLYCERIDES LEVEL 257 MG/DL (<150)
[2021-06-20 19:06] LABS: TOTAL 25(OH) VITAMIN D 70.9 NG/ML (30.0-100.0)
== END ==
LOC: M PLALAB 16:00
PROVIDERS: ATTEND Nurse Practitioner Adult Health
DX: E11.69 Type 2 diabetes mellitus with other specified complication (principal); I10 Essential (primary) hypertension; E55.9 Vitamin D deficiency, unspecified; E78.2 Mixed hyperlipidemia; Z23 Encounter for immunization
CPT/HCPCS: 36415; 80053; 80061; 82306; 83036; 90682; G0008; G0463

== ENCOUNTER → 2022-01-20 | Outpatient (CLI) | payer MEDICARE, MEDICAID ==
[~2022-01-20] MED LIST changes: +ASPI81TA26 PO; +ERGO500029 PO; +HYDR-4517 PO; +HYDR-4571 PO; +PREG75CA2 PO; +SERT-141 PO; +SPIR-10 PO; +TIZA10TA; -TIZA4TAB4; +TRAZ-252 PO; +XALA0.007 OU; +ZOLO100T PO
[2022-01-20 15:03] LABS: HEMATOCRIT 31.8 % (36.0-47.0); HEMOGLOBIN 9.6 g/dl (12.0-15.5); MEAN CORPUSCULAR HEMOGLOBIN 21.9 pg (27.0-33.0); MEAN CORPUSCULAR HGB CONC 30.2 g/dl (32.0-36.5); MEAN CORPUSCULAR VOLUME 72.4 fl (80.0-96.0); PLATELET COUNT, AUTOMATED 392 10^3/uL (150-450); RED BLOOD COUNT 4.39 10^6/uL (4.00-5.40); WHITE BLOOD COUNT 6.7 10^3/uL (4.0-10.0)
[2022-01-20 15:54] LABS: CREATININE, URINE 21.4 MG/DL; MALB URINE SIEMENS 6.5 MG/L; MAU/CREAT RATIO 30.3 MCG/MG (0.0-30.0)
[2022-01-20 18:14] LABS: ALBUMIN 3.9 GM/DL (3.2-5.2); ALT/SGPT 18 U/L (12-78); BILIRUBIN,TOTAL 0.4 MG/DL (0.2-1.0); BLOOD UREA NITROGEN 13 MG/DL (7-18); CARBON DIOXIDE LEVEL 31 MEQ/L (21-32); CHLORIDE LEVEL 94 MEQ/L (98-107); CHOLESTEROL LEVEL 142 MG/DL (<200); CREATININE FOR GFR 0.58 MG/DL (0.55-1.30); FERRITIN 29 NG/ML (8-252); GLOMERULAR FILTRATION RATE > 60.0 (>45); GLUCOSE, FASTING 96 MG/DL (70-100); HDL CHOLESTEROL 50 MG/DL (>40); IRON (FE) 15 UG/DL (50-170); LDL CHOLESTEROL 68 MG/DL (<100); NON-HDL-C 92 MG/DL; POTASSIUM SERUM 4.2 MEQ/L (3.5-5.1); SODIUM LEVEL 131 MEQ/L (136-145); TOTAL 25(OH) VITAMIN D 83.4 NG/ML (30.0-100.0); TOTAL IRON BINDING CAPACITY 502 UG/DL (250-450); TOTAL PROTEIN 7.5 GM/DL (6.4-8.2); TRIGLYCERIDES LEVEL 118 MG/DL (<150)
[2022-01-20 18:51] LABS: HEMOGLOBIN A1c 5.7 %
== END ==
LOC: M PLALAB 09:38
PROVIDERS: ATTEND Nurse Practitioner Adult Health
DX: D64.9 Anemia, unspecified (principal); E11.69 Type 2 diabetes mellitus with other specified complication; I10 Essential (primary) hypertension; E78.5 Hyperlipidemia, unspecified; E55.9 Vitamin D deficiency, unspecified; Z13.29 Encounter for screening for other suspected endocrine disorder

== ENCOUNTER 2022-01-22 15:08 | Inpatient (IN) | payer MEDICARE, MEDICAID ==
[~2022-01-22] VITALS: Ht 162.6 cm; Wt 59.0 kg
[2022-01-22] MEDS: PREGABALIN 75 MG CAP(LYRICA) PO SCH (00:29)
[~2022-01-22 15:08] MED LIST changes: -ASPI81TA26 PO; -ERGO500029 PO; -HYDR-4517 PO; -HYDR-4571 PO; -PREG75CA2 PO; -SERT-141 PO; -SPIR-10 PO; -TRAZ-252 PO; -XALA0.007 OU; -ZOLO100T PO
[2022-01-22] MEDS ORDERED: fentaNYL 100 MCG/2 ML INJECTION IV ONE ×2 (17:20→20:50)
[2022-01-22] MEDS: NS 1,000 ML IV SCH (19:50)
[2022-01-22] MEDS ORDERED: propofoL 200 MG/20 ML VIAL IV.PROC PRN (19:50)
[2022-01-22] MEDS: ADVAIR HFA 115/21MCG INHALER INH SCH (20:00)
[2022-01-22] MEDS ORDERED: ETOMIDATE INJ 20MG/10ML VIAL IV ONE (21:00)
[2022-01-22] MEDS ORDERED: ETOMIDATE INJ 20MG/10ML VIAL As Ordered ONE (21:00)
[2022-01-22] MEDS ORDERED: PREGABALIN 75 MG CAP(LYRICA) PO ONE (21:40)
[2022-01-22] MEDS ORDERED: NORCO, ANEXSIA 5/325MG TABLET (HYDROcodone/ACETAMINOPHEN) PO ONE (21:40)
[2022-01-22] MEDS ORDERED: MORPHINE 2 MG/ML 1ML VIAL IV PRN (22:00)
[2022-01-22] MEDS ORDERED: ONDANSETRON 4MG/2ML VIAL IV PRN (22:00)
[2022-01-22] MEDS ORDERED: HYDR-4571 PO (22:18)
[2022-01-22] MEDS ORDERED: PREG75CA2 PO (22:27)
[2022-01-22] MEDS ORDERED: ZOLO100T PO (22:27)
[2022-01-22] MEDS ORDERED: ERGO500029 PO (22:27)
[2022-01-22] MEDS ORDERED: ASPI81TA26 PO (22:27)
[2022-01-22] MEDS ORDERED: TRAZ-252 PO (22:28)
[2022-01-22] MEDS ORDERED: LOSA100T8 PO (22:47)
[2022-01-22] MEDS ORDERED: SERT-141 PO (22:47)
[2022-01-22] MEDS ORDERED: HYDR-4517 PO (22:47)
[2022-01-22] MEDS ORDERED: SPIR-10 PO (22:49)
[2022-01-22] MEDS ORDERED: XALA0.007 OU (22:49)
[2022-01-22] MEDS ORDERED: HOME MED LIST COMPLETE! XX SCH (22:50)
[2022-01-22] MEDS ORDERED: ALBUTEROL 90 MCG/ACT 8GM HFA INHALER INH PRN (23:50)
[2022-01-23] VITALS (9 sets, daily range): BP systolic 103–145; BP diastolic 68–90; O2SAT 98
[2022-01-23 00:34] LABS: RSV AMPLIFICATION NEGATIVE (NEGATIVE)
[2022-01-23] MEDS: METOPROLOL TART 25 MG TABLET PO SCH ×3 (00:49→20:03)
[2022-01-23] MEDS: SERTRALINE HCL 50 MG TAB PO SCH ×2 (00:49→20:04)
[2022-01-23] MEDS: carisoprodoL 350 MG TAB PO PRN ×2 (00:49→23:02)
[2022-01-23 01:05] LABS: BASO % 0.3 % (0.0-1.0); EOS # 0.2 10^3/uL (0.0-0.5); EOS % 1.5 % (0.0-3.0); HEMATOCRIT 31.1 % (36.0-47.0); HEMOGLOBIN 9.5 g/dl (12.0-15.5); LYMPH # 2.8 10^3/uL (1.5-5.0); LYMPH % 26.8 % (24.0-44.0); MEAN CORPUSCULAR HEMOGLOBIN 21.9 pg (27.0-33.0); MEAN CORPUSCULAR HGB CONC 30.5 g/dl (32.0-36.5); MEAN CORPUSCULAR VOLUME 71.8 fl (80.0-96.0); MONO # 0.9 10^3/uL (0.0-0.8); MONO % 8.1 % (2.0-8.0); NEUTROPHILS # 6.6 10^3/uL (1.5-8.5); NEUTROPHILS % 62.9 % (36.0-66.0); PLATELET COUNT, AUTOMATED 369 10^3/uL (150-450); RED BLOOD COUNT 4.33 10^6/uL (4.00-5.40); WHITE BLOOD COUNT 10.5 10^3/uL (4.0-10.0)
[2022-01-23 01:17] LABS: BLOOD UREA NITROGEN 13 MG/DL (7-18); CARBON DIOXIDE LEVEL 27 MEQ/L (21-32); CHLORIDE LEVEL 102 MEQ/L (98-107); CREATININE FOR GFR 0.63 MG/DL (0.55-1.30); GLOMERULAR FILTRATION RATE > 60.0 (>45); GLUCOSE, FASTING 108 MG/DL (70-100); POTASSIUM SERUM 3.4 MEQ/L (3.5-5.1); SODIUM LEVEL 134 MEQ/L (136-145)
[2022-01-23] MEDS: LATANOPROST 0.005% OPHTH SOLN 2.5 ML OU SCH ×2 (01:28→21:14)
[2022-01-23] MEDS ORDERED: ACETAMINOPHEN TAB 650MG DOSE (2X325MG) PO PRN (02:00)
[2022-01-23] MEDS ORDERED: MORPHINE 4 MG/ML 1ML VIAL/SYRINGE IV ONE (04:00)
[2022-01-23] MEDS: NS 1,000 ML IV SCH (06:09)
[2022-01-23] MEDS ORDERED: GLUCOSE 4GM CHEW TABLET PO PRN (06:30)
[2022-01-23] MEDS ORDERED: DEXTROSE 50% 50 ML SYRINGE IV PRN (06:30)
[2022-01-23] MEDS ORDERED: GLUCAGON INJ 1MG VIAL SC PRN (06:30)
[2022-01-23] MEDS: MORPHINE 2 MG/ML 1ML VIAL IV PRN ×2 (06:38→20:34)
[2022-01-23 07:11] LABS: HEMATOCRIT 29.5 % (36.0-47.0); HEMOGLOBIN 8.9 g/dl (12.0-15.5); MEAN CORPUSCULAR HEMOGLOBIN 21.9 pg (27.0-33.0); MEAN CORPUSCULAR HGB CONC 30.2 g/dl (32.0-36.5); MEAN CORPUSCULAR VOLUME 72.5 fl (80.0-96.0); PLATELET COUNT, AUTOMATED 330 10^3/uL (150-450); RED BLOOD COUNT 4.07 10^6/uL (4.00-5.40); WHITE BLOOD COUNT 9.5 10^3/uL (4.0-10.0)
[2022-01-23 07:20] LABS: BLOOD UREA NITROGEN 12 MG/DL (7-18); CARBON DIOXIDE LEVEL 26 MEQ/L (21-32); CHLORIDE LEVEL 104 MEQ/L (98-107); CREATININE FOR GFR 0.58 MG/DL (0.55-1.30); GLOMERULAR FILTRATION RATE > 60.0 (>45); GLUCOSE, FASTING 103 MG/DL (70-100); POTASSIUM SERUM 3.8 MEQ/L (3.5-5.1); SODIUM LEVEL 137 MEQ/L (136-145)
[2022-01-23 07:21] LABS: CALCIUM LEVEL 8.6 MG/DL (8.8-10.2); MAGNESIUM LEVEL 1.8 MG/DL (1.8-2.4)
[2022-01-23 07:30] LABS: INR 1.04
[2022-01-23 07:31] LABS: PARTIAL THROMBOPLASTIN TIME 30.3 SECONDS (25.9-37.0)
[2022-01-23] MEDS ORDERED: ETOMIDATE INJ 20MG/10ML VIAL As Ordered ONE (07:53)
[2022-01-23] MEDS: ADVAIR HFA 115/21MCG INHALER INH SCH ×2 (08:00→21:02)
[2022-01-23] MEDS ORDERED: POTASSIUM CHLORIDE 10MEQ SR TABLET PO ONE (08:00)
[2022-01-23] MEDS ORDERED: MIDAZOLAM INJ 2MG/2ML VIAL (J2250 PER 1MG) As Ordered ONE (08:11)
[2022-01-23] MEDS ORDERED: fentaNYL 100 MCG/2 ML INJECTION As Ordered ONE (08:13)
[2022-01-23] MEDS ORDERED: MORPHINE 2 MG/ML 1ML VIAL IV PRN (08:15)
[2022-01-23] MEDS ORDERED: LR 1,000 ML IV SCH (08:15)
[2022-01-23] MEDS ORDERED: ONDANSETRON 4MG/2ML VIAL IV PRN (08:15)
[2022-01-23] MEDS ORDERED: oxyCODONE 5MG TAB PO PRN (08:15)
[2022-01-23] MEDS ORDERED: fentaNYL 100 MCG/2 ML INJECTION IV PRN (08:15)
[2022-01-23] MEDS ORDERED: LIDOCAINE 2% 100MG/5ML SDV (FOR ANES.) As Ordered ONE (08:33)
[2022-01-23] MEDS ORDERED: hydrALAZINE 20MG/ML 1ML VIAL (J0360 PER 20MG) IV ONE (08:40)
[2022-01-23 08:41] LABS: PERCENT SATURATION 5.8 % (13.2-45.0)
[2022-01-23] MEDS ORDERED: ASPIRIN 81MG ENTERIC TABLET PO SCH (09:00)
[2022-01-23] MEDS ORDERED: propofoL 200 MG/20 ML VIAL As Ordered ONE (10:03)
[2022-01-23] MEDS: ATORVASTATIN 10 MG TAB PO SCH (10:04)
[2022-01-23] MEDS: PREGABALIN 75 MG CAP(LYRICA) PO SCH ×3 (10:04→20:03)
[2022-01-23] MEDS: SPIRONOLACTONE 25 MG TAB PO SCH (10:05)
[2022-01-23] MEDS: SERTRALINE 100 MG TAB PO SCH (10:05)
[2022-01-23 11:28] LABS: FOLATE 18.8 NG/ML (>5.4)
[2022-01-23] MEDS ORDERED: INSULIN LISPRO (NovoLOG) PER UNIT SC SCH ×2 (12:00→21:00)
[2022-01-23] MEDS: FERROUS SULFATE 325MG TAB PO SCH (12:31)
[2022-01-23] MEDS: ANEXSIA, NORCO 7.5MG/325MG TABLET(HYDROCODONE/APAP) PO PRN ×2 (14:01→20:04)
[2022-01-23] MEDS: INSULIN LISPRO (NovoLOG) PER UNIT SC SCH (17:30)
[2022-01-24] MEDS: MORPHINE 2 MG/ML 1ML VIAL IV PRN (00:36)
[2022-01-24 01:45] VITALS: BP 139/73
[2022-01-24 05:49] VITALS: BP 163/76
[2022-01-24] MEDS ORDERED: METOPROLOL TART 25 MG TABLET PO ONE (06:10)
[2022-01-24 06:21] LABS: HEMATOCRIT 28.3 % (36.0-47.0); HEMOGLOBIN 8.5 g/dl (12.0-15.5); MEAN CORPUSCULAR HEMOGLOBIN 21.7 pg (27.0-33.0); MEAN CORPUSCULAR VOLUME 72.2 fl (80.0-96.0); PLATELET COUNT, AUTOMATED 294 10^3/uL (150-450); RED BLOOD COUNT 3.92 10^6/uL (4.00-5.40); WHITE BLOOD COUNT 7.3 10^3/uL (4.0-10.0)
[2022-01-24 06:31] VITALS: BP 170/70
[2022-01-24 06:49] LABS: BLOOD UREA NITROGEN 9 MG/DL (7-18); CALCIUM LEVEL 8.8 MG/DL (8.8-10.2); CARBON DIOXIDE LEVEL 30 MEQ/L (21-32); CHLORIDE LEVEL 103 MEQ/L (98-107); CREATININE FOR GFR 0.54 MG/DL (0.55-1.30); GLOMERULAR FILTRATION RATE > 60.0 (>45); GLUCOSE, FASTING 84 MG/DL (70-100); SODIUM LEVEL 136 MEQ/L (136-145)
[2022-01-24] MEDS: INSULIN LISPRO (NovoLOG) PER UNIT SC SCH ×2 (07:30→11:55)
[2022-01-24] MEDS: ADVAIR HFA 115/21MCG INHALER INH SCH (07:47)
[2022-01-24] MEDS: SPIRONOLACTONE 25 MG TAB PO SCH (08:34)
[2022-01-24] MEDS: SERTRALINE 100 MG TAB PO SCH (08:34)
[2022-01-24] MEDS: FERROUS SULFATE 325MG TAB PO SCH (08:35)
[2022-01-24] MEDS: PREGABALIN 75 MG CAP(LYRICA) PO SCH ×2 (08:35→14:59)
[2022-01-24] MEDS: ATORVASTATIN 10 MG TAB PO SCH (08:35)
[2022-01-24] MEDS ORDERED: ASPIRIN 81MG ENTERIC TABLET PO SCH (09:00)
[2022-01-24] MEDS ORDERED: ENOXAPARIN 40MG/0.4ML SYRINGE (J1650 PER 10MG) SC SCH (09:00)
[2022-01-24 10:00] VITALS: BP 150/72
[2022-01-24] MEDS: ANEXSIA, NORCO 7.5MG/325MG TABLET(HYDROCODONE/APAP) PO PRN (10:19)
[2022-01-24] MEDS ORDERED: FERR1TAB8 PO (12:47)
[2022-01-24] MEDS: carisoprodoL 350 MG TAB PO PRN (14:59)
== END 2022-01-24 15:10 | disposition home or self-care (01) | DRG 561 ==
LOC: M ED 15:08 → M ED INP 22:04 → ENRESERV 01-23 08:30 → M MS5PR 01-23 09:50
PROVIDERS: ADMIT Family Medicine; ATTEND Family Medicine
PROC: 0SSBXZZ Reposition Left Hip Joint, External Approach (ICD-10-PCS; principal; 2022-01-23 11:00)
DX: T84.021A Dislocation of internal left hip prosthesis, initial encounter (principal); E11.9 Type 2 diabetes mellitus without complications; I10 Essential (primary) hypertension; I25.10 Atherosclerotic heart disease of native coronary artery without angina pectoris; F17.200 Nicotine dependence, unspecified, uncomplicated; G25.81 Restless legs syndrome; Y83.1 Surgical operation with implant of artificial internal device as the cause of abnormal reaction of the patient, or of later complication, without mention of misadventure at the time of the procedure; F32.A Depression, unspecified; D50.9 Iron deficiency anemia, unspecified; F41.9 Anxiety disorder, unspecified; E78.5 Hyperlipidemia, unspecified; Z98.61 Coronary angioplasty status; Z79.82 Long term (current) use of aspirin; Z79.84 Long term (current) use of oral hypoglycemic drugs; Z79.899 Other long term (current) drug therapy; Z98.1 Arthrodesis status

== ENCOUNTER 2022-02-18 03:36 | Inpatient (IN) | payer MEDICARE, MEDICAID ==
[~2022-02-18] VITALS: Ht 165.1 cm; Wt 63.2 kg
[~2022-02-18 03:36] MED LIST changes: +ASPI81TA26 PO; +ERGO500029 PO; +FERR1TAB8 PO; +HYDR-4517 PO; +HYDR-4571 PO; +PREG75CA2 PO; +SERT-141 PO; +SPIR-10 PO; +TRAZ-252 PO; +XALA0.007 OU; +ZOLO100T PO
[2022-02-18] MEDS ORDERED: ONDANSETRON 4MG 2ML VIAL IV ONE (04:05)
[2022-02-18] MEDS ORDERED: MORPHINE 4 MG/ML 1ML VIAL/SYRINGE IV PRN (04:05)
[2022-02-18] MEDS ORDERED: NS 1,000 ML IV SCH ×2 (04:10→05:50)
[2022-02-18] MEDS ORDERED: KETAMINE HCL 200 MG/20 ML VIAL IV ONE (04:20)
[2022-02-18 05:06] LABS: RSV AMPLIFICATION NEGATIVE (NEGATIVE)
[2022-02-18] MEDS: propofoL 200 MG/20 ML VIAL IV.PROC PRN (05:09)
[2022-02-18 05:21] LABS: BLOOD UREA NITROGEN 14 MG/DL (7-18); CALCIUM LEVEL 8.9 MG/DL (8.8-10.2); CARBON DIOXIDE LEVEL 25 MEQ/L (21-32); CHLORIDE LEVEL 91 MEQ/L (98-107); CREATININE FOR GFR 0.56 MG/DL (0.55-1.30); ETHYL ALCOHOL (ETHANOL) < 0.003 % (0.000-0.010); GLOMERULAR FILTRATION RATE > 60.0 (>45); GLUCOSE, FASTING 114 MG/DL (70-100); POTASSIUM SERUM 4.2 MEQ/L (3.5-5.1); SODIUM LEVEL 126 MEQ/L (136-145)
[2022-02-18 05:30] LABS: BASO % 0.4 % (0.0-1.0); EOS # 0.2 10^3/uL (0.0-0.5); EOS % 2.7 % (0.0-3.0); HEMATOCRIT 28.4 % (36.0-47.0); HEMOGLOBIN 8.7 g/dl (12.0-15.5); LYMPH # 1.6 10^3/uL (1.5-5.0); LYMPH % 21.6 % (24.0-44.0); MEAN CORPUSCULAR HEMOGLOBIN 22.5 pg (27.0-33.0); MEAN CORPUSCULAR HGB CONC 30.6 g/dl (32.0-36.5); MEAN CORPUSCULAR VOLUME 73.4 fl (80.0-96.0); MONO # 0.6 10^3/uL (0.0-0.8); MONO % 8.3 % (2.0-8.0); NEUTROPHILS # 4.9 10^3/uL (1.5-8.5); NEUTROPHILS % 66.5 % (36.0-66.0); PLATELET COUNT, AUTOMATED 390 10^3/uL (150-450); RED BLOOD COUNT 3.87 10^6/uL (4.00-5.40); WHITE BLOOD COUNT 7.3 10^3/uL (4.0-10.0)
[2022-02-18] MEDS ORDERED: HYDR-4571 PO (05:38)
[2022-02-18 05:40] LABS: C REACTIVE PROTEIN QUANTITATIV 0.36 MG/DL (0.00-0.30)
[2022-02-18] MEDS ORDERED: HOME MED LIST COMPLETE! XX SCH (05:40)
[2022-02-18] MEDS ORDERED: med rec comment (05:40)
[2022-02-18] MEDS ORDERED: MOM 30ML SUSPENSION UDC PO PRN (05:50)
[2022-02-18] MEDS ORDERED: ALBUTEROL 90 MCG/ACT 8GM HFA INHALER INH PRN (05:50)
[2022-02-18] MEDS ORDERED: GLUCOSE 4GM CHEW TABLET PO PRN (05:50)
[2022-02-18] MEDS ORDERED: ACETAMINOPHEN TAB 650MG DOSE (2X325MG) PO PRN (05:50)
[2022-02-18] MEDS ORDERED: GLUCAGON INJ 1MG VIAL SC PRN (05:50)
[2022-02-18] MEDS ORDERED: DEXTROSE 50% 50 ML SYRINGE IV PRN (05:50)
[2022-02-18] MEDS ORDERED: NORCO, ANEXSIA 5/325MG TABLET (HYDROcodone/ACETAMINOPHEN) PO PRN (05:50)
[2022-02-18] MEDS ORDERED: ADVAIR HFA 115/21MCG INHALER INH SCH (08:00)
[2022-02-18 08:42] LABS: BLOOD UREA NITROGEN 12 MG/DL (7-18); CALCIUM LEVEL 8.6 MG/DL (8.8-10.2); CARBON DIOXIDE LEVEL 24 MEQ/L (21-32); CHLORIDE LEVEL 99 MEQ/L (98-107); CREATININE FOR GFR 0.51 MG/DL (0.55-1.30); GLOMERULAR FILTRATION RATE > 60.0 (>45); GLUCOSE, FASTING 106 MG/DL (70-100); POTASSIUM SERUM 3.9 MEQ/L (3.5-5.1); SODIUM LEVEL 133 MEQ/L (136-145)
[2022-02-18] MEDS ORDERED: ASPIRIN 81MG ENTERIC TABLET PO SCH (09:00)
[2022-02-18] MEDS ORDERED: SERTRALINE 100 MG TAB PO SCH (09:00)
[2022-02-18] MEDS ORDERED: METOPROLOL TART 25 MG TABLET PO SCH (09:00)
[2022-02-18] MEDS ORDERED: ENOXAPARIN 40MG/0.4ML SYRINGE (J1650 PER 10MG) SC SCH (09:00)
[2022-02-18] MEDS ORDERED: hydroCHLOROthiazide 12.5 MG CAPSULE PO SCH (09:00)
[2022-02-18] MEDS ORDERED: ATORVASTATIN 10 MG TAB PO SCH (09:00)
[2022-02-18] MEDS ORDERED: PREGABALIN 75 MG CAP(LYRICA) PO SCH (09:00)
[2022-02-18] MEDS: INSULIN LISPRO (NovoLOG) PER UNIT SC SCH ×2 (09:05→13:19)
[2022-02-18 15:01] VITALS: BP 147/83
[2022-02-18] MEDS ORDERED: LOSARTAN 50MG TABLET PO SCH (21:00)
[2022-02-18] MEDS ORDERED: SERTRALINE HCL 50 MG TAB PO SCH (21:00)
[2022-02-18] MEDS ORDERED: INSULIN LISPRO (NovoLOG) PER UNIT SC SCH (21:00)
[2022-02-18] MEDS ORDERED: LATANOPROST 0.005% OPHTH SOLN 2.5 ML OU SCH (21:00)
== END 2022-02-18 15:02 | disposition home or self-care (01) | DRG 560 ==
LOC: M ED 03:36 → M ED INP 06:11 → ENRESERV 12:48
PROVIDERS: ADMIT Family Medicine; ATTEND Internal Medicine Nephrology
PROC: 0QS7XZZ Reposition Left Upper Femur, External Approach (ICD-10-PCS; principal; 2022-02-18)
DX: T84.021A Dislocation of internal left hip prosthesis, initial encounter (principal); E87.1 Hypo-osmolality and hyponatremia; I25.10 Atherosclerotic heart disease of native coronary artery without angina pectoris; I25.2 Old myocardial infarction; G47.33 Obstructive sleep apnea (adult) (pediatric); J44.9 Chronic obstructive pulmonary disease, unspecified; E11.9 Type 2 diabetes mellitus without complications; I10 Essential (primary) hypertension; K21.9 Gastro-esophageal reflux disease without esophagitis; G25.81 Restless legs syndrome; F32.A Depression, unspecified; M19.90 Unspecified osteoarthritis, unspecified site; Z96.642 Presence of left artificial hip joint; Z98.1 Arthrodesis status; Z90.49 Acquired absence of other specified parts of digestive tract; F17.200 Nicotine dependence, unspecified, uncomplicated; Z79.82 Long term (current) use of aspirin; Z79.84 Long term (current) use of oral hypoglycemic drugs; Z79.899 Other long term (current) drug therapy; D50.9 Iron deficiency anemia, unspecified

== ENCOUNTER 2022-02-26 08:02 | Inpatient (IN) | payer MEDICARE, MEDICAID ==
[~2022-02-26] VITALS: Ht 165.1 cm; Wt 54.5 kg
[~2022-02-26 08:02] MED LIST changes: +med rec comment
[2022-02-26] MEDS ORDERED: NS 1,000 ML IV ONE (08:20)
[2022-02-26 08:36] LABS: BASO % 0.2 % (0.0-1.0); EOS # 0.2 10^3/uL (0.0-0.5); EOS % 2.4 % (0.0-3.0); HEMATOCRIT 31.5 % (36.0-47.0); HEMOGLOBIN 9.7 g/dl (12.0-15.5); LYMPH # 2.1 10^3/uL (1.5-5.0); LYMPH % 20.9 % (24.0-44.0); MEAN CORPUSCULAR HEMOGLOBIN 22.9 pg (27.0-33.0); MEAN CORPUSCULAR HGB CONC 30.8 g/dl (32.0-36.5); MEAN CORPUSCULAR VOLUME 74.5 fl (80.0-96.0); MONO # 0.8 10^3/uL (0.0-0.8); MONO % 8.1 % (2.0-8.0); NEUTROPHILS # 6.9 10^3/uL (1.5-8.5); NEUTROPHILS % 67.8 % (36.0-66.0); PLATELET COUNT, AUTOMATED 396 10^3/uL (150-450); RED BLOOD COUNT 4.23 10^6/uL (4.00-5.40); WHITE BLOOD COUNT 10.1 10^3/uL (4.0-10.0)
[2022-02-26] MEDS: METOPROLOL TART 25 MG TABLET PO SCH ×2 (09:00→21:00)
[2022-02-26] MEDS ORDERED: ONDANSETRON 4MG 2ML VIAL IV ONE (09:00)
[2022-02-26] MEDS ORDERED: MORPHINE 2 MG/ML 1ML VIAL IV ONE ×2 (09:00→09:30)
[2022-02-26 09:10] LABS: ALBUMIN 3.7 GM/DL (3.2-5.2); ALT/SGPT 36 U/L (12-78); BILIRUBIN,DIRECT < 0.1 MG/DL (0.0-0.2); BILIRUBIN,TOTAL 0.3 MG/DL (0.2-1.0); BLOOD UREA NITROGEN 20 MG/DL (7-18); CALCIUM LEVEL 9.1 MG/DL (8.8-10.2); CARBON DIOXIDE LEVEL 27 MEQ/L (21-32); CHLORIDE LEVEL 94 MEQ/L (98-107); CREATININE FOR GFR 0.69 MG/DL (0.55-1.30); ETHYL ALCOHOL (ETHANOL) < 0.003 % (0.000-0.010); GLOMERULAR FILTRATION RATE > 60.0 (>45); GLUCOSE, FASTING 112 MG/DL (70-100); POTASSIUM SERUM 5.2 MEQ/L (3.5-5.1); SODIUM LEVEL 129 MEQ/L (136-145); TOTAL PROTEIN 7.2 GM/DL (6.4-8.2)
[2022-02-26 09:19] LABS: CK-MB VALUE MASS 3.9 NG/ML (<3.6); MB/CK RELATIVE INDEX 1.51 (< OR =4)
[2022-02-26] MEDS ORDERED: TRAZ-252 PO (09:41)
[2022-02-26] MEDS: MORPHINE 2 MG/ML 1ML VIAL IV PRN ×3 (10:16→19:00)
[2022-02-26 10:24] LABS: RSV AMPLIFICATION NEGATIVE (NEGATIVE)
[2022-02-26] MEDS ORDERED: cefTRIAXone SOD 1 GM in D5W MINI-BAG PLUS 50 ML IV ONE (10:40)
[2022-02-26] MEDS ORDERED: LIDOCAINE 2% MDV 20ML VIAL SC ONE (10:45)
[2022-02-26] MEDS ORDERED: MOM 30ML SUSPENSION UDC PO PRN (11:00)
[2022-02-26] MEDS ORDERED: LORA-674 PO (12:08)
[2022-02-26] MEDS ORDERED: FLUTISP NARES (12:08)
[2022-02-26] MEDS ORDERED: HOME MED LIST COMPLETE! XX SCH (12:40)
[2022-02-26] MEDS ORDERED: LIDOCAINE 2% INJ 100 MG/5 ML SYRINGE As Ordered ONE (13:00)
[2022-02-26] MEDS ORDERED: ROCURONIUM BROMIDE 50 MG/5 ML VIAL As Ordered ONE (13:00)
[2022-02-26] MEDS ORDERED: propofoL 200 MG/20 ML VIAL As Ordered ONE (13:00)
[2022-02-26] MEDS ORDERED: fentaNYL 250 MCG/5 ML INJECTION As Ordered ONE (13:01)
[2022-02-26] MEDS ORDERED: MIDAZOLAM INJ 2MG/2ML VIAL (J2250 PER 1MG) As Ordered ONE (13:01)
[2022-02-26] MEDS ORDERED: ALBUTEROL 90 MCG/ACT 8GM HFA INHALER INH PRN (13:40)
[2022-02-26] MEDS ORDERED: FLUTICASONE PROP 0.05% NASAL SPRAY 16 GM (FLONASE) NARES PRN (13:40)
[2022-02-26] MEDS ORDERED: VANCOMYCIN 1000MG/20ML VIAL As Ordered ONE (13:51)
[2022-02-26] MEDS ORDERED: METOCLOPRAMIDE INJ 10MG/2ML VIAL (J2765 PER 1) As Ordered ONE (14:02)
[2022-02-26] MEDS ORDERED: KETOROLAC 60MG 2ML VIAL As Ordered ONE (14:02)
[2022-02-26] MEDS ORDERED: ONDANSETRON 4MG 2ML VIAL As Ordered ONE (14:02)
[2022-02-26] MEDS ORDERED: ACETAMINOPHEN 1000MG 100ML IV BTL (OFIRMEV) (J0131 PER 10MG) As Ordered ONE ×2 (14:02→14:03)
[2022-02-26] MEDS ORDERED: TRANEXAMIC ACID 100 MG/ML 10ML VIAL As Ordered ONE (14:04)
[2022-02-26] MEDS ORDERED: SUGAMMADEX SODIUM 500 MG/5 ML VIAL (BRIDION) As Ordered ONE (14:08)
[2022-02-26] MEDS ORDERED: cefTRIAXone SOD 2 GM VIAL (J0696 PER 250MG) IM SCH (14:15)
[2022-02-26 15:18] LABS: INR 0.94
[2022-02-26] MEDS ORDERED: LR 1,000 ML IV SCH (15:20)
[2022-02-26] MEDS: PREGABALIN 75 MG CAP(LYRICA) PO SCH ×2 (16:00→21:44)
[2022-02-26 18:30] VITALS: BP 115/52
[2022-02-26 19:00] VITALS: BP 137/62
[2022-02-26 20:00] VITALS: BP 121/64
[2022-02-26 21:00] VITALS: BP 139/61
[2022-02-26] MEDS: LOSARTAN 50MG TABLET PO SCH (21:00)
[2022-02-26] MEDS: hydroCHLOROthiazide 12.5 MG CAPSULE PO SCH (21:00)
[2022-02-26] MEDS: LATANOPROST 0.005% OPHTH SOLN 2.5 ML OU SCH (21:41)
[2022-02-26] MEDS: ATORVASTATIN 10 MG TAB PO SCH (21:44)
[2022-02-26] MEDS: SERTRALINE HCL 50 MG TAB PO SCH (21:44)
[2022-02-26] MEDS: LORATADINE 10 MG TAB PO SCH (21:44)
[2022-02-26] MEDS: OMEPRAZOLE 20MG CAP PO SCH (21:45)
[2022-02-26] MEDS: ASPIRIN 81MG ENTERIC TABLET PO SCH (21:46)
[2022-02-26] MEDS: traZODone 50 MG TAB PO SCH (21:46)
[2022-02-26] MEDS: SERTRALINE 100 MG TAB PO SCH (21:46)
[2022-02-26] MEDS: ACETAMINOPHEN TAB 650MG DOSE (2X325MG) PO PRN (21:47)
[2022-02-26 22:00] VITALS: BP 101/62; O2SAT 96
[2022-02-26] MEDS ORDERED: GLUCAGON INJ 1MG VIAL SC PRN (22:50)
[2022-02-26] MEDS ORDERED: DEXTROSE 50% 50 ML SYRINGE IV PRN (22:50)
[2022-02-26] MEDS ORDERED: GLUCOSE 4GM CHEW TABLET PO PRN (22:50)
[2022-02-26 23:00] VITALS: BP 112/59
[2022-02-26] MEDS: INSULIN LISPRO (NovoLOG) PER UNIT SC SCH (23:28)
[2022-02-26] MEDS: NORCO, ANEXSIA 5/325MG TABLET (HYDROcodone/ACETAMINOPHEN) PO PRN (23:31)
[2022-02-27] VITALS (15 sets, daily range): BP systolic 106–163; BP diastolic 61–96; O2SAT 96–99
[2022-02-27 06:17] LABS: HEMATOCRIT 23.4 % (36.0-47.0); MEAN CORPUSCULAR HEMOGLOBIN 23.1 pg (27.0-33.0); MEAN CORPUSCULAR HGB CONC 31.2 g/dl (32.0-36.5); MEAN CORPUSCULAR VOLUME 74.1 fl (80.0-96.0); RED BLOOD COUNT 3.16 10^6/uL (4.00-5.40); WHITE BLOOD COUNT 5.2 10^3/uL (4.0-10.0)
[2022-02-27 06:22] LABS: HEMOGLOBIN 7.3 g/dl (12.0-15.5); PLATELET COUNT, AUTOMATED 289 10^3/uL (150-450)
[2022-02-27 06:38] LABS: BLOOD UREA NITROGEN 14 MG/DL (7-18); CARBON DIOXIDE LEVEL 24 MEQ/L (21-32); CHLORIDE LEVEL 104 MEQ/L (98-107); CREATININE FOR GFR 0.64 MG/DL (0.55-1.30); GLOMERULAR FILTRATION RATE > 60.0 (>45); GLUCOSE, FASTING 93 MG/DL (70-100); MAGNESIUM LEVEL 1.9 MG/DL (1.8-2.4); POTASSIUM SERUM 3.9 MEQ/L (3.5-5.1); SODIUM LEVEL 137 MEQ/L (136-145)
[2022-02-27] MEDS: INSULIN LISPRO (NovoLOG) PER UNIT SC SCH ×4 (07:30→22:30)
[2022-02-27] MEDS: ASPIRIN 81MG ENTERIC TABLET PO SCH (10:09)
[2022-02-27] MEDS: LORATADINE 10 MG TAB PO SCH (10:09)
[2022-02-27] MEDS: SERTRALINE 100 MG TAB PO SCH (10:09)
[2022-02-27] MEDS: OMEPRAZOLE 20MG CAP PO SCH (10:09)
[2022-02-27] MEDS: PREGABALIN 75 MG CAP(LYRICA) PO SCH ×3 (10:09→20:33)
[2022-02-27] MEDS: cefTRIAXone SOD 2 GM in D5W MINI-BAG PLUS 50 ML IV SCH (10:10)
[2022-02-27] MEDS: METOPROLOL TART 25 MG TABLET PO SCH ×2 (10:13→20:33)
[2022-02-27] MEDS: ADVAIR HFA 115/21MCG INHALER INH SCH ×3 (11:24→20:26)
[2022-02-27] MEDS ORDERED: NS 1,000 ML IV SCH (12:45)
[2022-02-27] MEDS ORDERED: FUROSEMIDE 40MG/4ML VIAL (J1940) IV ONE (13:00)
[2022-02-27] MEDS: NORCO, ANEXSIA 5/325MG TABLET (HYDROcodone/ACETAMINOPHEN) PO PRN ×2 (14:25→20:34)
[2022-02-27] MEDS: ACETAMINOPHEN TAB 650MG DOSE (2X325MG) PO PRN (17:54)
[2022-02-27] MEDS: hydroCHLOROthiazide 12.5 MG CAPSULE PO SCH (20:32)
[2022-02-27] MEDS: traZODone 50 MG TAB PO SCH (20:32)
[2022-02-27] MEDS: LOSARTAN 50MG TABLET PO SCH (20:33)
[2022-02-27] MEDS: SERTRALINE HCL 50 MG TAB PO SCH (20:33)
[2022-02-27] MEDS: LATANOPROST 0.005% OPHTH SOLN 2.5 ML OU SCH (20:34)
[2022-02-27] MEDS: ATORVASTATIN 10 MG TAB PO SCH (20:34)
[2022-02-27] MEDS ORDERED: PRAMIPEXOLE 0.25 MG TAB PO ONE (23:00)
[2022-02-28 00:58] LABS: HEMATOCRIT 28.2 % (36.0-47.0)
[2022-02-28 06:00] VITALS: BP 171/85
[2022-02-28 06:00] LABS: HEMATOCRIT 28.5 % (36.0-47.0); HEMOGLOBIN 9.1 g/dl (12.0-15.5); MEAN CORPUSCULAR HEMOGLOBIN 23.8 pg (27.0-33.0); MEAN CORPUSCULAR HGB CONC 31.9 g/dl (32.0-36.5); MEAN CORPUSCULAR VOLUME 74.4 fl (80.0-96.0); PLATELET COUNT, AUTOMATED 275 10^3/uL (150-450); RED BLOOD COUNT 3.83 10^6/uL (4.00-5.40); WHITE BLOOD COUNT 5.8 10^3/uL (4.0-10.0)
[2022-02-28 06:20] LABS: BLOOD UREA NITROGEN 10 MG/DL (7-18); CALCIUM LEVEL 9.3 MG/DL (8.8-10.2); CARBON DIOXIDE LEVEL 32 MEQ/L (21-32); CHLORIDE LEVEL 102 MEQ/L (98-107); CREATININE FOR GFR 0.52 MG/DL (0.55-1.30); GLOMERULAR FILTRATION RATE > 60.0 (>45); GLUCOSE, FASTING 131 MG/DL (70-100); POTASSIUM SERUM 3.9 MEQ/L (3.5-5.1); SODIUM LEVEL 136 MEQ/L (136-145)
[2022-02-28] MEDS: ADVAIR HFA 115/21MCG INHALER INH SCH ×2 (07:29→20:41)
[2022-02-28 09:00] VITALS: O2SAT 99
[2022-02-28] MEDS: INSULIN LISPRO (NovoLOG) PER UNIT SC SCH ×4 (09:22→21:00)
[2022-02-28] MEDS: ASPIRIN 81MG ENTERIC TABLET PO SCH (09:22)
[2022-02-28] MEDS: OMEPRAZOLE 20MG CAP PO SCH (09:23)
[2022-02-28] MEDS: SERTRALINE 100 MG TAB PO SCH (09:23)
[2022-02-28] MEDS: LORATADINE 10 MG TAB PO SCH (09:23)
[2022-02-28] MEDS: PREGABALIN 75 MG CAP(LYRICA) PO SCH ×3 (09:23→20:32)
[2022-02-28] MEDS: METOPROLOL TART 25 MG TABLET PO SCH ×2 (09:26→20:33)
[2022-02-28] MEDS: cefTRIAXone SOD 2 GM in D5W MINI-BAG PLUS 50 ML IV SCH (09:27)
[2022-02-28] MEDS: NORCO, ANEXSIA 5/325MG TABLET (HYDROcodone/ACETAMINOPHEN) PO PRN (09:32)
[2022-02-28 10:00] VITALS: BP 130/78
[2022-02-28] MEDS: MORPHINE 2 MG/ML 1ML VIAL IV PRN ×2 (12:57→20:34)
[2022-02-28 14:04] VITALS: BP 143/61
[2022-02-28] MEDS: ACETAMINOPHEN TAB 650MG DOSE (2X325MG) PO PRN (18:37)
[2022-02-28] MEDS: ATORVASTATIN 10 MG TAB PO SCH (20:31)
[2022-02-28] MEDS: SERTRALINE HCL 50 MG TAB PO SCH (20:31)
[2022-02-28] MEDS: traZODone 50 MG TAB PO SCH (20:32)
[2022-02-28] MEDS: hydroCHLOROthiazide 12.5 MG CAPSULE PO SCH (20:33)
[2022-02-28] MEDS: LATANOPROST 0.005% OPHTH SOLN 2.5 ML OU SCH (20:33)
[2022-02-28] MEDS: LOSARTAN 50MG TABLET PO SCH (20:33)
[2022-02-28] MEDS ORDERED: PRAMIPEXOLE 0.25 MG TAB PO SCH (21:00)
[2022-02-28 22:00] VITALS: BP 140/59
[2022-03-01 06:00] VITALS: BP 153/84
[2022-03-01 06:06] LABS: HEMATOCRIT 31.8 % (36.0-47.0); HEMOGLOBIN 10.1 g/dl (12.0-15.5); MEAN CORPUSCULAR HEMOGLOBIN 23.8 pg (27.0-33.0); MEAN CORPUSCULAR HGB CONC 31.8 g/dl (32.0-36.5); MEAN CORPUSCULAR VOLUME 74.8 fl (80.0-96.0); PLATELET COUNT, AUTOMATED 343 10^3/uL (150-450); RED BLOOD COUNT 4.25 10^6/uL (4.00-5.40); WHITE BLOOD COUNT 5.5 10^3/uL (4.0-10.0)
[2022-03-01 06:40] LABS: BLOOD UREA NITROGEN 14 MG/DL (7-18); CALCIUM LEVEL 9.5 MG/DL (8.8-10.2); CARBON DIOXIDE LEVEL 31 MEQ/L (21-32); CHLORIDE LEVEL 100 MEQ/L (98-107); CREATININE FOR GFR 0.57 MG/DL (0.55-1.30); GLOMERULAR FILTRATION RATE > 60.0 (>45); GLUCOSE, FASTING 118 MG/DL (70-100); MAGNESIUM LEVEL 1.8 MG/DL (1.8-2.4); PHOSPHORUS LEVEL 4.1 MG/DL (2.5-4.9); POTASSIUM SERUM 4.3 MEQ/L (3.5-5.1); SODIUM LEVEL 135 MEQ/L (136-145)
[2022-03-01] MEDS: ADVAIR HFA 115/21MCG INHALER INH SCH (07:49)
[2022-03-01] MEDS: INSULIN LISPRO (NovoLOG) PER UNIT SC SCH ×2 (08:18→12:59)
[2022-03-01] MEDS: SERTRALINE 100 MG TAB PO SCH (08:18)
[2022-03-01] MEDS: LORATADINE 10 MG TAB PO SCH (08:18)
[2022-03-01] MEDS: ASPIRIN 81MG ENTERIC TABLET PO SCH (08:18)
[2022-03-01 08:19] VITALS: BP 153/84
[2022-03-01] MEDS: PREGABALIN 75 MG CAP(LYRICA) PO SCH (08:19)
[2022-03-01] MEDS: METOPROLOL TART 25 MG TABLET PO SCH (08:19)
[2022-03-01] MEDS: OMEPRAZOLE 20MG CAP PO SCH (08:19)
[2022-03-01] MEDS: NORCO, ANEXSIA 5/325MG TABLET (HYDROcodone/ACETAMINOPHEN) PO PRN (08:30)
[2022-03-01] MEDS: ACETAMINOPHEN TAB 650MG DOSE (2X325MG) PO PRN (13:00)
== END 2022-03-01 13:50 | disposition home or self-care (01) | DRG 605 ==
LOC: M ED 08:02 → EDBD 08:02 → M ED INP 10:59 → M MS5PR 18:05
PROVIDERS: ADMIT Internal Medicine; ATTEND Internal Medicine
PROC: 0Y9D00Z Drainage of Left Upper Leg with Drainage Device, Open Approach (ICD-10-PCS; principal; 2022-02-26 12:27)
DX: S70.02XA Contusion of left hip, initial encounter (principal); E87.1 Hypo-osmolality and hyponatremia; N39.0 Urinary tract infection, site not specified; T84.091D Other mechanical complication of internal left hip prosthesis, subsequent encounter; I25.10 Atherosclerotic heart disease of native coronary artery without angina pectoris; Z95.5 Presence of coronary angioplasty implant and graft; I25.2 Old myocardial infarction; G47.33 Obstructive sleep apnea (adult) (pediatric); J44.9 Chronic obstructive pulmonary disease, unspecified; E11.9 Type 2 diabetes mellitus without complications; M19.90 Unspecified osteoarthritis, unspecified site; I10 Essential (primary) hypertension; K21.9 Gastro-esophageal reflux disease without esophagitis; G25.81 Restless legs syndrome; F32.A Depression, unspecified; Z96.642 Presence of left artificial hip joint; Z90.49 Acquired absence of other specified parts of digestive tract; Z90.79 Acquired absence of other genital organ(s); M43.22 Fusion of spine, cervical region; F17.210 Nicotine dependence, cigarettes, uncomplicated; D64.9 Anemia, unspecified; Z20.822 Contact with and (suspected) exposure to COVID-19; Z79.82 Long term (current) use of aspirin; Z79.84 Long term (current) use of oral hypoglycemic drugs; Z79.899 Other long term (current) drug therapy; W01.0XXA Fall on same level from slipping, tripping and stumbling without subsequent striking against object, initial encounter; Y92.9 Unspecified place or not applicable; E78.5 Hyperlipidemia, unspecified

== ENCOUNTER 2022-03-14 11:37 | Inpatient (IN) | payer MEDICARE, MEDICAID ==
[~2022-03-14] VITALS: Ht 165.1 cm; Wt 60.8 kg
[~2022-03-14 11:37] MED LIST changes: +FLUTISP NARES; +LORA-674 PO
[2022-03-14 12:58] LABS: HEMOGLOBIN 10.2 g/dl (12.0-15.5); MEAN CORPUSCULAR HEMOGLOBIN 23.8 pg (27.0-33.0); MEAN CORPUSCULAR HGB CONC 30.9 g/dl (32.0-36.5); MEAN CORPUSCULAR VOLUME 77.1 fl (80.0-96.0); PLATELET COUNT, AUTOMATED 364 10^3/uL (150-450); RED BLOOD COUNT 4.28 10^6/uL (4.00-5.40); WHITE BLOOD COUNT 9.1 10^3/uL (4.0-10.0)
[2022-03-14] MEDS ORDERED: ONDANSETRON 4MG 2ML VIAL IV ONE (13:15)
[2022-03-14] MEDS: MORPHINE 4 MG/ML 1ML VIAL/SYRINGE IV PRN ×3 (13:16→19:00)
[2022-03-14 13:36] LABS: RSV AMPLIFICATION NEGATIVE (NEGATIVE)
[2022-03-14 13:48] LABS: BLOOD UREA NITROGEN 12 MG/DL (7-18); CALCIUM LEVEL 9.2 MG/DL (8.8-10.2); CARBON DIOXIDE LEVEL 28 MEQ/L (21-32); CHLORIDE LEVEL 97 MEQ/L (98-107); CREATININE FOR GFR 0.55 MG/DL (0.55-1.30); GLOMERULAR FILTRATION RATE > 60.0 (>45); GLUCOSE, FASTING 93 MG/DL (70-100); POTASSIUM SERUM 5.4 MEQ/L (3.5-5.1); SODIUM LEVEL 130 MEQ/L (136-145)
[2022-03-14] MEDS ORDERED: HYDROMORPHONE HCL 0.5 MG/ 0.5 ML SYRINGE (J1170 PER 1) IV ONE (14:50)
[2022-03-14] MEDS ORDERED: NS 1,000 ML IV SCH ×2 (17:25→18:10)
[2022-03-14] MEDS: propofoL 200 MG/20 ML VIAL IV.PROC PRN ×3 (17:33→17:35)
[2022-03-14] MEDS: INSULIN LISPRO (NovoLOG) PER UNIT SC SCH (18:00)
[2022-03-14] MEDS ORDERED: HYDROMORPHONE HCL 0.5 MG/ 0.5 ML SYRINGE (J1170 PER 1) IV PRN (18:35)
[2022-03-14] MEDS ORDERED: DICL1GEL3 TOP (18:42)
[2022-03-14] MEDS ORDERED: HOME MED LIST COMPLETE! XX SCH (18:45)
[2022-03-14] MEDS ORDERED: NALOXONE INJ 0.4MG/1ML VIAL (J2310 PER 1MG) IV PRN (18:50)
[2022-03-14] MEDS ORDERED: GLUCOSE 4GM CHEW TABLET PO PRN (18:50)
[2022-03-14] MEDS ORDERED: DEXTROSE 50% 50 ML SYRINGE IV PRN (18:50)
[2022-03-14] MEDS ORDERED: GLUCAGON INJ 1MG VIAL SC PRN (18:50)
[2022-03-14] MEDS ORDERED: hydrALAZINE 20MG/ML 1ML VIAL (J0360 PER 20MG) IV PRN (19:10)
[2022-03-14] MEDS ORDERED: ALBUTEROL 90 MCG/ACT 8GM HFA INHALER INH PRN (19:15)
[2022-03-14] MEDS ORDERED: FLUTICASONE PROP 0.05% NASAL SPRAY 16 GM (FLONASE) NARES PRN (19:15)
[2022-03-14] MEDS ORDERED: ONDANSETRON 4MG 2ML VIAL As Ordered ONE (19:33)
[2022-03-14] MEDS ORDERED: LIDOCAINE 2% 100MG/5ML SDV (FOR ANES.) As Ordered ONE (19:33)
[2022-03-14] MEDS ORDERED: propofoL 200 MG/20 ML VIAL As Ordered ONE (19:33)
[2022-03-14] MEDS ORDERED: MIDAZOLAM INJ 2MG/2ML VIAL (J2250 PER 1MG) As Ordered ONE (19:34)
[2022-03-14] MEDS ORDERED: dexameTHASONE 4 MG/ML 1ML VIAL (J1100 PER 1MG) As Ordered ONE (19:34)
[2022-03-14] MEDS ORDERED: fentaNYL 100 MCG/2 ML INJECTION As Ordered ONE (19:34)
[2022-03-14 19:39] LABS: INR 0.96; PROTHROMBIN TIME 13.2 SECONDS (12.7-14.5)
[2022-03-14 19:40] LABS: PARTIAL THROMBOPLASTIN TIME 31.4 SECONDS (25.9-37.0)
[2022-03-14] MEDS ORDERED: ePHEDrine SULFATE 25 MG/5 ML(5MG/ML) SYRINGE As Ordered ONE (20:11)
[2022-03-14] MEDS ORDERED: fentaNYL 100 MCG/2 ML INJECTION IV PRN (20:35)
[2022-03-14] MEDS ORDERED: ONDANSETRON 4MG 2ML VIAL IV PRN ×2 (20:35→22:05)
[2022-03-14] MEDS ORDERED: LR 1,000 ML IV SCH (20:35)
[2022-03-14] MEDS ORDERED: oxyCODONE 5MG TAB PO PRN (20:35)
[2022-03-14] MEDS ORDERED: MORPHINE 2 MG/ML 1ML VIAL IV PRN (22:05)
[2022-03-14] MEDS ORDERED: traMADol 50 MG TAB PO PRN (22:05)
[2022-03-14] MEDS ORDERED: MORPHINE 4 MG/ML 1ML VIAL/SYRINGE IV PRN (22:05)
[2022-03-14] MEDS ORDERED: PERCOCET 5MG/325MG TAB PO PRN (22:05)
[2022-03-14] MEDS ORDERED: ACETAMINOPHEN TAB 650MG DOSE (2X325MG) PO PRN (22:05)
[2022-03-14 22:45] VITALS: BP 166/74
[2022-03-14] MEDS: LR 1,000 ML IV SCH (22:45)
[2022-03-14 23:15] VITALS: BP 181/83
[2022-03-15] VITALS (17 sets, daily range): BP systolic 169–181; BP diastolic 74–81; O2SAT 95–100
[2022-03-15] MEDS: INSULIN LISPRO (NovoLOG) PER UNIT SC SCH ×4 (00:21→17:30)
[2022-03-15] MEDS: LR 1,000 ML IV SCH ×2 (00:27→06:52)
[2022-03-15] MEDS: ADVAIR HFA 115/21MCG INHALER INH SCH ×3 (01:09→19:26)
[2022-03-15] MEDS: MORPHINE 4 MG/ML 1ML VIAL/SYRINGE IV PRN (02:01)
[2022-03-15 05:31] LABS: HEMATOCRIT 31.4 % (36.0-47.0); HEMOGLOBIN 9.6 g/dl (12.0-15.5); MEAN CORPUSCULAR HEMOGLOBIN 23.9 pg (27.0-33.0); MEAN CORPUSCULAR HGB CONC 30.6 g/dl (32.0-36.5); MEAN CORPUSCULAR VOLUME 78.1 fl (80.0-96.0); PLATELET COUNT, AUTOMATED 318 10^3/uL (150-450); RED BLOOD COUNT 4.02 10^6/uL (4.00-5.40); WHITE BLOOD COUNT 4.8 10^3/uL (4.0-10.0)
[2022-03-15 05:58] LABS: ALBUMIN 3.4 GM/DL (3.2-5.2); ALT/SGPT 104 U/L (12-78); BILIRUBIN,TOTAL 0.5 MG/DL (0.2-1.0); BLOOD UREA NITROGEN 9 MG/DL (7-18); CALCIUM LEVEL 8.9 MG/DL (8.8-10.2); CARBON DIOXIDE LEVEL 27 MEQ/L (21-32); CHLORIDE LEVEL 104 MEQ/L (98-107); CREATININE FOR GFR 0.51 MG/DL (0.55-1.30); GLOMERULAR FILTRATION RATE > 60.0 (>45); GLUCOSE, FASTING 128 MG/DL (70-100); POTASSIUM SERUM 4.2 MEQ/L (3.5-5.1); SODIUM LEVEL 139 MEQ/L (136-145); TOTAL PROTEIN 6.2 GM/DL (6.4-8.2)
[2022-03-15] MEDS: NICOTINE 21MG/24HR 1 EA TRANSDERMAL TD SCH (08:17)
[2022-03-15] MEDS: PREGABALIN 75 MG CAP(LYRICA) PO SCH ×3 (08:18→20:31)
[2022-03-15] MEDS: SERTRALINE 100 MG TAB PO SCH (08:18)
[2022-03-15] MEDS: PERCOCET 5MG/325MG TAB PO PRN ×3 (08:18→20:54)
[2022-03-15] MEDS: ASPIRIN 81MG ENTERIC TABLET PO SCH ×2 (08:18→20:32)
[2022-03-15] MEDS: LORATADINE 10 MG TAB PO SCH (08:18)
[2022-03-15] MEDS: METOPROLOL TART 25 MG TABLET PO SCH ×2 (08:23→20:31)
[2022-03-15] MEDS ORDERED: MAALOX 30 ML SUSP *UDC PO PRN (09:15)
[2022-03-15] MEDS: PANTOPRAZOLE 40MG TAB (PROTONIX) PO SCH (09:45)
[2022-03-15] MEDS ORDERED: LOSARTAN 50MG TABLET PO SCH (21:00)
[2022-03-15] MEDS ORDERED: hydroCHLOROthiazide 12.5 MG CAPSULE PO SCH (21:00)
[2022-03-15] MEDS ORDERED: traZODone 50 MG TAB PO SCH (21:00)
[2022-03-15] MEDS ORDERED: SERTRALINE HCL 50 MG TAB PO SCH (21:00)
[2022-03-15] MEDS ORDERED: LATANOPROST 0.005% OPHTH SOLN 2.5 ML OU SCH (21:00)
[2022-03-15] MEDS ORDERED: ATORVASTATIN 10 MG TAB PO SCH (21:00)
[2022-03-15] MEDS ORDERED: INSULIN LISPRO (NovoLOG) PER UNIT SC SCH (21:00)
[2022-03-16] VITALS (9 sets, daily range): BP systolic 134–180; BP diastolic 66–78; O2SAT 95–100
[2022-03-16] MEDS: PERCOCET 5MG/325MG TAB PO PRN ×2 (03:39→09:26)
[2022-03-16 05:39] LABS: HEMATOCRIT 32.2 % (36.0-47.0); HEMOGLOBIN 9.7 g/dl (12.0-15.5); MEAN CORPUSCULAR HEMOGLOBIN 23.2 pg (27.0-33.0); MEAN CORPUSCULAR HGB CONC 30.1 g/dl (32.0-36.5); PLATELET COUNT, AUTOMATED 286 10^3/uL (150-450); RED BLOOD COUNT 4.18 10^6/uL (4.00-5.40); WHITE BLOOD COUNT 6.3 10^3/uL (4.0-10.0)
[2022-03-16 06:20] LABS: ALBUMIN 3.4 GM/DL (3.2-5.2); ALT/SGPT 67 U/L (12-78); BILIRUBIN,TOTAL 0.3 MG/DL (0.2-1.0); BLOOD UREA NITROGEN 10 MG/DL (7-18); CALCIUM LEVEL 9.4 MG/DL (8.8-10.2); CARBON DIOXIDE LEVEL 30 MEQ/L (21-32); CHLORIDE LEVEL 104 MEQ/L (98-107); CREATININE FOR GFR 0.59 MG/DL (0.55-1.30); GLOMERULAR FILTRATION RATE > 60.0 (>45); GLUCOSE, FASTING 122 MG/DL (70-100); POTASSIUM SERUM 4.2 MEQ/L (3.5-5.1); SODIUM LEVEL 136 MEQ/L (136-145); TOTAL PROTEIN 6.7 GM/DL (6.4-8.2)
[2022-03-16] MEDS: ADVAIR HFA 115/21MCG INHALER INH SCH (08:00)
[2022-03-16] MEDS: ASPIRIN 81MG ENTERIC TABLET PO SCH (09:26)
[2022-03-16] MEDS: PREGABALIN 75 MG CAP(LYRICA) PO SCH (09:26)
[2022-03-16] MEDS: LORATADINE 10 MG TAB PO SCH (09:26)
[2022-03-16] MEDS: PANTOPRAZOLE 40MG TAB (PROTONIX) PO SCH (09:26)
[2022-03-16] MEDS: SERTRALINE 100 MG TAB PO SCH (09:26)
[2022-03-16] MEDS: INSULIN LISPRO (NovoLOG) PER UNIT SC SCH ×2 (09:26→13:26)
[2022-03-16] MEDS: METOPROLOL TART 25 MG TABLET PO SCH (09:27)
[2022-03-16] MEDS: NICOTINE 21MG/24HR 1 EA TRANSDERMAL TD SCH (09:28)
== END 2022-03-16 14:30 | disposition home or self-care (01) | DRG 559 ==
LOC: M ED 11:37 → M ED INP 18:10 → M PCU 22:39
PROVIDERS: ADMIT Internal Medicine; ATTEND Internal Medicine
PROC: 0QS7XZZ Reposition Left Upper Femur, External Approach (ICD-10-PCS; principal; 2022-03-14 19:30)
DX: T84.021A Dislocation of internal left hip prosthesis, initial encounter (principal); J96.01 Acute respiratory failure with hypoxia; E87.1 Hypo-osmolality and hyponatremia; Z96.642 Presence of left artificial hip joint; I25.10 Atherosclerotic heart disease of native coronary artery without angina pectoris; I25.2 Old myocardial infarction; G47.33 Obstructive sleep apnea (adult) (pediatric); J44.9 Chronic obstructive pulmonary disease, unspecified; E11.9 Type 2 diabetes mellitus without complications; I16.0 Hypertensive urgency; I10 Essential (primary) hypertension; F17.200 Nicotine dependence, unspecified, uncomplicated; K21.9 Gastro-esophageal reflux disease without esophagitis; G25.81 Restless legs syndrome; F32.A Depression, unspecified; M19.90 Unspecified osteoarthritis, unspecified site; Y83.1 Surgical operation with implant of artificial internal device as the cause of abnormal reaction of the patient, or of later complication, without mention of misadventure at the time of the procedure; Z98.1 Arthrodesis status; Z90.49 Acquired absence of other specified parts of digestive tract; Z79.82 Long term (current) use of aspirin; Z79.899 Other long term (current) drug therapy

== ENCOUNTER 2022-03-25 20:24 | Day surgery (SDC) | payer MEDICARE, MEDICAID ==
[~2022-03-25] VITALS: Ht 165.1 cm; Wt 57.9 kg
[~2022-03-25 20:24] MED LIST changes: +DICL1GEL3 TOP
[2022-03-25] MEDS: HYDROMORPHONE HCL 0.5 MG/ 0.5 ML SYRINGE (J1170 PER 1) IV PRN (20:53)
[2022-03-25] MEDS ORDERED: diazePAM 10MG/2ML SYRINGE (J3360 PER 5MG) IV ONE (21:15)
[2022-03-25 21:22] LABS: BASO % 0.3 % (0.0-1.0); EOS # 0.2 10^3/uL (0.0-0.5); EOS % 2.7 % (0.0-3.0); HEMATOCRIT 33.9 % (36.0-47.0); HEMOGLOBIN 10.4 g/dl (12.0-15.5); LYMPH # 2.1 10^3/uL (1.5-5.0); LYMPH % 31.8 % (24.0-44.0); MEAN CORPUSCULAR HEMOGLOBIN 23.5 pg (27.0-33.0); MEAN CORPUSCULAR HGB CONC 30.7 g/dl (32.0-36.5); MEAN CORPUSCULAR VOLUME 76.7 fl (80.0-96.0); MONO # 0.7 10^3/uL (0.0-0.8); MONO % 10.2 % (2.0-8.0); NEUTROPHILS # 3.6 10^3/uL (1.5-8.5); NEUTROPHILS % 54.7 % (36.0-66.0); PLATELET COUNT, AUTOMATED 300 10^3/uL (150-450); RED BLOOD COUNT 4.42 10^6/uL (4.00-5.40); WHITE BLOOD COUNT 6.6 10^3/uL (4.0-10.0)
[2022-03-25 21:49] LABS: ALBUMIN 3.5 GM/DL (3.2-5.2); ALT/SGPT 17 U/L (12-78); BILIRUBIN,DIRECT < 0.1 MG/DL (0.0-0.2); BILIRUBIN,TOTAL 0.1 MG/DL (0.2-1.0); BLOOD UREA NITROGEN 15 MG/DL (7-18); CALCIUM LEVEL 9.1 MG/DL (8.8-10.2); CARBON DIOXIDE LEVEL 27 MEQ/L (21-32); CHLORIDE LEVEL 104 MEQ/L (98-107); GLOMERULAR FILTRATION RATE > 60.0 (>45); GLUCOSE, FASTING 100 MG/DL (70-100); POTASSIUM SERUM 4.3 MEQ/L (3.5-5.1); SODIUM LEVEL 135 MEQ/L (136-145); TOTAL PROTEIN 6.5 GM/DL (6.4-8.2)
[2022-03-25 21:57] LABS: RSV AMPLIFICATION NEGATIVE (NEGATIVE)
[2022-03-25] MEDS ORDERED: MIDAZOLAM INJ 2MG/2ML VIAL (J2250 PER 1MG) As Ordered ONE (22:54)
[2022-03-25] MEDS ORDERED: fentaNYL 100 MCG/2 ML INJECTION As Ordered ONE (22:54)
[2022-03-25] MEDS ORDERED: propofoL 200 MG/20 ML VIAL As Ordered ONE (22:55)
[2022-03-25] MEDS ORDERED: dexameTHASONE 4 MG/ML 1ML VIAL (J1100 PER 1MG) As Ordered ONE (22:55)
[2022-03-25] MEDS ORDERED: LIDOCAINE 2% 100MG/5ML SDV (FOR ANES.) As Ordered ONE (22:55)
[2022-03-25] MEDS ORDERED: ONDANSETRON 4MG 2ML VIAL As Ordered ONE (22:55)
[2022-03-25] MEDS ORDERED: MED REC COMMENT (23:01)
[2022-03-25] MEDS ORDERED: HOME MED LIST COMPLETE! XX SCH (23:05)
[2022-03-25] MEDS ORDERED: GLYCOPYRROLATE INJ 0.2 MG/ML 2 ML VIAL As Ordered ONE (23:26)
[2022-03-25] MEDS ORDERED: ePHEDrine SULFATE 25 MG/5 ML(5MG/ML) SYRINGE As Ordered ONE (23:26)
[2022-03-25] MEDS ORDERED: ROCURONIUM BROMIDE 50 MG/5 ML VIAL As Ordered ONE (23:30)
[2022-03-25] MEDS ORDERED: SUGAMMADEX SODIUM 500 MG/5 ML VIAL (BRIDION) As Ordered ONE (23:36)
[2022-03-26] VITALS (12 sets, daily range): BP systolic 93–156; BP diastolic 51–94
[2022-03-26] MEDS ORDERED: ONDANSETRON 4MG 2ML VIAL IV PRN (00:20)
[2022-03-26] MEDS ORDERED: LR 1,000 ML IV SCH (00:20)
[2022-03-26] MEDS ORDERED: HYDROMORPHONE HCL 0.5 MG/ 0.5 ML SYRINGE (J1170 PER 1) IV PRN (00:20)
[2022-03-26] MEDS ORDERED: fentaNYL 100 MCG/2 ML INJECTION IV PRN (00:20)
[2022-03-26] MEDS ORDERED: oxyCODONE 5MG TAB PO PRN (00:20)
[2022-03-26] MEDS: hydrALAZINE 20MG/ML 1ML VIAL (J0360 PER 20MG) IV PRN ×3 (00:24→00:38)
[2022-03-26] MEDS ORDERED: GLUCAGON INJ 1MG VIAL SC PRN (02:25)
[2022-03-26] MEDS ORDERED: GLUCOSE 4GM CHEW TABLET PO PRN (02:25)
[2022-03-26] MEDS ORDERED: DEXTROSE 50% 50 ML SYRINGE IV PRN (02:25)
[2022-03-26] MEDS ORDERED: ALBUTEROL 90 MCG/ACT 8GM HFA INHALER INH PRN (02:45)
[2022-03-26] MEDS ORDERED: FLUTICASONE PROP 0.05% NASAL SPRAY 16 GM (FLONASE) NARES PRN (02:45)
[2022-03-26] MEDS: carisoprodoL 350 MG TAB PO PRN ×2 (03:15→17:29)
[2022-03-26 04:48] LABS: BASO % 0.3 % (0.0-1.0); EOS % 0.3 % (0.0-3.0); HEMATOCRIT 34.9 % (36.0-47.0); HEMOGLOBIN 10.7 g/dl (12.0-15.5); LYMPH # 0.9 10^3/uL (1.5-5.0); LYMPH % 12.6 % (24.0-44.0); MEAN CORPUSCULAR HEMOGLOBIN 23.7 pg (27.0-33.0); MEAN CORPUSCULAR HGB CONC 30.7 g/dl (32.0-36.5); MEAN CORPUSCULAR VOLUME 77.4 fl (80.0-96.0); MONO # 0.1 10^3/uL (0.0-0.8); MONO % 1.7 % (2.0-8.0); NEUTROPHILS # 6.1 10^3/uL (1.5-8.5); NEUTROPHILS % 84.7 % (36.0-66.0); PLATELET COUNT, AUTOMATED 308 10^3/uL (150-450); RED BLOOD COUNT 4.51 10^6/uL (4.00-5.40); WHITE BLOOD COUNT 7.2 10^3/uL (4.0-10.0)
[2022-03-26 05:22] LABS: BLOOD UREA NITROGEN 13 MG/DL (7-18); CARBON DIOXIDE LEVEL 29 MEQ/L (21-32); CHLORIDE LEVEL 102 MEQ/L (98-107); GLOMERULAR FILTRATION RATE > 60.0 (>45); GLUCOSE, FASTING 161 MG/DL (70-100); MAGNESIUM LEVEL 1.8 MG/DL (1.8-2.4); SODIUM LEVEL 135 MEQ/L (136-145)
[2022-03-26] MEDS: ADVAIR HFA 115/21MCG INHALER INH SCH ×2 (07:38→20:20)
[2022-03-26] MEDS: LORATADINE 10 MG TAB PO SCH (08:16)
[2022-03-26] MEDS: PREGABALIN 75 MG CAP(LYRICA) PO SCH ×3 (08:16→21:33)
[2022-03-26] MEDS: SERTRALINE 100 MG TAB PO SCH (08:20)
[2022-03-26] MEDS: METOPROLOL TART 25 MG TABLET PO SCH ×2 (08:20→21:32)
[2022-03-26] MEDS: INSULIN LISPRO (NovoLOG) PER UNIT SC SCH ×3 (08:21→17:28)
[2022-03-26] MEDS ORDERED: PANTOPRAZOLE 20 MG TAB PO SCH (09:00)
[2022-03-26] MEDS ORDERED: LIDOCAINE 4% CREAM 5GM (LMX4) TOP PRN (10:10)
[2022-03-26] MEDS: ASPIRIN 81MG ENTERIC TABLET PO SCH (10:26)
[2022-03-26] MEDS: HYDROMORPHONE HCL 0.5 MG/ 0.5 ML SYRINGE (J1170 PER 1) IV PRN (10:27)
[2022-03-26] MEDS: NORCO, ANEXSIA 5/325MG TABLET (HYDROcodone/ACETAMINOPHEN) PO PRN ×2 (12:58→18:59)
[2022-03-26] MEDS ORDERED: ATORVASTATIN 10 MG TAB PO SCH (21:00)
[2022-03-26] MEDS ORDERED: INSULIN LISPRO (NovoLOG) PER UNIT SC SCH (21:00)
[2022-03-26] MEDS ORDERED: LATANOPROST 0.005% OPHTH SOLN 2.5 ML OU SCH (21:00)
[2022-03-26] MEDS ORDERED: traZODone 50 MG TAB PO SCH (21:00)
[2022-03-26] MEDS ORDERED: SERTRALINE HCL 50 MG TAB PO SCH (21:00)
[2022-03-27] VITALS: BP 150/74
[2022-03-27] MEDS ORDERED: oxyCODONE 5MG TAB PO PRN (00:10)
[2022-03-27] MEDS ORDERED: GI COCKTAIL 50ML BTL(HYOSCYAMINE/MAALOX/LIDOCAINE VISCOUS)(1:3:1) PO ONE (02:00)
[2022-03-27 04:00] VITALS: BP 159/97
[2022-03-27 06:25] LABS: BASO % 0.3 % (0.0-1.0); EOS # 0.2 10^3/uL (0.0-0.5); EOS % 2.5 % (0.0-3.0); HEMATOCRIT 33.4 % (36.0-47.0); HEMOGLOBIN 10.2 g/dl (12.0-15.5); LYMPH # 2.2 10^3/uL (1.5-5.0); LYMPH % 36.1 % (24.0-44.0); MEAN CORPUSCULAR HEMOGLOBIN 23.6 pg (27.0-33.0); MEAN CORPUSCULAR HGB CONC 30.5 g/dl (32.0-36.5); MEAN CORPUSCULAR VOLUME 77.1 fl (80.0-96.0); MONO # 0.5 10^3/uL (0.0-0.8); MONO % 8.8 % (2.0-8.0); NEUTROPHILS # 3.1 10^3/uL (1.5-8.5); PLATELET COUNT, AUTOMATED 299 10^3/uL (150-450); RED BLOOD COUNT 4.33 10^6/uL (4.00-5.40)
[2022-03-27 07:00] LABS: BLOOD UREA NITROGEN 11 MG/DL (7-18); CALCIUM LEVEL 9.5 MG/DL (8.8-10.2); CARBON DIOXIDE LEVEL 30 MEQ/L (21-32); CHLORIDE LEVEL 104 MEQ/L (98-107); CREATININE FOR GFR 0.52 MG/DL (0.55-1.30); GLOMERULAR FILTRATION RATE > 60.0 (>45); GLUCOSE, FASTING 94 MG/DL (70-100); SODIUM LEVEL 137 MEQ/L (136-145)
[2022-03-27] MEDS: INSULIN LISPRO (NovoLOG) PER UNIT SC SCH (07:24)
[2022-03-27] MEDS: ADVAIR HFA 115/21MCG INHALER INH SCH (08:07)
[2022-03-27] MEDS: ASPIRIN 81MG ENTERIC TABLET PO SCH (08:23)
[2022-03-27] MEDS: PREGABALIN 75 MG CAP(LYRICA) PO SCH (08:23)
[2022-03-27 08:24] VITALS: BP 138/78
[2022-03-27] MEDS: SERTRALINE 100 MG TAB PO SCH (08:24)
[2022-03-27] MEDS: METOPROLOL TART 25 MG TABLET PO SCH (08:24)
[2022-03-27] MEDS: LORATADINE 10 MG TAB PO SCH (08:25)
[2022-03-27] MEDS ORDERED: PANTOPRAZOLE 40MG TAB (PROTONIX) PO SCH (09:00)
[2022-03-27 12:00] VITALS: BP 166/73
[2022-03-27 12:20] VITALS: BP 142/70
== END 2022-03-27 12:29 | disposition home health service (06) ==
LOC: M ED 20:24 → EDBD 20:24 → M SDC 22:44 → M 4MAIN 03-26 00:57 → M SDC 03-27 12:29
PROVIDERS: ATTEND Orthopaedic Surgery
DX: T84.021A Dislocation of internal left hip prosthesis, initial encounter (principal); Y79.2 Prosthetic and other implants, materials and accessory orthopedic devices associated with adverse incidents; R29.6 Repeated falls; I45.10 Unspecified right bundle-branch block; E11.9 Type 2 diabetes mellitus without complications; I10 Essential (primary) hypertension; I25.10 Atherosclerotic heart disease of native coronary artery without angina pectoris; I25.2 Old myocardial infarction; G47.33 Obstructive sleep apnea (adult) (pediatric); J44.9 Chronic obstructive pulmonary disease, unspecified; F32.A Depression, unspecified; K21.9 Gastro-esophageal reflux disease without esophagitis; G25.81 Restless legs syndrome; M19.90 Unspecified osteoarthritis, unspecified site; D64.9 Anemia, unspecified; R33.9 Retention of urine, unspecified; T25.022A Burn of unspecified degree of left foot, initial encounter; T31.0 Burns involving less than 10% of body surface; F17.210 Nicotine dependence, cigarettes, uncomplicated; Z95.1 Presence of aortocoronary bypass graft; Z79.899 Other long term (current) drug therapy; Z79.82 Long term (current) use of aspirin; Z79.84 Long term (current) use of oral hypoglycemic drugs; Z96.642 Presence of left artificial hip joint
CPT/HCPCS: 27266; 36415; 71045; 73502; 76000; 80048; 80076; 83735; 83880; 85025; 87631; 93005; 93041; 94640; 94760; 96374; 96375; 96376; 97116; 97161; 97530; 99285; J0360; J1100; J1170; J1815; J2250; J2405; J3010; J3360

== ENCOUNTER 2022-04-02 08:41 | Inpatient (IN) | payer MEDICARE, MEDICAID ==
[~2022-04-02] VITALS: Ht 165.1 cm; Wt 56.4 kg
[~2022-04-02 08:41] MED LIST changes: +MED REC COMMENT
[2022-04-02] MEDS ORDERED: ONDANSETRON 4MG 2ML VIAL IV ONE (09:55)
[2022-04-02 10:07] LABS: BASO % 0.2 % (0.0-1.0); EOS # 0.2 10^3/uL (0.0-0.5); EOS % 1.8 % (0.0-3.0); HEMATOCRIT 36.4 % (36.0-47.0); HEMOGLOBIN 11.3 g/dl (12.0-15.5); LYMPH # 1.8 10^3/uL (1.5-5.0); LYMPH % 20.1 % (24.0-44.0); MEAN CORPUSCULAR HEMOGLOBIN 23.5 pg (27.0-33.0); MEAN CORPUSCULAR VOLUME 75.8 fl (80.0-96.0); MONO # 0.5 10^3/uL (0.0-0.8); MONO % 5.9 % (2.0-8.0); NEUTROPHILS # 6.5 10^3/uL (1.5-8.5); NEUTROPHILS % 71.6 % (36.0-66.0); PLATELET COUNT, AUTOMATED 350 10^3/uL (150-450); WHITE BLOOD COUNT 9.1 10^3/uL (4.0-10.0)
[2022-04-02 10:19] LABS: INR 0.93; PARTIAL THROMBOPLASTIN TIME 28.1 SECONDS (25.9-37.0); PROTHROMBIN TIME 12.9 SECONDS (12.7-14.5)
[2022-04-02] MEDS: MORPHINE 2 MG/ML 1ML VIAL IV PRN ×3 (10:31→16:04)
[2022-04-02 11:03] LABS: ALBUMIN 3.7 GM/DL (3.2-5.2); ALT/SGPT 16 U/L (12-78); BILIRUBIN,DIRECT < 0.1 MG/DL (0.0-0.2); BILIRUBIN,TOTAL 0.2 MG/DL (0.2-1.0); BLOOD UREA NITROGEN 15 MG/DL (7-18); CALCIUM LEVEL 9.2 MG/DL (8.8-10.2); CARBON DIOXIDE LEVEL 26 MEQ/L (21-32); CHLORIDE LEVEL 100 MEQ/L (98-107); CREATININE FOR GFR 0.87 MG/DL (0.55-1.30); GLOMERULAR FILTRATION RATE > 60.0 (>45); GLUCOSE, FASTING 121 MG/DL (70-100); POTASSIUM SERUM 4.2 MEQ/L (3.5-5.1); SODIUM LEVEL 131 MEQ/L (136-145); TOTAL PROTEIN 6.9 GM/DL (6.4-8.2)
[2022-04-02] MEDS ORDERED: MORPHINE 2 MG/ML 1ML VIAL IV PRN (11:55)
[2022-04-02] MEDS: NS 1,000 ML IV SCH ×3 (12:35→21:59)
[2022-04-02] MEDS ORDERED: LOSA100T45 PO (12:53)
[2022-04-02] MEDS ORDERED: SPIR-10 PO (12:53)
[2022-04-02] MEDS ORDERED: HOME MED LIST COMPLETE! XX SCH (12:55)
[2022-04-02 13:07] LABS: RSV AMPLIFICATION NEGATIVE (NEGATIVE)
[2022-04-02] MEDS: NICOTINE 21MG/24HR 1 EA TRANSDERMAL TD SCH (15:50)
[2022-04-02] MEDS ORDERED: fentaNYL 100 MCG/2 ML INJECTION As Ordered ONE ×2 (16:09→19:26)
[2022-04-02] MEDS ORDERED: MIDAZOLAM INJ 2MG/2ML VIAL (J2250 PER 1MG) As Ordered ONE (16:09)
[2022-04-02] MEDS ORDERED: propofoL 200 MG/20 ML VIAL As Ordered ONE (16:10)
[2022-04-02] MEDS ORDERED: ROCURONIUM BROMIDE 50 MG/5 ML VIAL As Ordered ONE (16:10)
[2022-04-02] MEDS ORDERED: LIDOCAINE 2% 100MG/5ML SDV (FOR ANES.) As Ordered ONE (16:11)
[2022-04-02] MEDS ORDERED: ONDANSETRON 4MG 2ML VIAL As Ordered ONE (16:15)
[2022-04-02] MEDS ORDERED: dexameTHASONE 4 MG/ML 1ML VIAL (J1100 PER 1MG) As Ordered ONE (16:15)
[2022-04-02] MEDS ORDERED: SUGAMMADEX SODIUM 500 MG/5 ML VIAL (BRIDION) As Ordered ONE (19:30)
[2022-04-02] MEDS ORDERED: fentaNYL 100 MCG/2 ML INJECTION IV PRN (19:40)
[2022-04-02] MEDS ORDERED: LR 1,000 ML IV SCH ×2 (19:40→20:35)
[2022-04-02] MEDS ORDERED: ONDANSETRON 4MG 2ML VIAL IV PRN (19:40)
[2022-04-02] MEDS ORDERED: oxyCODONE 5MG TAB PO PRN (19:40)
[2022-04-02] MEDS: ADVAIR HFA 115/21MCG INHALER INH SCH (20:00)
[2022-04-02] MEDS ORDERED: LABETALOL 100MG/20ML VIAL IV PRN (20:05)
[2022-04-02] MEDS ORDERED: SERTRALINE HCL 50 MG TAB PO SCH (21:00)
[2022-04-02] MEDS ORDERED: LOSARTAN 50MG TABLET PO SCH (21:00)
[2022-04-02] MEDS ORDERED: INSULIN LISPRO (NovoLOG) PER UNIT SC SCH (21:00)
[2022-04-02] MEDS ORDERED: ATORVASTATIN 10 MG TAB PO SCH (21:00)
[2022-04-02] MEDS ORDERED: LATANOPROST 0.005% OPHTH SOLN 2.5 ML OU SCH (21:00)
[2022-04-02] MEDS ORDERED: traZODone 50 MG TAB PO SCH (21:00)
[2022-04-02 21:15] VITALS: BP 150/69
[2022-04-02 21:45] VITALS: BP 158/70
[2022-04-02] MEDS ORDERED: ALBUTEROL 90 MCG/ACT 8GM HFA INHALER INH PRN (22:35)
[2022-04-02] MEDS ORDERED: FLUTICASONE PROP 0.05% NASAL SPRAY 16 GM (FLONASE) NARES PRN (22:35)
[2022-04-02 22:45] VITALS: BP 139/70
[2022-04-02] MEDS ORDERED: DEXTROSE 50% 50 ML SYRINGE IV PRN (23:35)
[2022-04-02] MEDS ORDERED: GLUCAGON INJ 1MG VIAL SC PRN (23:35)
[2022-04-02] MEDS ORDERED: GLUCOSE 4GM CHEW TABLET PO PRN (23:35)
[2022-04-02 23:45] VITALS: BP 140/69
[2022-04-03] MEDS: MORPHINE 2 MG/ML 1ML VIAL IV PRN ×2 (00:24→05:14)
[2022-04-03] MEDS: PREGABALIN 75 MG CAP(LYRICA) PO SCH ×2 (00:26→08:21)
[2022-04-03] MEDS: METOPROLOL TART 25 MG TABLET PO SCH ×2 (00:26→08:21)
[2022-04-03 00:45] VITALS: BP 115/60
[2022-04-03 01:45] VITALS: BP 124/64
[2022-04-03 06:00] VITALS: BP 117/62
[2022-04-03 06:01] LABS: HEMATOCRIT 34.2 % (36.0-47.0); HEMOGLOBIN 10.4 g/dl (12.0-15.5); MEAN CORPUSCULAR HEMOGLOBIN 23.3 pg (27.0-33.0); MEAN CORPUSCULAR HGB CONC 30.4 g/dl (32.0-36.5); MEAN CORPUSCULAR VOLUME 76.7 fl (80.0-96.0); PLATELET COUNT, AUTOMATED 312 10^3/uL (150-450); RED BLOOD COUNT 4.46 10^6/uL (4.00-5.40); WHITE BLOOD COUNT 5.5 10^3/uL (4.0-10.0)
[2022-04-03 06:30] LABS: ALBUMIN 3.1 GM/DL (3.2-5.2); ALT/SGPT 24 U/L (12-78); BILIRUBIN,TOTAL 0.3 MG/DL (0.2-1.0); BLOOD UREA NITROGEN 9 MG/DL (7-18); CALCIUM LEVEL 8.7 MG/DL (8.8-10.2); CARBON DIOXIDE LEVEL 30 MEQ/L (21-32); CHLORIDE LEVEL 106 MEQ/L (98-107); CREATININE FOR GFR 0.52 MG/DL (0.55-1.30); GLOMERULAR FILTRATION RATE > 60.0 (>45); GLUCOSE, FASTING 114 MG/DL (70-100); POTASSIUM SERUM 4.2 MEQ/L (3.5-5.1); SODIUM LEVEL 139 MEQ/L (136-145); TOTAL PROTEIN 6.1 GM/DL (6.4-8.2)
[2022-04-03] MEDS: ADVAIR HFA 115/21MCG INHALER INH SCH (07:27)
[2022-04-03] MEDS: INSULIN LISPRO (NovoLOG) PER UNIT SC SCH ×2 (07:30→12:28)
[2022-04-03] MEDS: NICOTINE 21MG/24HR 1 EA TRANSDERMAL TD SCH (08:18)
[2022-04-03 08:21] VITALS: BP 117/62
[2022-04-03] MEDS ORDERED: KETOROLAC 30 MG/ML 1ML VIAL IV ONE (08:35)
[2022-04-03] MEDS ORDERED: MOM 30ML SUSPENSION UDC PO PRN (08:40)
[2022-04-03] MEDS ORDERED: ACETAMINOPHEN 500 MG TAB PO PRN (08:40)
[2022-04-03] MEDS ORDERED: oxyCODONE 5MG TAB PO PRN (08:40)
[2022-04-03] MEDS ORDERED: SPIRONOLACTONE 12.5MG PER 1/2 TABLET PO SCH (09:00)
[2022-04-03] MEDS ORDERED: ASPIRIN 81MG ENTERIC TABLET PO SCH (09:00)
[2022-04-03] MEDS ORDERED: SENOKOT S TAB PO SCH (09:00)
[2022-04-03] MEDS ORDERED: SERTRALINE 100 MG TAB PO SCH (09:00)
[2022-04-03] MEDS ORDERED: LORATADINE 10 MG TAB PO SCH (09:00)
[2022-04-03 14:00] VITALS: BP 144/76
[2022-04-03] MEDS ORDERED: HEPARIN SOD (PORCINE) 5000UNITS/ML 1ML VIAL/SYRINGE SQ SCH (14:00)
== END 2022-04-03 15:50 | disposition home or self-care (01) | DRG 560 ==
LOC: M ED 08:41 → M ED INP 11:55 → ENRESERV 16:06 → M MS5PR 21:00
PROVIDERS: ADMIT Internal Medicine; ATTEND Internal Medicine Nephrology
PROC: 0QS7XZZ Reposition Left Upper Femur, External Approach (ICD-10-PCS; principal; 2022-04-02 14:03)
DX: T84.021A Dislocation of internal left hip prosthesis, initial encounter (principal); E87.1 Hypo-osmolality and hyponatremia; I25.10 Atherosclerotic heart disease of native coronary artery without angina pectoris; Z95.1 Presence of aortocoronary bypass graft; I25.2 Old myocardial infarction; G47.33 Obstructive sleep apnea (adult) (pediatric); J44.9 Chronic obstructive pulmonary disease, unspecified; E11.40 Type 2 diabetes mellitus with diabetic neuropathy, unspecified; M19.90 Unspecified osteoarthritis, unspecified site; I10 Essential (primary) hypertension; K21.9 Gastro-esophageal reflux disease without esophagitis; G25.81 Restless legs syndrome; F32.A Depression, unspecified; F17.200 Nicotine dependence, unspecified, uncomplicated; J30.2 Other seasonal allergic rhinitis; K59.00 Constipation, unspecified; H40.9 Unspecified glaucoma; Z96.642 Presence of left artificial hip joint; Z98.1 Arthrodesis status; Z90.49 Acquired absence of other specified parts of digestive tract; Z79.82 Long term (current) use of aspirin; Z79.899 Other long term (current) drug therapy

== ENCOUNTER 2022-04-13 03:08 | Inpatient (IN) | payer MEDICARE, MEDICAID ==
[~2022-04-13] VITALS: Ht 165.1 cm; Wt 56.4 kg
[~2022-04-13 03:08] MED LIST changes: +FLUTISP; -FLUTISP NARES; +LOSA100T45 PO
[2022-04-13] MEDS: HYDROMORPHONE HCL 0.5 MG/ 0.5 ML SYRINGE (J1170 PER 1) IV PRN ×2 (04:12→08:24)
[2022-04-13 04:23] LABS: BASO % 0.2 % (0.0-1.0); EOS # 0.2 10^3/uL (0.0-0.5); EOS % 1.8 % (0.0-3.0); HEMATOCRIT 30.2 % (36.0-47.0); HEMOGLOBIN 9.6 g/dl (12.0-15.5); LYMPH # 1.6 10^3/uL (1.5-5.0); LYMPH % 18.9 % (24.0-44.0); MEAN CORPUSCULAR HEMOGLOBIN 23.8 pg (27.0-33.0); MEAN CORPUSCULAR HGB CONC 31.8 g/dl (32.0-36.5); MEAN CORPUSCULAR VOLUME 74.9 fl (80.0-96.0); MONO # 0.6 10^3/uL (0.0-0.8); MONO % 7.6 % (2.0-8.0); NEUTROPHILS # 5.9 10^3/uL (1.5-8.5); NEUTROPHILS % 70.9 % (36.0-66.0); PLATELET COUNT, AUTOMATED 260 10^3/uL (150-450); RED BLOOD COUNT 4.03 10^6/uL (4.00-5.40); WHITE BLOOD COUNT 8.4 10^3/uL (4.0-10.0)
[2022-04-13 04:52] LABS: BLOOD UREA NITROGEN 9 MG/DL (7-18); CALCIUM LEVEL 8.9 MG/DL (8.8-10.2); CARBON DIOXIDE LEVEL 27 MEQ/L (21-32); CHLORIDE LEVEL 101 MEQ/L (98-107); CREATININE FOR GFR 0.47 MG/DL (0.55-1.30); GLOMERULAR FILTRATION RATE > 60.0 (>45); GLUCOSE, FASTING 100 MG/DL (70-100); POTASSIUM SERUM 3.6 MEQ/L (3.5-5.1); SODIUM LEVEL 132 MEQ/L (136-145)
[2022-04-13] MEDS ORDERED: ACETAMINOPHEN TAB 650MG DOSE (2X325MG) PO PRN (04:55)
[2022-04-13] MEDS ORDERED: ONDANSETRON 4MG 2ML VIAL IV PRN ×2 (04:55→20:15)
[2022-04-13 04:56] LABS: RSV AMPLIFICATION NEGATIVE (NEGATIVE)
[2022-04-13] MEDS: D5W/0.9% SODIUM CHLORIDE 1,000 ML IV SCH ×2 (06:00→19:07)
[2022-04-13] MEDS ORDERED: PATIENT COMMENT (06:48)
[2022-04-13] MEDS ORDERED: HOME MED LIST COMPLETE! XX SCH (06:50)
[2022-04-13] MEDS ORDERED: ALBUTEROL 90 MCG/ACT 8GM HFA INHALER INH PRN (07:20)
[2022-04-13] MEDS ORDERED: FLUTICASONE PROP 0.05% NASAL SPRAY 16 GM (FLONASE) PRN (07:20)
[2022-04-13 08:00] VITALS: BP 170/78
[2022-04-13] MEDS: ADVAIR HFA 115/21MCG INHALER INH SCH ×2 (08:00→20:00)
[2022-04-13] MEDS: PREGABALIN 75 MG CAP(LYRICA) PO SCH ×4 (08:55→22:14)
[2022-04-13] MEDS: METOPROLOL TART 25 MG TABLET PO SCH ×2 (08:55→22:14)
[2022-04-13] MEDS: SPIRONOLACTONE 12.5MG PER 1/2 TABLET PO SCH ×2 (08:55→09:00)
[2022-04-13] MEDS: SERTRALINE 100 MG TAB PO SCH ×2 (08:55→09:00)
[2022-04-13] MEDS ORDERED: NALOXONE INJ 0.4MG/1ML VIAL (J2310 PER 1MG) IV PRN (10:00)
[2022-04-13 14:00] VITALS: BP 165/70
[2022-04-13] MEDS: MORPHINE 2 MG/ML 1ML VIAL IV PRN ×2 (15:10→22:20)
[2022-04-13] MEDS ORDERED: MORPHINE 2 MG/ML 1ML VIAL IV ONE (17:50)
[2022-04-13] MEDS ORDERED: DEXTROSE 50% 50 ML SYRINGE IV PRN (18:40)
[2022-04-13] MEDS ORDERED: GLUCOSE 4GM CHEW TABLET PO PRN (18:40)
[2022-04-13] MEDS ORDERED: GLUCAGON INJ 1MG VIAL SC PRN (18:40)
[2022-04-13] MEDS ORDERED: MIDAZOLAM INJ 2MG/2ML VIAL (J2250 PER 1MG) As Ordered ONE (19:44)
[2022-04-13] MEDS ORDERED: LIDOCAINE 2% 100MG/5ML SDV (FOR ANES.) As Ordered ONE (19:44)
[2022-04-13] MEDS ORDERED: propofoL 200 MG/20 ML VIAL As Ordered ONE (19:44)
[2022-04-13] MEDS ORDERED: fentaNYL 100 MCG/2 ML INJECTION As Ordered ONE (19:44)
[2022-04-13] MEDS ORDERED: KETAMINE HCL 200 MG/20 ML VIAL As Ordered ONE (19:55)
[2022-04-13] MEDS ORDERED: oxyCODONE 5MG TAB PO PRN (20:15)
[2022-04-13] MEDS ORDERED: LR 1,000 ML IV SCH (20:15)
[2022-04-13] MEDS ORDERED: fentaNYL 100 MCG/2 ML INJECTION IV PRN (20:15)
[2022-04-13] MEDS ORDERED: MORPHINE 2 MG/ML 1ML VIAL IV PRN (20:15)
[2022-04-13] MEDS ORDERED: hydrALAZINE 20MG/ML 1ML VIAL (J0360 PER 20MG) As Ordered ONE (20:57)
[2022-04-13] MEDS ORDERED: LOSARTAN 50MG TABLET PO SCH (21:00)
[2022-04-13] MEDS ORDERED: ATORVASTATIN 10 MG TAB PO SCH (21:00)
[2022-04-13] MEDS ORDERED: INSULIN LISPRO (NovoLOG) PER UNIT SC SCH (21:00)
[2022-04-13] MEDS ORDERED: traZODone 50 MG TAB PO SCH (21:00)
[2022-04-13] MEDS ORDERED: LATANOPROST 0.005% OPHTH SOLN 2.5 ML OU SCH (21:00)
[2022-04-13] MEDS ORDERED: SERTRALINE HCL 50 MG TAB PO SCH (21:00)
[2022-04-13] MEDS ORDERED: hydrALAZINE 20MG/ML 1ML VIAL (J0360 PER 20MG) IV ONE (21:05)
[2022-04-13 21:45] VITALS: BP 165/76
[2022-04-13 22:15] VITALS: BP 157/70
[2022-04-13 22:45] VITALS: BP 131/59
[2022-04-13 23:45] VITALS: BP 131/59
[2022-04-14] VITALS (7 sets, daily range): BP systolic 113–163; BP diastolic 58–78
[2022-04-14] MEDS: D5W/0.9% SODIUM CHLORIDE 1,000 ML IV SCH (04:17)
[2022-04-14] MEDS: MORPHINE 2 MG/ML 1ML VIAL IV PRN (04:32)
[2022-04-14] MEDS: ADVAIR HFA 115/21MCG INHALER INH SCH (07:23)
[2022-04-14 07:48] LABS: BASO % 0.3 % (0.0-1.0); EOS # 0.2 10^3/uL (0.0-0.5); EOS % 2.4 % (0.0-3.0); HEMATOCRIT 37.3 % (36.0-47.0); LYMPH # 1.5 10^3/uL (1.5-5.0); LYMPH % 24.1 % (24.0-44.0); MEAN CORPUSCULAR HGB CONC 31.4 g/dl (32.0-36.5); MEAN CORPUSCULAR VOLUME 76.6 fl (80.0-96.0); MONO # 0.5 10^3/uL (0.0-0.8); MONO % 8.6 % (2.0-8.0); NEUTROPHILS % 64.3 % (36.0-66.0); PLATELET COUNT, AUTOMATED 275 10^3/uL (150-450); RED BLOOD COUNT 4.87 10^6/uL (4.00-5.40); WHITE BLOOD COUNT 6.2 10^3/uL (4.0-10.0)
[2022-04-14 07:51] LABS: INR 1.03; PROTHROMBIN TIME 13.9 SECONDS (12.7-14.5)
[2022-04-14 07:52] LABS: PARTIAL THROMBOPLASTIN TIME 28.7 SECONDS (25.9-37.0)
[2022-04-14 07:53] LABS: HEMOGLOBIN 11.7 g/dl (12.0-15.5)
[2022-04-14 08:07] LABS: BLOOD UREA NITROGEN 5 MG/DL (7-18); CALCIUM LEVEL 9.3 MG/DL (8.8-10.2); CARBON DIOXIDE LEVEL 27 MEQ/L (21-32); CHLORIDE LEVEL 106 MEQ/L (98-107); CREATININE FOR GFR 0.53 MG/DL (0.55-1.30); GLOMERULAR FILTRATION RATE > 60.0 (>45); GLUCOSE, FASTING 132 MG/DL (70-100); POTASSIUM SERUM 3.9 MEQ/L (3.5-5.1); SODIUM LEVEL 137 MEQ/L (136-145)
[2022-04-14] MEDS: INSULIN LISPRO (NovoLOG) PER UNIT SC SCH ×3 (08:27→17:30)
[2022-04-14] MEDS: SERTRALINE 100 MG TAB PO SCH (08:28)
[2022-04-14] MEDS: NORCO, ANEXSIA 5/325MG TABLET (HYDROcodone/ACETAMINOPHEN) PO PRN ×2 (08:28→12:53)
[2022-04-14] MEDS: PREGABALIN 75 MG CAP(LYRICA) PO SCH ×2 (08:29→17:26)
[2022-04-14] MEDS: METOPROLOL TART 25 MG TABLET PO SCH (08:31)
[2022-04-14] MEDS: SPIRONOLACTONE 12.5MG PER 1/2 TABLET PO SCH (08:32)
[2022-04-14 08:40] LABS: BASO % 0.4 % (0.0-1.0); EOS # 0.1 10^3/uL (0.0-0.5); EOS % 2.2 % (0.0-3.0); HEMATOCRIT 41.5 % (36.0-47.0); HEMOGLOBIN 12.4 g/dl (12.0-15.5); LYMPH # 1.4 10^3/uL (1.5-5.0); LYMPH % 26.4 % (24.0-44.0); MEAN CORPUSCULAR HEMOGLOBIN 23.5 pg (27.0-33.0); MEAN CORPUSCULAR HGB CONC 29.9 g/dl (32.0-36.5); MEAN CORPUSCULAR VOLUME 78.6 fl (80.0-96.0); MONO # 0.4 10^3/uL (0.0-0.8); MONO % 7.9 % (2.0-8.0); NEUTROPHILS # 3.4 10^3/uL (1.5-8.5); NEUTROPHILS % 62.7 % (36.0-66.0); PLATELET COUNT, AUTOMATED 285 10^3/uL (150-450); RED BLOOD COUNT 5.28 10^6/uL (4.00-5.40); WHITE BLOOD COUNT 5.5 10^3/uL (4.0-10.0)
[2022-04-14] MEDS ORDERED: ASPIRIN 81MG ENTERIC TABLET PO SCH (09:00)
[2022-04-14] MEDS ORDERED: ENOXAPARIN 40MG/0.4ML SYRINGE (J1650 PER 10MG) SC SCH (09:00)
[2022-04-14 09:11] LABS: ALBUMIN 3.5 GM/DL (3.2-5.2); ALT/SGPT 15 U/L (12-78); BILIRUBIN,TOTAL 0.4 MG/DL (0.2-1.0); BLOOD UREA NITROGEN 4 MG/DL (7-18); CALCIUM LEVEL 9.3 MG/DL (8.8-10.2); CARBON DIOXIDE LEVEL 25 MEQ/L (21-32); CHLORIDE LEVEL 105 MEQ/L (98-107); GLOMERULAR FILTRATION RATE > 60.0 (>45); GLUCOSE, FASTING 135 MG/DL (70-100); MAGNESIUM LEVEL 1.9 MG/DL (1.8-2.4); SODIUM LEVEL 137 MEQ/L (136-145); TOTAL PROTEIN 6.6 GM/DL (6.4-8.2)
[2022-04-14] MEDS ORDERED: ACET1TAB55 PO (16:28)
[2022-04-14] MEDS ORDERED: HYDR-4571 PO (16:28)
== END 2022-04-14 17:50 | disposition home or self-care (01) | DRG 560 ==
LOC: M ED 03:08 → M ED INP 04:51 → M MS5PR 07:50
PROVIDERS: ADMIT Family Medicine; ATTEND Family Medicine
PROC: 0QS7XZZ Reposition Left Upper Femur, External Approach (ICD-10-PCS; principal; 2022-04-13 15:00)
DX: T84.021A Dislocation of internal left hip prosthesis, initial encounter (principal); I50.30 Unspecified diastolic (congestive) heart failure; E11.9 Type 2 diabetes mellitus without complications; J44.9 Chronic obstructive pulmonary disease, unspecified; G47.33 Obstructive sleep apnea (adult) (pediatric); I11.0 Hypertensive heart disease with heart failure; E78.5 Hyperlipidemia, unspecified; K21.9 Gastro-esophageal reflux disease without esophagitis; G25.81 Restless legs syndrome; Z96.642 Presence of left artificial hip joint; Z79.82 Long term (current) use of aspirin; Z79.84 Long term (current) use of oral hypoglycemic drugs; Z79.899 Other long term (current) drug therapy; M19.90 Unspecified osteoarthritis, unspecified site; I25.10 Atherosclerotic heart disease of native coronary artery without angina pectoris; Z95.1 Presence of aortocoronary bypass graft; Z90.49 Acquired absence of other specified parts of digestive tract; D64.9 Anemia, unspecified; F32.A Depression, unspecified; F41.9 Anxiety disorder, unspecified; Y83.1 Surgical operation with implant of artificial internal device as the cause of abnormal reaction of the patient, or of later complication, without mention of misadventure at the time of the procedure

== ENCOUNTER → 2022-04-27 | Outpatient (CLI) | payer MEDICARE, MEDICAID ==
[~2022-04-27] MED LIST changes: +ACET1TAB55 PO; +PATIENT COMMENT
== END ==
LOC: M PLALAB 08:28
PROVIDERS: ATTEND Internal Medicine Hematology
DX: Z01.818 Encounter for other preprocedural examination (principal)

== ENCOUNTER → 2022-04-27 | Outpatient (CLI) | payer MEDICARE, MEDICAID ==
[2022-04-27 10:20] LABS: BASO % 0.4 % (0.0-1.0); EOS # 0.2 10^3/uL (0.0-0.5); EOS % 1.6 % (0.0-3.0); HEMATOCRIT 38.1 % (36.0-47.0); HEMOGLOBIN 11.6 g/dl (12.0-15.5); LYMPH # 2.6 10^3/uL (1.5-5.0); LYMPH % 27.1 % (24.0-44.0); MEAN CORPUSCULAR HEMOGLOBIN 23.5 pg (27.0-33.0); MEAN CORPUSCULAR HGB CONC 30.4 g/dl (32.0-36.5); MEAN CORPUSCULAR VOLUME 77.1 fl (80.0-96.0); MONO # 0.7 10^3/uL (0.0-0.8); NEUTROPHILS # 6.1 10^3/uL (1.5-8.5); NEUTROPHILS % 63.6 % (36.0-66.0); PLATELET COUNT, AUTOMATED 349 10^3/uL (150-450); RED BLOOD COUNT 4.94 10^6/uL (4.00-5.40); WHITE BLOOD COUNT 9.5 10^3/uL (4.0-10.0)
[2022-04-27 10:48] LABS: ERYTHROCYTE SEDIMENTATION RATE 9 mm/hr (0-30)
[2022-04-27 11:35] LABS: C REACTIVE PROTEIN QUANTITATIV < 0.30 MG/DL (0.00-0.30); RHEUMATOID FACTOR QUANT < 10.0 IU/ML (<15.0); URIC ACID 4.3 MG/DL (2.6-6.0)
[2022-04-28 12:08] LABS: ANTINUCLEAR ANTIBODIES DIRECT Negative (Negative)
== END ==
LOC: M PLALAB 08:30
PROVIDERS: ATTEND Orthopaedic Surgery
DX: M25.552 Pain in left hip (principal)

== ENCOUNTER → 2022-04-28 | Outpatient (CLI) | payer MEDICARE, MEDICAID ==
[~2022-04-28] MED LIST changes: +ISOVUE-300 61% 50ML VIAL As Ordered ONE; +LIDOCAINE 1% MDV 20ML VIAL As Ordered ONE
== END ==
LOC: M RAD 08:41
PROVIDERS: ATTEND Internal Medicine Pulmonary Disease
DX: F17.200 Nicotine dependence, unspecified, uncomplicated (principal)
CPT/HCPCS: 71271; Q9967

== ENCOUNTER → 2022-04-28 | Outpatient (CLI) | payer MEDICARE, MEDICAID ==
[~2022-04-28] MED LIST changes: -ISOVUE-300 61% 50ML VIAL As Ordered ONE; -LIDOCAINE 1% MDV 20ML VIAL As Ordered ONE
[2022-04-28 14:30] LABS: APPEARANCE, BODY FLUID HAZY
== END ==
LOC: M IRPRO 08:42
PROVIDERS: ATTEND Orthopaedic Surgery
DX: M25.552 Pain in left hip (principal)

== ENCOUNTER 2022-05-07 10:37 | Observation (INO) | payer MEDICARE, MEDICAID ==
[~2022-05-07] VITALS: Ht 165.1 cm; Wt 55.0 kg
[2022-05-07 11:14] LABS: HEMATOCRIT 33.8 % (36.0-47.0); HEMOGLOBIN 10.7 g/dl (12.0-15.5); MEAN CORPUSCULAR HEMOGLOBIN 23.7 pg (27.0-33.0); MEAN CORPUSCULAR HGB CONC 31.7 g/dl (32.0-36.5); MEAN CORPUSCULAR VOLUME 74.9 fl (80.0-96.0); PLATELET COUNT, AUTOMATED 275 10^3/uL (150-450); RED BLOOD COUNT 4.51 10^6/uL (4.00-5.40); WHITE BLOOD COUNT 7.2 10^3/uL (4.0-10.0)
[2022-05-07 11:26] LABS: INR 0.92; PROTHROMBIN TIME 12.8 SECONDS (12.7-14.5)
[2022-05-07 11:55] LABS: BLOOD UREA NITROGEN 12 MG/DL (7-18); CALCIUM LEVEL 9.1 MG/DL (8.8-10.2); CARBON DIOXIDE LEVEL 25 MEQ/L (21-32); CHLORIDE LEVEL 96 MEQ/L (98-107); GLOMERULAR FILTRATION RATE > 60.0 (>45); GLUCOSE, FASTING 97 MG/DL (70-100); POTASSIUM SERUM 4.4 MEQ/L (3.5-5.1); SODIUM LEVEL 129 MEQ/L (136-145)
[2022-05-07 12:06] LABS: RSV AMPLIFICATION NEGATIVE (NEGATIVE)
[2022-05-07] MEDS ORDERED: HYDROmorphone HCL 2MG/ML 1ML VIAL As Ordered ONE (13:04)
[2022-05-07] MEDS ORDERED: KETOROLAC 30 MG/ML 1ML VIAL IV PRN (13:05)
[2022-05-07] MEDS ORDERED: MORPHINE 2 MG/ML 1ML VIAL IV PRN (13:05)
[2022-05-07] MEDS ORDERED: oxyCODONE 5MG TAB PO PRN (13:05)
[2022-05-07] MEDS ORDERED: HYDROMORPHONE HCL 0.5 MG/ 0.5 ML SYRINGE (J1170 PER 1) IV ONE (13:10)
[2022-05-07] MEDS ORDERED: HYDROmorphone HCL 2MG/ML 1ML VIAL IV ONE (13:15)
[2022-05-07] MEDS ORDERED: LIDOCAINE 2% 100MG/5ML SDV (FOR ANES.) As Ordered ONE (13:35)
[2022-05-07] MEDS ORDERED: propofoL 200 MG/20 ML VIAL As Ordered ONE (13:36)
[2022-05-07] MEDS ORDERED: MIDAZOLAM INJ 2MG/2ML VIAL (J2250 PER 1MG) As Ordered ONE (13:36)
[2022-05-07] MEDS ORDERED: fentaNYL 100 MCG/2 ML INJECTION As Ordered ONE (13:36)
[2022-05-07] MEDS ORDERED: ACETAMINOPHEN TAB 650MG DOSE (2X325MG) PO PRN (14:00)
[2022-05-07] MEDS ORDERED: IBUPROFEN 600MG TAB PO PRN (15:00)
[2022-05-07 15:23] VITALS: BP 152/73
[2022-05-07 16:00] VITALS: BP 149/66
[2022-05-07] MEDS ORDERED: ACETAMINOPHEN TAB 650MG DOSE (2X325MG) PO SCH (16:00)
[2022-05-07] MEDS ORDERED: ERGO500029 PO (16:04)
[2022-05-07] MEDS ORDERED: HOME MED LIST COMPLETE! XX SCH (16:05)
[2022-05-07 16:30] VITALS: BP 144/80
[2022-05-07] MEDS ORDERED: FLUTICASONE PROP 0.05% NASAL SPRAY 16 GM (FLONASE) PRN (16:40)
[2022-05-07] MEDS ORDERED: ALBUTEROL 90 MCG/ACT 8GM HFA INHALER INH PRN (16:40)
[2022-05-07] MEDS ORDERED: ACET1TAB55 PO (16:55)
[2022-05-07] MEDS ORDERED: IBUP-1022 PO (16:55)
[2022-05-07] MEDS ORDERED: LIDO5TD TD (16:55)
[2022-05-07] MEDS ORDERED: OXYC-517 PO (16:55)
[2022-05-07 17:30] VITALS: BP 132/66
[2022-05-07 17:31] LABS: HEMATOCRIT 36.5 % (36.0-47.0); HEMOGLOBIN 11.3 g/dl (12.0-15.5); MEAN CORPUSCULAR HEMOGLOBIN 23.4 pg (27.0-33.0); MEAN CORPUSCULAR VOLUME 75.6 fl (80.0-96.0); PLATELET COUNT, AUTOMATED 267 10^3/uL (150-450); RED BLOOD COUNT 4.83 10^6/uL (4.00-5.40); WHITE BLOOD COUNT 6.1 10^3/uL (4.0-10.0)
[2022-05-07] MEDS: NICOTINE 21MG/24HR 1 EA TRANSDERMAL TD SCH (17:46)
[2022-05-07] MEDS: LIDOCAINE 5% (LIDODERM) PATCH TD SCH (17:47)
[2022-05-07 17:58] LABS: BLOOD UREA NITROGEN 9 MG/DL (7-18); CARBON DIOXIDE LEVEL 29 MEQ/L (21-32); CHLORIDE LEVEL 99 MEQ/L (98-107); CREATININE FOR GFR 0.56 MG/DL (0.55-1.30); GLOMERULAR FILTRATION RATE > 60.0 (>45); GLUCOSE, FASTING 92 MG/DL (70-100); POTASSIUM SERUM 4.1 MEQ/L (3.5-5.1); SODIUM LEVEL 130 MEQ/L (136-145)
[2022-05-07] MEDS: ADVAIR HFA 115/21MCG INHALER INH SCH (19:56)
[2022-05-07 20:00] VITALS: BP 140/62
[2022-05-07] MEDS: PREGABALIN 75 MG CAP(LYRICA) PO SCH (20:20)
[2022-05-07] MEDS: METOPROLOL TART 25 MG TABLET PO SCH (20:22)
[2022-05-07 21:00] VITALS: BP 138/64
[2022-05-07] MEDS ORDERED: SERTRALINE HCL 50 MG TAB PO SCH (21:00)
[2022-05-07] MEDS ORDERED: ATORVASTATIN 10 MG TAB PO SCH (21:00)
[2022-05-07] MEDS ORDERED: LOSARTAN 50MG TABLET PO SCH (21:00)
[2022-05-07] MEDS ORDERED: traZODone 50 MG TAB PO SCH (21:00)
[2022-05-07] MEDS ORDERED: **NOTE PATIENT COMMENT** MISC XX SCH (21:00)
[2022-05-07] MEDS ORDERED: LATANOPROST 0.005% OPHTH SOLN 2.5 ML OU SCH (21:00)
[2022-05-08 01:00] VITALS: BP 140/58
[2022-05-08 05:00] VITALS: BP 150/78
[2022-05-08] MEDS: ADVAIR HFA 115/21MCG INHALER INH SCH (07:48)
[2022-05-08 09:00] VITALS: BP 127/56
[2022-05-08] MEDS ORDERED: LORATADINE 10 MG TAB PO SCH (09:00)
[2022-05-08] MEDS ORDERED: SPIRONOLACTONE 12.5MG PER 1/2 TABLET PO SCH (09:00)
[2022-05-08] MEDS: NICOTINE 21MG/24HR 1 EA TRANSDERMAL TD SCH (09:00)
[2022-05-08] MEDS ORDERED: SERTRALINE 100 MG TAB PO SCH (09:00)
[2022-05-08] MEDS ORDERED: ASPIRIN 81MG ENTERIC TABLET PO SCH (09:00)
[2022-05-08] MEDS ORDERED: ENOXAPARIN 40MG/0.4ML SYRINGE (J1650 PER 10MG) SC SCH (09:00)
[2022-05-08] MEDS: LIDOCAINE 5% (LIDODERM) PATCH TD SCH (09:11)
[2022-05-08] MEDS: PREGABALIN 75 MG CAP(LYRICA) PO SCH (09:12)
[2022-05-08 09:22] VITALS: BP 149/86
[2022-05-08] MEDS: METOPROLOL TART 25 MG TABLET PO SCH (09:22)
== END 2022-05-08 11:27 | disposition home or self-care (01) ==
LOC: M ED 10:37 → EDBD 10:37 → M ED INP 12:15 → M MSPAV 15:27
PROVIDERS: ADMIT Student in an Organized Health Care Education/Training Program; ATTEND Student in an Organized Health Care Education/Training Program
DX: M24.452 Recurrent dislocation, left hip (principal); I10 Essential (primary) hypertension; J44.9 Chronic obstructive pulmonary disease, unspecified; R73.03 Prediabetes; I25.10 Atherosclerotic heart disease of native coronary artery without angina pectoris; E78.9 Disorder of lipoprotein metabolism, unspecified; K21.9 Gastro-esophageal reflux disease without esophagitis; G47.33 Obstructive sleep apnea (adult) (pediatric); M19.90 Unspecified osteoarthritis, unspecified site; G25.81 Restless legs syndrome; F32.A Depression, unspecified; D64.9 Anemia, unspecified; F17.200 Nicotine dependence, unspecified, uncomplicated; Z79.899 Other long term (current) drug therapy; Z79.82 Long term (current) use of aspirin; Z79.51 Long term (current) use of inhaled steroids; Z79.84 Long term (current) use of oral hypoglycemic drugs
CPT/HCPCS: 27266; 36415; 73501; 73502; 80048; 85027; 85610; 87631; 93005; 94640; 94664; 96372; 97161; 97165; 99284; G0378; J1170; J1650; J2250; J3010

== ENCOUNTER 2023-08-07 14:47 | Emergency (ER) | payer MEDICARE, MEDICAID ==
[~2023-08-07 14:47] MED LIST changes: +DICL100G10 TOP; -DICL1GEL3 TOP; +IBUP-1022 PO; +LIDO5TD TD; +LORA-1041 PO; -LORA-674 PO; -LOSA100T45 PO; +LOSA100T46 PO; +OXYC-517 PO; -PREG150C; +PREG150C2; -PREG75CA2 PO; +PREG75CA3 PO
[2023-08-07] MEDS ORDERED: ACETAMINOPHEN 500 MG TAB PO ONE (15:15)
[2023-08-07 15:56] LABS: BASO % 0.3 % (0.0-1.0); EOS % 0.6 % (0.0-3.0); HEMOGLOBIN 10.6 g/dl (12.0-15.5); LYMPH # 2.3 10^3/uL (1.5-5.0); LYMPH % 34.9 % (24.0-44.0); MEAN CORPUSCULAR HEMOGLOBIN 24.1 pg (27.0-33.0); MEAN CORPUSCULAR HGB CONC 31.2 g/dl (32.0-36.5); MEAN CORPUSCULAR VOLUME 77.3 fl (80.0-96.0); MONO # 0.5 10^3/uL (0.0-0.8); MONO % 6.7 % (2.0-8.0); NEUTROPHILS # 3.8 10^3/uL (1.5-8.5); NEUTROPHILS % 56.9 % (36.0-66.0); PLATELET COUNT, AUTOMATED 289 10^3/uL (150-450); WHITE BLOOD COUNT 6.7 10^3/uL (4.0-10.0)
[2023-08-07 16:14] LABS: THYROXINE (T4) 11.6 UG/DL (4.5-10.9)
[2023-08-07 16:15] LABS: THYROID STIMULATING HORMONE 1.422 uIU/ML (0.55-4.78)
[2023-08-07 16:16] LABS: ALBUMIN 3.5 G/DL (3.2-5.2); ALKALINE PHOSPHATASE 123 U/L (46-116); ALT/SGPT 19 U/L (7.0-40); AST/SGOT 47 U/L (<34); BILIRUBIN,DIRECT < 0.1 MG/DL (<0.4); BILIRUBIN,TOTAL 0.2 MG/DL (0.3-1.2); BLOOD UREA NITROGEN 9 MG/DL (9-23); CALCIUM LEVEL 9.7 MG/DL (8.3-10.6); CARBON DIOXIDE LEVEL 24 MMOL/L (20-31); CHLORIDE LEVEL 106 MMOL/L (98-107); CK-MB VALUE MASS < 1.0 NG/ML (<3.6); CPK CREATINE PHOSPHOKINASE 87 U/L (34-145); CREATININE FOR GFR 0.38 MG/DL (0.55-1.30); GLOMERULAR FILTRATION RATE > 60.0 (>45); GLUCOSE, FASTING 144 MG/DL (74-106); MB/CK RELATIVE INDEX 1.14 (< OR =4); POTASSIUM SERUM 5.5 MMOL/L (3.5-5.1); SODIUM LEVEL 138 MMOL/L (136-145); TOTAL PROTEIN 7.2 G/DL (5.7-8.2)
[2023-08-07 17:00] LABS: CK-MB VALUE MASS < 1.0 NG/ML (<3.6)
[2023-08-07] MEDS ORDERED: ISOVUE-370 76% 100ML VIAL As Ordered ONE (17:00)
[2023-08-07 17:08] LABS: CPK CREATINE PHOSPHOKINASE 66 U/L (34-145); MB/CK RELATIVE INDEX 1.51 (< OR =4)
[2023-08-07 17:45] VITALS: BP 194/91
[2023-08-07 18:02] VITALS: TEMP 97.4; O2SAT 97
== END 2023-08-07 18:30 | disposition home or self-care (01) ==
LOC: EDBD 14:47 → M ED 14:47
DX: R06.02 Shortness of breath (principal); M79.673 Pain in unspecified foot; E11.9 Type 2 diabetes mellitus without complications; I10 Essential (primary) hypertension; J45.909 Unspecified asthma, uncomplicated; E78.5 Hyperlipidemia, unspecified; G47.33 Obstructive sleep apnea (adult) (pediatric); K21.9 Gastro-esophageal reflux disease without esophagitis; M54.50 Low back pain, unspecified; F32.9 Major depressive disorder, single episode, unspecified; Z95.1 Presence of aortocoronary bypass graft; Z79.82 Long term (current) use of aspirin; Z79.899 Other long term (current) drug therapy
CPT/HCPCS: 71045; 71275; 73620; 80048; 80076; 81001; 82550; 82553; 83605; 83880; 84436; 84443; 84484; 85025; 87040; 87486; 87581; 87633; 87798; 93005; 93041; 94760; 99285; Q9967

== ENCOUNTER → 2023-09-17 | Outpatient (CLI) | payer MEDICARE, MEDICAID | LOC: M RAD 16:45 | PROVIDERS: ATTEND Internal Medicine Pulmonary Disease | DX: Z93.0 Tracheostomy status (principal) ==

== ENCOUNTER 2023-10-25 10:44 | Emergency (ER) | payer MEDICARE, MEDICAID ==
[~2023-10-25] VITALS: Ht 165.1 cm; Wt 54.0 kg
[2023-10-25 10:57] VITALS: TEMP 98.3
[2023-10-25] MEDS: ACETAMINOPHEN 500 MG TAB PO ONE (11:36)
[2023-10-25 12:17] LABS: APPEARANCE, URINE HAZY (CLEAR); BACTERIA, URINE AUTO 1+ (NEGATIVE); BILIRUBIN, URINE AUTO NEGATIVE (NEGATIVE); BLOOD, URINE BLOOD NEGATIVE (NEGATIVE); COLOR, URINE YELLOW (YELLOW); GLUCOSE, URINE (UA) AUTO NEGATIVE (NEGATIVE); KETONE, URINE AUTO NEGATIVE (NEGATIVE); LEUKOCYTE ESTERASE, URINE AUTO 2+ (NEGATIVE); NITRITE, URINE AUTO NEGATIVE (NEGATIVE); PROTEIN, URINE AUTO NEGATIVE (NEGATIVE); RBC, URINE AUTO 0 /HPF (0-3); SPECIFIC GRAVITY URINE AUTO 1.013 (1.002-1.035); SQUAMOUS EPITHELIAL CELL UR AU 0 /HPF (0-6); UROBILINOGEN, URINE AUTO 0.2 mg/dL (0.0-2.0); WBC, URINE AUTO 68 /HPF (0-3)
[2023-10-25] MEDS ORDERED: CEFD300C PO (13:55)
[2023-10-25 14:41] VITALS: BP 117/73; O2SAT 99
== END 2023-10-25 14:55 | disposition home or self-care (01) ==
LOC: M ED 10:44
DX: S06.0X0A Concussion without loss of consciousness, initial encounter (principal); Y92.9 Unspecified place or not applicable; Y93.9 Activity, unspecified; Y99.9 Unspecified external cause status; W18.11XA Fall from or off toilet without subsequent striking against object, initial encounter; E11.9 Type 2 diabetes mellitus without complications; I25.119 Atherosclerotic heart disease of native coronary artery with unspecified angina pectoris; E78.5 Hyperlipidemia, unspecified; J44.9 Chronic obstructive pulmonary disease, unspecified; G47.33 Obstructive sleep apnea (adult) (pediatric); Z87.891 Personal history of nicotine dependence; Z79.1 Long term (current) use of non-steroidal anti-inflammatories (NSAID); Z79.51 Long term (current) use of inhaled steroids; Z79.2 Long term (current) use of antibiotics; Z79.84 Long term (current) use of oral hypoglycemic drugs; Z79.899 Other long term (current) drug therapy

== ENCOUNTER → 2023-11-21 | Outpatient (REF) | payer MEDICARE, MEDICAID ==
[~2023-11-21] MED LIST changes: +CEFD300C PO
== END ==
LOC: M SFHCPLAZ 17:09
PROVIDERS: ATTEND Nurse Practitioner Adult Health
DX: R09.81 Nasal congestion (principal)

== ENCOUNTER 2023-11-28 15:39 | Emergency (ER) | payer MEDICARE, MEDICAID ==
[~2023-11-28] VITALS: Ht 165.1 cm; Wt 55.4 kg
[2023-11-28 16:28] LABS: BASO % 0.3 % (0.0-1.0); EOS # 0.1 10^3/uL (0.0-0.5); HEMATOCRIT 31.8 % (36.0-47.0); HEMOGLOBIN 9.8 g/dl (12.0-15.5); LYMPH # 3.1 10^3/uL (1.5-5.0); LYMPH % 31.6 % (24.0-44.0); MEAN CORPUSCULAR HGB CONC 30.8 g/dl (32.0-36.5); MEAN CORPUSCULAR VOLUME 77.8 fl (80.0-96.0); MONO # 0.9 10^3/uL (0.0-0.8); MONO % 8.8 % (2.0-8.0); NEUTROPHILS # 5.6 10^3/uL (1.5-8.5); NEUTROPHILS % 57.5 % (36.0-66.0); PLATELET COUNT, AUTOMATED 340 10^3/uL (150-450); RED BLOOD COUNT 4.09 10^6/uL (4.00-5.40); WHITE BLOOD COUNT 9.7 10^3/uL (4.0-10.0)
[2023-11-28] MEDS: IPRATROPIUM 0.5MG/ALBUTEROL 2.5MG INH SOL UD 3ML (DUONEB) NEB ONE (16:39)
[2023-11-28 16:52] LABS: LIPASE 29 U/L (12-53)
[2023-11-28 16:53] LABS: C REACTIVE PROTEIN QUANTITATIV 3.3 MG/DL (<1.0)
[2023-11-28 16:54] LABS: CK-MB VALUE MASS < 1.0 NG/ML (<3.6)
[2023-11-28 16:55] LABS: ALBUMIN 3.1 G/DL (3.2-5.2); ALKALINE PHOSPHATASE 150 U/L (46-116); ALT/SGPT 19 U/L (7.0-40); AST/SGOT 25 U/L (<34); BILIRUBIN,DIRECT < 0.1 MG/DL (<0.4); BILIRUBIN,TOTAL 0.2 MG/DL (0.3-1.2); BLOOD UREA NITROGEN 10 MG/DL (9-23); CARBON DIOXIDE LEVEL 27 MMOL/L (20-31); CHLORIDE LEVEL 106 MMOL/L (98-107); CREATININE FOR GFR 0.49 MG/DL (0.55-1.30); GLOMERULAR FILTRATION RATE > 60.0 (>45); GLUCOSE, FASTING 88 MG/DL (74-106); INR 0.93; POTASSIUM SERUM 4.4 MMOL/L (3.5-5.1); PROTHROMBIN TIME 12.2 SECONDS (12.5-14.5); SODIUM LEVEL 141 MMOL/L (136-145); TOTAL PROTEIN 6.9 G/DL (5.7-8.2)
[2023-11-28 17:05] LABS: CPK CREATINE PHOSPHOKINASE 66 U/L (34-145); MB/CK RELATIVE INDEX 1.51 (< OR =4)
[2023-11-28 17:07] LABS: PROCALCITONIN 0.09 ng/ml
[2023-11-28] MEDS ORDERED: ISOVUE-370 76% 100ML VIAL As Ordered ONE (17:13)
[2023-11-28 17:43] LABS: CK-MB VALUE MASS < 1.0 NG/ML (<3.6)
[2023-11-28 17:46] LABS: CPK CREATINE PHOSPHOKINASE 54 U/L (34-145); MB/CK RELATIVE INDEX 1.85 (< OR =4)
[2023-11-28 18:01] VITALS: BP 140/65; TEMP 98.1
[2023-11-28] MEDS: methylPREDNISolone 125MG 2ML VIAL IV ONE (18:01)
[2023-11-28 18:46] VITALS: O2SAT 96
[2023-11-28] MEDS ORDERED: PRED10TA2 PO (18:51)
[2023-11-28] MEDS ORDERED: AZIT500T5 PO (18:51)
[2023-11-28] MEDS: AZITHROMYCIN 250MG TABLET PO ONE (18:58)
== END 2023-11-28 19:03 | disposition home or self-care (01) ==
LOC: M ED 15:39
DX: R07.9 Chest pain, unspecified (principal); J44.1 Chronic obstructive pulmonary disease with (acute) exacerbation; E11.9 Type 2 diabetes mellitus without complications; I25.119 Atherosclerotic heart disease of native coronary artery with unspecified angina pectoris; F17.210 Nicotine dependence, cigarettes, uncomplicated; Z79.1 Long term (current) use of non-steroidal anti-inflammatories (NSAID); Z79.51 Long term (current) use of inhaled steroids; Z79.2 Long term (current) use of antibiotics; Z79.84 Long term (current) use of oral hypoglycemic drugs; Z79.52 Long term (current) use of systemic steroids; Z79.899 Other long term (current) drug therapy
CPT/HCPCS: 70450; 71045; 71275; 72125; 73502; 80048; 80076; 82550; 82553; 83690; 83880; 84145; 84484; 85025; 85379; 85610; 85730; 86140; 87430; 87486; 87581; 87633; 87798; 93005; 93041; 94640; 94760; 96374; 99285; J2919; Q9967

== ENCOUNTER 2024-01-24 13:11 | Emergency (ER) | payer MEDICARE, MEDICAID ==
[~2024-01-24] VITALS: Ht 165.1 cm; Wt 52.3 kg
[~2024-01-24 13:11] MED LIST changes: +AZIT500T5 PO; +PRED10TA2 PO
[2024-01-24 14:14] LABS: BASO % 0.4 % (0.0-1.0); EOS # 0.1 10^3/uL (0.0-0.5); EOS % 1.4 % (0.0-3.0); HEMATOCRIT 31.1 % (36.0-47.0); HEMOGLOBIN 9.2 g/dl (12.0-15.5); LYMPH # 1.8 10^3/uL (1.5-5.0); LYMPH % 24.3 % (24.0-44.0); MEAN CORPUSCULAR HEMOGLOBIN 22.4 pg (27.0-33.0); MEAN CORPUSCULAR HGB CONC 29.6 g/dl (32.0-36.5); MEAN CORPUSCULAR VOLUME 75.7 fl (80.0-96.0); MONO # 0.6 10^3/uL (0.0-0.8); MONO % 8.5 % (2.0-8.0); NEUTROPHILS # 4.7 10^3/uL (1.5-8.5); NEUTROPHILS % 64.4 % (36.0-66.0); PLATELET COUNT, AUTOMATED 409 10^3/uL (150-450); RED BLOOD COUNT 4.11 10^6/uL (4.00-5.40); WHITE BLOOD COUNT 7.3 10^3/uL (4.0-10.0)
[2024-01-24 14:34] LABS: INR 1.04; PARTIAL THROMBOPLASTIN TIME 31.4 SECONDS (24.8-34.2); PROTHROMBIN TIME 13.3 SECONDS (12.5-14.5)
[2024-01-24 14:39] LABS: LIPASE 21 U/L (12-53)
[2024-01-24 14:41] LABS: CPK CREATINE PHOSPHOKINASE 43 U/L (34-145)
[2024-01-24 14:42] LABS: ALKALINE PHOSPHATASE 186 U/L (46-116); ALT/SGPT 33 U/L (7.0-40); AST/SGOT 14 U/L (<34); BILIRUBIN,DIRECT < 0.1 MG/DL (<0.4); BILIRUBIN,TOTAL 0.2 MG/DL (0.3-1.2); BLOOD UREA NITROGEN 10 MG/DL (9-23); CALCIUM LEVEL 9.6 MG/DL (8.3-10.6); CARBON DIOXIDE LEVEL 30 MMOL/L (20-31); CHLORIDE LEVEL 101 MMOL/L (98-107); CK-MB VALUE MASS < 1.0 NG/ML (<3.6); GLOMERULAR FILTRATION RATE > 60.0 (>45); GLUCOSE, FASTING 140 MG/DL (74-106); MB/CK RELATIVE INDEX 2.32 (< OR =4); POTASSIUM SERUM 4.2 MMOL/L (3.5-5.1); SODIUM LEVEL 137 MMOL/L (136-145); THYROID STIMULATING HORMONE 1.003 uIU/ML (0.55-4.78); TOTAL PROTEIN 6.9 G/DL (5.7-8.2)
[2024-01-24 14:43] LABS: FREE T4 1.24 NG/DL (0.89-1.76)
[2024-01-24] MEDS ORDERED: NITROGLYCERIN 0.4MG SUBL TABLET SL PRN (15:25)
[2024-01-24] MEDS ORDERED: ISOVUE-370 76% 100ML VIAL As Ordered ONE (15:30)
[2024-01-24 15:42] LABS: CK-MB VALUE MASS < 1.0 NG/ML (<3.6)
[2024-01-24 15:43] LABS: CPK CREATINE PHOSPHOKINASE 44 U/L (34-145); MB/CK RELATIVE INDEX 2.27 (< OR =4)
[2024-01-24] MEDS: NS 1,000 ML IV SCH (16:03)
[2024-01-24] MEDS: MORPHINE 4 MG/ML 1ML VIAL IV ONE ×2 (16:03→18:32)
[2024-01-24 22:02] VITALS: BP 153/67; TEMP 97; O2SAT 96
== END 2024-01-24 22:17 | disposition short-term general hospital (02) ==
LOC: M ED 13:11
DX: S22.080A Wedge compression fracture of T11-T12 vertebra, initial encounter for closed fracture (principal); Y92.9 Unspecified place or not applicable; Y93.9 Activity, unspecified; Y99.9 Unspecified external cause status; W19.XXXA Unspecified fall, initial encounter; I45.10 Unspecified right bundle-branch block; E11.9 Type 2 diabetes mellitus without complications; I25.119 Atherosclerotic heart disease of native coronary artery with unspecified angina pectoris; J44.9 Chronic obstructive pulmonary disease, unspecified; K21.9 Gastro-esophageal reflux disease without esophagitis; G47.33 Obstructive sleep apnea (adult) (pediatric)
CPT/HCPCS: 36415; 70450; 71046; 71275; 72125; 72128; 72131; 74177; 80048; 80076; 81001; 82550; 82553; 83690; 83880; 84439; 84443; 84484; 85025; 85610; 85730; 93005; 93041; 94760; 96374; 96376; 99285; Q9967

== ENCOUNTER 2024-02-05 20:22 | Emergency (ER) | payer MEDICARE, MEDICAID ==
[~2024-02-05] VITALS: Ht 165.1 cm; Wt 54.5 kg
[2024-02-05 20:50] LABS: BASO % 0.2 % (0.0-1.0); EOS # 0.1 10^3/uL (0.0-0.5); EOS % 1.4 % (0.0-3.0); HEMATOCRIT 28.7 % (36.0-47.0); HEMOGLOBIN 8.7 g/dl (12.0-15.5); LYMPH # 1.5 10^3/uL (1.5-5.0); LYMPH % 17.5 % (24.0-44.0); MEAN CORPUSCULAR HEMOGLOBIN 22.2 pg (27.0-33.0); MEAN CORPUSCULAR HGB CONC 30.3 g/dl (32.0-36.5); MEAN CORPUSCULAR VOLUME 73.2 fl (80.0-96.0); MONO # 0.8 10^3/uL (0.0-0.8); MONO % 8.9 % (2.0-8.0); NEUTROPHILS # 5.9 10^3/uL (1.5-8.5); NEUTROPHILS % 70.6 % (36.0-66.0); PLATELET COUNT, AUTOMATED 422 10^3/uL (150-450); RED BLOOD COUNT 3.92 10^6/uL (4.00-5.40); WHITE BLOOD COUNT 8.4 10^3/uL (4.0-10.0)
[2024-02-05] MEDS: NORCO, ANEXSIA 5/325MG TABLET (HYDROcodone/ACETAMINOPHEN) PO ONE (20:57)
[2024-02-05 21:12] LABS: CK-MB VALUE MASS < 1.0 NG/ML (<3.6)
[2024-02-05 21:13] LABS: BLOOD UREA NITROGEN 11 MG/DL (9-23); CALCIUM LEVEL 9.4 MG/DL (8.3-10.6); CARBON DIOXIDE LEVEL 28 MMOL/L (20-31); CHLORIDE LEVEL 105 MMOL/L (98-107); CREATININE FOR GFR 0.53 MG/DL (0.55-1.30); GLOMERULAR FILTRATION RATE > 60.0 (>45); GLUCOSE, FASTING 181 MG/DL (74-106); SODIUM LEVEL 140 MMOL/L (136-145)
[2024-02-05 21:16] LABS: CPK CREATINE PHOSPHOKINASE 46 U/L (34-145); MB/CK RELATIVE INDEX 2.17 (< OR =4)
[2024-02-05] MEDS ORDERED: ISOVUE-370 76% 100ML VIAL As Ordered ONE (21:26)
[2024-02-05 22:06] LABS: CK-MB VALUE MASS < 1.0 NG/ML (<3.6)
[2024-02-05 22:07] LABS: CPK CREATINE PHOSPHOKINASE 35 U/L (34-145); MB/CK RELATIVE INDEX 2.85 (< OR =4)
[2024-02-05 23:39] VITALS: BP 164/74; TEMP 98.2; O2SAT 95
== END 2024-02-05 23:40 | disposition home or self-care (01) ==
LOC: M ED 20:22 → EDBD 20:22 → M ED 23:40
DX: R07.9 Chest pain, unspecified (principal); I45.10 Unspecified right bundle-branch block; E11.9 Type 2 diabetes mellitus without complications; I10 Essential (primary) hypertension; I25.119 Atherosclerotic heart disease of native coronary artery with unspecified angina pectoris; J44.9 Chronic obstructive pulmonary disease, unspecified; K21.9 Gastro-esophageal reflux disease without esophagitis; G47.33 Obstructive sleep apnea (adult) (pediatric); Z79.1 Long term (current) use of non-steroidal anti-inflammatories (NSAID); Z79.51 Long term (current) use of inhaled steroids; Z79.2 Long term (current) use of antibiotics; Z79.84 Long term (current) use of oral hypoglycemic drugs; Z79.52 Long term (current) use of systemic steroids; Z79.899 Other long term (current) drug therapy
CPT/HCPCS: 36415; 71045; 71275; 80048; 82550; 82553; 84484; 85025; 93005; 93041; 94760; 99285; Q9967

== ENCOUNTER 2024-02-07 07:03 | Emergency (ER) | payer MEDICARE, MEDICAID ==
[~2024-02-07] VITALS: Ht 165.1 cm; Wt 54.5 kg
[2024-02-07 07:13] VITALS: TEMP 97.2
[2024-02-07] MEDS: MORPHINE 4 MG/ML 1ML VIAL IV ONE ×4 (08:45→18:49)
[2024-02-07] MEDS: CYCLOBENZAPRINE 5MG TABLET PO ONE (08:45)
[2024-02-07 09:15] LABS: BASO % 0.3 % (0.0-1.0); EOS % 0.6 % (0.0-3.0); HEMOGLOBIN 7.8 g/dl (12.0-15.5); LYMPH # 1.2 10^3/uL (1.5-5.0); LYMPH % 17.7 % (24.0-44.0); MEAN CORPUSCULAR HEMOGLOBIN 22.2 pg (27.0-33.0); MEAN CORPUSCULAR VOLUME 74.1 fl (80.0-96.0); MONO # 0.8 10^3/uL (0.0-0.8); MONO % 11.1 % (2.0-8.0); NEUTROPHILS # 4.7 10^3/uL (1.5-8.5); NEUTROPHILS % 69.4 % (36.0-66.0); PLATELET COUNT, AUTOMATED 384 10^3/uL (150-450); RED BLOOD COUNT 3.51 10^6/uL (4.00-5.40); WHITE BLOOD COUNT 6.7 10^3/uL (4.0-10.0)
[2024-02-07 09:39] LABS: ERYTHROCYTE SEDIMENTATION RATE 105 mm/hr (0-30)
[2024-02-07 09:48] LABS: ALBUMIN 2.7 G/DL (3.2-5.2); ALKALINE PHOSPHATASE 205 U/L (46-116); ALT/SGPT 17 U/L (7.0-40); AST/SGOT 26 U/L (<34); BILIRUBIN,TOTAL 0.2 MG/DL (0.3-1.2); BLOOD UREA NITROGEN 12 MG/DL (9-23); CALCIUM LEVEL 8.8 MG/DL (8.3-10.6); CARBON DIOXIDE LEVEL 27 MMOL/L (20-31); CHLORIDE LEVEL 104 MMOL/L (98-107); CREATININE FOR GFR 0.54 MG/DL (0.55-1.30); GLOMERULAR FILTRATION RATE > 60.0 (>45); GLUCOSE, FASTING 176 MG/DL (74-106); POTASSIUM SERUM 4.6 MMOL/L (3.5-5.1); SODIUM LEVEL 137 MMOL/L (136-145); TOTAL PROTEIN 6.4 G/DL (5.7-8.2)
[2024-02-07] MEDS: PIPERACILLIN/TAZOBACTAM SOD 4.5 GM in D5W MINI-BAG PLUS 50 ML IV ONE ×2 (11:51→18:49)
[2024-02-07] MEDS: VANCOMYCIN HCL 1,000 MG, VIAL MATE ADAPTER 1 EACH in D5W 250 ML IV ONE (13:37)
[2024-02-07 16:58] VITALS: BP 182/82
[2024-02-07] MEDS: LOSARTAN 50MG TABLET PO ONE (16:58)
[2024-02-07] MEDS: PANTOPRAZOLE 40MG VIAL IV ONE (18:49)
[2024-02-07 19:14] LABS: CK-MB VALUE MASS < 1.0 NG/ML (<3.6)
[2024-02-07] MEDS: MAALOX 30 ML SUSP *UDC PO ONE (19:15)
[2024-02-07 19:18] LABS: CPK CREATINE PHOSPHOKINASE 51 U/L (34-145); MB/CK RELATIVE INDEX 1.96 (< OR =4)
[2024-02-07] MEDS ORDERED: VANCOMYCIN HCL 750 MG, VIAL MATE ADAPTER 1 EACH in D5W 250 ML IV SCH (23:30)
[2024-02-07] MEDS: MORPHINE 4 MG/ML 1ML VIAL IV PRN (23:37)
[2024-02-07] MEDS: PIPERACILLIN/TAZOBACTAM SOD 4.5 GM in D5W MINI-BAG PLUS 50 ML IV SCH (23:44)
[2024-02-08] MEDS: VANCOMYCIN HCL 750 MG, VIAL MATE ADAPTER 1 EACH in D5W 250 ML IV SCH (00:55)
[2024-02-08] MEDS: PIPERACILLIN/TAZOBACTAM SOD 4.5 GM in D5W MINI-BAG PLUS 50 ML IV SCH (03:42)
[2024-02-08 06:00] VITALS: BP 180/79
[2024-02-08 06:45] VITALS: O2SAT 100
[2024-02-08] MEDS: MORPHINE 4 MG/ML 1ML VIAL IV ONE (07:01)
== END 2024-02-08 07:09 | disposition short-term general hospital (02) ==
LOC: M ED 07:03
DX: A41.9 Sepsis, unspecified organism (principal); M01.X52 Direct infection of left hip in infectious and parasitic diseases classified elsewhere; I45.10 Unspecified right bundle-branch block; I25.119 Atherosclerotic heart disease of native coronary artery with unspecified angina pectoris; E11.9 Type 2 diabetes mellitus without complications; Z79.1 Long term (current) use of non-steroidal anti-inflammatories (NSAID); Z79.51 Long term (current) use of inhaled steroids; Z79.2 Long term (current) use of antibiotics; Z79.84 Long term (current) use of oral hypoglycemic drugs; Z79.52 Long term (current) use of systemic steroids; Z79.899 Other long term (current) drug therapy
CPT/HCPCS: 73502; 76882; 80053; 82550; 82553; 83605; 84484; 85025; 85652; 86140; 87040; 93005; 96365; 96366; 96374; 96375; 96376; 99285; C9113; J2543; J3370

== ENCOUNTER → 2024-03-25 | Outpatient (CLI) | payer MEDICARE, MEDICAID ==
[2024-03-25 15:40] LABS: BASO # 0.1 10^3/uL (0.0-0.2); BASO % 0.4 % (0.0-1.0); EOS # 0.1 10^3/uL (0.0-0.5); HEMATOCRIT 41.5 % (36.0-47.0); HEMOGLOBIN 11.9 g/dl (12.0-15.5); LYMPH # 1.9 10^3/uL (1.5-5.0); LYMPH % 16.4 % (24.0-44.0); MEAN CORPUSCULAR HEMOGLOBIN 22.8 pg (27.0-33.0); MEAN CORPUSCULAR HGB CONC 28.7 g/dl (32.0-36.5); MEAN CORPUSCULAR VOLUME 79.3 fl (80.0-96.0); MONO # 0.7 10^3/uL (0.0-0.8); MONO % 6.4 % (2.0-8.0); NEUTROPHILS # 8.5 10^3/uL (1.5-8.5); PLATELET COUNT, AUTOMATED 364 10^3/uL (150-450); RED BLOOD COUNT 5.23 10^6/uL (4.00-5.40); WHITE BLOOD COUNT 11.3 10^3/uL (4.0-10.0)
[2024-03-25 16:13] LABS: ALBUMIN 3.8 G/DL (3.2-5.2); ALKALINE PHOSPHATASE 178 U/L (46-116); ALT/SGPT 23 U/L (7.0-40); AST/SGOT 16 U/L (<34); BILIRUBIN,TOTAL 0.4 MG/DL (0.3-1.2); BLOOD UREA NITROGEN 19 MG/DL (9-23); CALCIUM LEVEL 9.8 MG/DL (8.3-10.6); CARBON DIOXIDE LEVEL 28 MMOL/L (20-31); CHLORIDE LEVEL 104 MMOL/L (98-107); CHOLESTEROL LEVEL 185 MG/DL (<200); CHOLESTEROL RISK RATIO 2.91 (<5); CREATININE FOR GFR 0.82 MG/DL (0.55-1.30); GLOMERULAR FILTRATION RATE > 60.0 (>45); GLUCOSE, FASTING 167 MG/DL (74-106); HDL CHOLESTEROL 63.4 MG/DL (>40); LDL CHOLESTEROL 90.8 MG/DL (<100); NON-HDL-C 121.6 MG/DL; POTASSIUM SERUM 4.8 MMOL/L (3.5-5.1); SODIUM LEVEL 138 MMOL/L (136-145); TOTAL PROTEIN 8.1 G/DL (5.7-8.2); TRIGLYCERIDES LEVEL 154 MG/DL (<150)
[2024-03-25 16:16] LABS: THYROID STIMULATING HORMONE 0.963 uIU/ML (0.55-4.78); TOTAL 25(OH) VITAMIN D 72.9 NG/ML (20.0-100.0)
[2024-03-25 16:17] LABS: FREE T4 1.22 NG/DL (0.89-1.76); VITAMIN B12 LEVEL 566 PG/ML (211-911)
[2024-03-25 16:42] LABS: HEMOGLOBIN A1c 6.4 % (4.0-6.0)
== END ==
LOC: M PLALAB 11:34
PROVIDERS: ATTEND Internal Medicine Hematology
DX: I25.810 Atherosclerosis of coronary artery bypass graft(s) without angina pectoris (principal); Z79.899 Other long term (current) drug therapy

== ENCOUNTER 2024-05-09 07:38 | Emergency (ER) | payer MEDICARE, MEDICAID ==
[~2024-05-09] VITALS: Ht 165.1 cm; Wt 54.5 kg
[~2024-05-09 07:38] MED LIST changes: +GABA-1490 PO; -GABA600T4 PO
[2024-05-09] MEDS ORDERED: ISOVUE-370 76% 100ML VIAL As Ordered ONE (08:08)
[2024-05-09 08:20] LABS: BASO % 0.2 % (0.0-1.0); EOS # 0.1 10^3/uL (0.0-0.5); EOS % 0.6 % (0.0-3.0); HEMATOCRIT 35.4 % (36.0-47.0); HEMOGLOBIN 10.5 g/dl (12.0-15.5); LYMPH # 1.4 10^3/uL (1.5-5.0); LYMPH % 16.1 % (24.0-44.0); MEAN CORPUSCULAR HEMOGLOBIN 21.7 pg (27.0-33.0); MEAN CORPUSCULAR HGB CONC 29.7 g/dl (32.0-36.5); MEAN CORPUSCULAR VOLUME 73.1 fl (80.0-96.0); MONO # 0.6 10^3/uL (0.0-0.8); MONO % 6.8 % (2.0-8.0); NEUTROPHILS # 6.4 10^3/uL (1.5-8.5); NEUTROPHILS % 75.4 % (36.0-66.0); PLATELET COUNT, AUTOMATED 408 10^3/uL (150-450); RED BLOOD COUNT 4.84 10^6/uL (4.00-5.40); WHITE BLOOD COUNT 8.5 10^3/uL (4.0-10.0)
[2024-05-09] MEDS ORDERED: ONDANSETRON 4MG 2ML VIAL As Ordered ONE (08:22)
[2024-05-09] MEDS: MORPHINE 2 MG/ML 1ML VIAL IV PRN (08:24)
[2024-05-09] MEDS: ONDANSETRON 4MG 2ML VIAL IV ONE (08:24)
[2024-05-09 08:33] LABS: INR 1.08; PARTIAL THROMBOPLASTIN TIME 32.9 SECONDS (24.8-34.2); PROTHROMBIN TIME 13.7 SECONDS (12.5-14.5)
[2024-05-09 09:06] LABS: ALBUMIN 3.4 G/DL (3.2-5.2); ALKALINE PHOSPHATASE 154 U/L (46-116); ALT/SGPT 22 U/L (7.0-40); AST/SGOT 27 U/L (<34); BILIRUBIN,DIRECT < 0.1 MG/DL (<0.4); BILIRUBIN,TOTAL 0.2 MG/DL (0.3-1.2); BLOOD UREA NITROGEN 18 MG/DL (9-23); CALCIUM LEVEL 9.6 MG/DL (8.3-10.6); CARBON DIOXIDE LEVEL 28 MMOL/L (20-31); CHLORIDE LEVEL 103 MMOL/L (98-107); CK-MB VALUE MASS < 1.0 NG/ML (<3.6); CPK CREATINE PHOSPHOKINASE 42 U/L (34-145); CREATININE FOR GFR 0.48 MG/DL (0.55-1.30); GLOMERULAR FILTRATION RATE > 60.0 (>45); GLUCOSE, FASTING 188 MG/DL (74-106); LIPASE 28 U/L (12-53); MB/CK RELATIVE INDEX 2.38 (< OR =4); POTASSIUM SERUM 4.3 MMOL/L (3.5-5.1); SODIUM LEVEL 138 MMOL/L (136-145); THYROID STIMULATING HORMONE 1.844 uIU/ML (0.55-4.78); TOTAL PROTEIN 7.9 G/DL (5.7-8.2)
[2024-05-09 09:54] LABS: CK-MB VALUE MASS < 1.0 NG/ML (<3.6)
[2024-05-09 10:00] LABS: CPK CREATINE PHOSPHOKINASE 40 U/L (34-145)
[2024-05-09 10:36] LABS: RSV AMPLIFICATION NEGATIVE (NEGATIVE)
[2024-05-09 11:48] LABS: CK-MB VALUE MASS < 1.0 NG/ML (<3.6)
[2024-05-09 11:55] LABS: CPK CREATINE PHOSPHOKINASE 40 U/L (34-145)
[2024-05-09] MEDS: NS 500 ML IV ONE (12:37)
[2024-05-09 12:46] LABS: ERYTHROCYTE SEDIMENTATION RATE > 130 mm/hr (0-30)
[2024-05-09 12:49] LABS: PROCALCITONIN 0.05 ng/ml
[2024-05-09] MEDS: PIPERACILLIN/TAZOBACTAM SOD 4.5 GM in D5W MINI-BAG PLUS 50 ML IV ONE (13:40)
[2024-05-09] MEDS ORDERED: NS 1,000 ML IV ONE (14:05)
[2024-05-09] MEDS: VANCOMYCIN HCL 1,000 MG, VIAL MATE ADAPTER 1 EACH in NS 250 ML IV ONE (14:58)
[2024-05-09 15:07] VITALS: BP 140/80; TEMP 98.8; O2SAT 98
== END 2024-05-09 15:10 | disposition short-term general hospital (02) ==
LOC: M ED 07:38
DX: R07.9 Chest pain, unspecified (principal); M71.052 Abscess of bursa, left hip; I45.10 Unspecified right bundle-branch block; I25.2 Old myocardial infarction; E11.9 Type 2 diabetes mellitus without complications; I10 Essential (primary) hypertension; E78.5 Hyperlipidemia, unspecified; I25.119 Atherosclerotic heart disease of native coronary artery with unspecified angina pectoris; F17.210 Nicotine dependence, cigarettes, uncomplicated; F12.10 Cannabis abuse, uncomplicated; Z79.1 Long term (current) use of non-steroidal anti-inflammatories (NSAID); Z79.51 Long term (current) use of inhaled steroids; Z79.84 Long term (current) use of oral hypoglycemic drugs; Z79.899 Other long term (current) drug therapy
CPT/HCPCS: 36415; 71045; 71275; 74174; 80047; 80048; 80076; 82550; 82553; 83690; 84145; 84439; 84443; 84484; 85025; 85610; 85652; 85730; 86140; 87040; 87631; 93005; 93041; 94760; 96361; 96365; 96374; 96375; 99285; J2405; J2543; J3370; Q9967

== ENCOUNTER → 2024-06-17 | Outpatient (REF) | payer MEDICARE, MEDICAID ==
[~2024-06-17] MED LIST changes: +GABA-1172 PO; -GABA-282 PO
== END ==
LOC: M SFHCPLAZ 15:11
PROVIDERS: ATTEND Nurse Practitioner Adult Health
DX: R05.3 Chronic cough (principal)

== ENCOUNTER 2024-07-25 20:27 | Emergency (ER) | payer MEDICARE, MEDICAID ==
[2024-07-25] MEDS: ANEXSIA, NORCO 7.5MG/325MG TABLET(HYDROCODONE/APAP) PO ONE (21:42)
[2024-07-25 21:57] LABS: BASO % 0.5 % (0.0-1.0); EOS # 0.1 10^3/uL (0.0-0.5); EOS % 1.5 % (0.0-3.0); HEMATOCRIT 29.4 % (36.0-47.0); HEMOGLOBIN 8.8 g/dl (12.0-15.5); LYMPH # 2.1 10^3/uL (1.5-5.0); LYMPH % 26.8 % (24.0-44.0); MEAN CORPUSCULAR HEMOGLOBIN 21.5 pg (27.0-33.0); MEAN CORPUSCULAR HGB CONC 29.9 g/dl (32.0-36.5); MEAN CORPUSCULAR VOLUME 71.9 fl (80.0-96.0); MONO # 0.5 10^3/uL (0.0-0.8); MONO % 6.2 % (2.0-8.0); NEUTROPHILS # 4.8 10^3/uL (1.5-8.5); NEUTROPHILS % 60.5 % (36.0-66.0); PLATELET COUNT, AUTOMATED 489 10^3/uL (150-450); RED BLOOD COUNT 4.09 10^6/uL (4.00-5.40); WHITE BLOOD COUNT 7.9 10^3/uL (4.0-10.0)
[2024-07-25 22:08] LABS: INR 0.92; PARTIAL THROMBOPLASTIN TIME 30.4 SECONDS (24.8-34.2); PROTHROMBIN TIME 12.7 SECONDS (12.5-14.5)
[2024-07-25 22:13] LABS: BLOOD UREA NITROGEN 16 MG/DL (9-23); CALCIUM LEVEL 9.8 MG/DL (8.3-10.6); CARBON DIOXIDE LEVEL 30 MMOL/L (20-31); CHLORIDE LEVEL 103 MMOL/L (98-107); CREATININE FOR GFR 0.51 MG/DL (0.55-1.30); GLOMERULAR FILTRATION RATE > 60.0 (>45); GLUCOSE, FASTING 134 MG/DL (74-106); MAGNESIUM LEVEL 1.5 MG/DL (1.8-2.4); POTASSIUM SERUM 4.2 MMOL/L (3.5-5.1); SODIUM LEVEL 140 MMOL/L (136-145)
[2024-07-25 23:50] VITALS: BP 167/79
[2024-07-25] MEDS: LOSARTAN 50MG TABLET PO ONE (23:50)
[2024-07-25] MEDS: METOCLOPRAMIDE INJ 10MG/2ML VIAL IV ONE (23:50)
[2024-07-25] MEDS: KETOROLAC 30 MG/ML 1ML VIAL IV ONE (23:51)
[2024-07-25] MEDS: ACETAMINOPHEN *IV* 1,000 MG in IV 1 EA IV ONE (23:51)
[2024-07-26] MEDS: MAG SULF 1GM/100ML (MAG RUN) 1 GM in IV 1 EA IV ONE (01:21)
[2024-07-26 02:30] VITALS: BP 169/109; TEMP 97.5; O2SAT 99
== END 2024-07-26 02:57 | disposition home or self-care (01) ==
LOC: EDBD 20:27 → M ED 20:27
DX: E83.42 Hypomagnesemia (principal); I10 Essential (primary) hypertension; R51.9 Headache, unspecified; R00.1 Bradycardia, unspecified; I45.10 Unspecified right bundle-branch block; E11.9 Type 2 diabetes mellitus without complications; J44.9 Chronic obstructive pulmonary disease, unspecified; E78.5 Hyperlipidemia, unspecified; F17.210 Nicotine dependence, cigarettes, uncomplicated; Z79.1 Long term (current) use of non-steroidal anti-inflammatories (NSAID); Z79.51 Long term (current) use of inhaled steroids; Z79.84 Long term (current) use of oral hypoglycemic drugs; Z79.899 Other long term (current) drug therapy
CPT/HCPCS: 70450; 71045; 72125; 80048; 82375; 83735; 85025; 85610; 85730; 87486; 87581; 87633; 87798; 87880; 93005; 96365; 96366; 96375; 99285; J0131; J1100; J1885; J2765; J3475

== ENCOUNTER 2024-11-17 13:36 | Emergency (ER) | payer MEDICARE, MEDICAID ==
[~2024-11-17] VITALS: Ht 165.1 cm; Wt 54.5 kg
[2024-11-17 15:19] LABS: BASO % 0.3 % (0.0-1.0); EOS # 0.1 10^3/uL (0.0-0.5); EOS % 1.4 % (0.0-3.0); HEMATOCRIT 32.3 % (36.0-47.0); HEMOGLOBIN 9.9 g/dl (12.0-15.5); LYMPH # 1.8 10^3/uL (1.5-5.0); LYMPH % 26.4 % (24.0-44.0); MEAN CORPUSCULAR HEMOGLOBIN 22.6 pg (27.0-33.0); MEAN CORPUSCULAR HGB CONC 30.7 g/dl (32.0-36.5); MEAN CORPUSCULAR VOLUME 73.6 fl (80.0-96.0); MONO # 0.6 10^3/uL (0.0-0.8); MONO % 9.6 % (2.0-8.0); NEUTROPHILS # 4.1 10^3/uL (1.5-8.5); NEUTROPHILS % 61.8 % (36.0-66.0); PLATELET COUNT, AUTOMATED 414 10^3/uL (150-450); RED BLOOD COUNT 4.39 10^6/uL (4.00-5.40); WHITE BLOOD COUNT 6.7 10^3/uL (4.0-10.0)
[2024-11-17 15:39] LABS: LIPASE 19 U/L (12-53)
[2024-11-17 15:41] LABS: ALBUMIN 3.2 G/DL (3.2-5.2); ALKALINE PHOSPHATASE 128 U/L (35-104); ALT/SGPT 15 U/L (7.0-40); AST/SGOT 18 U/L (<34); BILIRUBIN,DIRECT < 0.1 MG/DL (<0.4); BILIRUBIN,TOTAL 0.3 MG/DL (0.3-1.2); BLOOD UREA NITROGEN 10 MG/DL (9-23); CALCIUM LEVEL 9.6 MG/DL (8.3-10.6); CARBON DIOXIDE LEVEL 29 MMOL/L (20-31); CHLORIDE LEVEL 100 MMOL/L (98-107); CREATININE FOR GFR 0.51 MG/DL (0.55-1.30); GLOMERULAR FILTRATION RATE > 60.0 (>45); GLUCOSE, FASTING 104 MG/DL (74-106); POTASSIUM SERUM 3.8 MMOL/L (3.5-5.1); SODIUM LEVEL 139 MMOL/L (136-145); TOTAL PROTEIN 7.4 G/DL (5.7-8.2)
[2024-11-17 17:31] LABS: MAGNESIUM LEVEL 1.8 MG/DL (1.8-2.4)
[2024-11-17 19:11] VITALS: BP 154/72; TEMP 97.2; O2SAT 96
== END 2024-11-17 19:13 | disposition home or self-care (01) ==
LOC: M ED 13:36
DX: I25.119 Atherosclerotic heart disease of native coronary artery with unspecified angina pectoris (principal); R11.10 Vomiting, unspecified; R19.7 Diarrhea, unspecified; S60.221A Contusion of right hand, initial encounter; Y92.9 Unspecified place or not applicable; Y93.9 Activity, unspecified; Y99.9 Unspecified external cause status; I25.2 Old myocardial infarction; E11.9 Type 2 diabetes mellitus without complications; K21.9 Gastro-esophageal reflux disease without esophagitis; I10 Essential (primary) hypertension; G40.89 Other seizures; F17.210 Nicotine dependence, cigarettes, uncomplicated; Z87.820 Personal history of traumatic brain injury; Z79.1 Long term (current) use of non-steroidal anti-inflammatories (NSAID); Z79.51 Long term (current) use of inhaled steroids; Z79.84 Long term (current) use of oral hypoglycemic drugs; Z79.899 Other long term (current) drug therapy

== ENCOUNTER → 2024-12-11 | Outpatient (REF) | payer MEDICARE, MEDICAID ==
[2024-12-11 18:17] LABS: HEMATOCRIT 33.6 % (36.0-47.0); HEMOGLOBIN 9.8 g/dl (12.0-15.5); MEAN CORPUSCULAR HEMOGLOBIN 21.7 pg (27.0-33.0); MEAN CORPUSCULAR HGB CONC 29.2 g/dl (32.0-36.5); MEAN CORPUSCULAR VOLUME 74.3 fl (80.0-96.0); PLATELET COUNT, AUTOMATED 457 10^3/uL (150-450); RED BLOOD COUNT 4.52 10^6/uL (4.00-5.40); WHITE BLOOD COUNT 8.5 10^3/uL (4.0-10.0)
[2024-12-11 18:44] LABS: ALBUMIN 3.3 G/DL (3.2-5.2); ALKALINE PHOSPHATASE 149 U/L (35-104); ALT/SGPT 18 U/L (7.0-40); AST/SGOT 17 U/L (<34); BILIRUBIN,TOTAL 0.3 MG/DL (0.3-1.2); BLOOD UREA NITROGEN 11 MG/DL (9-23); CALCIUM LEVEL 9.6 MG/DL (8.3-10.6); CARBON DIOXIDE LEVEL 31 MMOL/L (20-31); CHLORIDE LEVEL 100 MMOL/L (98-107); CHOLESTEROL LEVEL 129 MG/DL (<200); CHOLESTEROL RISK RATIO 2.39 (<5); CREATININE FOR GFR 0.55 MG/DL (0.55-1.30); FERRITIN 59.7 NG/ML (7.3-270.7); GLOMERULAR FILTRATION RATE > 90.0 (>39); GLUCOSE, FASTING 129 MG/DL (74-106); HDL CHOLESTEROL 53.8 MG/DL (>40); LDL CHOLESTEROL 48.4 MG/DL (<100); NON-HDL-C 75.2 MG/DL; POTASSIUM SERUM 4.8 MMOL/L (3.5-5.1); SODIUM LEVEL 138 MMOL/L (136-145); TOTAL PROTEIN 7.3 G/DL (5.7-8.2); TRIGLYCERIDES LEVEL 134 MG/DL (<150)
[2024-12-11 19:04] LABS: HEMOGLOBIN A1c 6.8 % (4.0-6.0)
== END ==
LOC: M LABDRWAD 16:49
PROVIDERS: ATTEND Nurse Practitioner Adult Health
DX: I25.810 Atherosclerosis of coronary artery bypass graft(s) without angina pectoris (principal); D64.9 Anemia, unspecified; E55.9 Vitamin D deficiency, unspecified; E11.69 Type 2 diabetes mellitus with other specified complication

== ENCOUNTER 2025-02-28 00:17 | Observation (INO) | payer MEDICARE, MEDICAID ==
[~2025-02-28] VITALS: Ht 165.1 cm; Wt 56.3 kg
[~2025-02-28 00:17] MED LIST changes: +LIDO1ADH93 TD; -LIDO5DIS41 TD
[2025-02-28] MEDS ORDERED: MORPHINE 2 MG/ML 1 ML VIAL IV PRN (00:50)
[2025-02-28] MEDS: ONDANSETRON 4MG 2ML VIAL IV ONE (01:08)
[2025-02-28] MEDS: MORPHINE 4 MG/ML 1 ML VIAL IV PRN (01:08)
[2025-02-28 01:27] LABS: BASO # 0.0 10^3/uL (0.0-0.2); BASO % 0.3 % (0.0-1.0); EOS # 0.1 10^3/uL (0.0-0.5); EOS % 1.0 % (0.0-3.0); LYMPH # 1.9 10^3/uL (1.5-5.0); LYMPH % 22.5 % (24.0-44.0); MONO # 0.9 10^3/uL (0.0-0.8); MONO % 10.0 % (2.0-8.0); NEUTROPHILS # 5.6 10^3/uL (1.5-8.5); NEUTROPHILS % 65.2 % (36.0-66.0); PLATELET COUNT, AUTOMATED 347 10^3/uL (150-450)
[2025-02-28 01:44] LABS: CALCIUM LEVEL 8.8 MG/DL (8.3-10.6); CARBON DIOXIDE LEVEL 30.0 MMOL/L (20-31); CHLORIDE LEVEL 95.0 MMOL/L (98-107); CREATININE FOR GFR 1.01 MG/DL (0.55-1.30); GLOMERULAR FILTRATION RATE 59.9 (>39); POTASSIUM SERUM 5.1 MMOL/L (3.5-5.1); SODIUM LEVEL 134.0 MMOL/L (136-145)
[2025-02-28 01:46] LABS: INR 0.98
[2025-02-28] MEDS: NS (Normal Saline) 0.9% 1,000 ML IV ONE ×2 (03:03→13:43)
[2025-02-28] MEDS ORDERED: MAALOX 30 ML SUSP *UDC PO PRN (05:50)
[2025-02-28] MEDS ORDERED: MOM 30 ML SUSPENSION UDC PO PRN (05:50)
[2025-02-28] MEDS ORDERED: ACETAMINOPHEN 325 MG TAB PO PRN (05:50)
[2025-02-28] MEDS ORDERED: DEXTROSE 50% 50 ML SYRINGE IV PRN (06:00)
[2025-02-28] MEDS ORDERED: GLUCAGON INJ 1 MG VIAL SC PRN (06:00)
[2025-02-28] MEDS ORDERED: GLUCOSE 4 GM CHEW PO PRN (06:00)
[2025-02-28 07:29] LABS: PLATELET COUNT, AUTOMATED 325 10^3/uL (150-450)
[2025-02-28 07:42] LABS: INR 0.96
[2025-02-28 08:22] LABS: ALT/SGPT 10.0 U/L (7.0-40); AST/SGOT 20.0 U/L (<34); CALCIUM LEVEL 8.7 MG/DL (8.3-10.6); CARBON DIOXIDE LEVEL 28.0 MMOL/L (20-31); CHLORIDE LEVEL 101.0 MMOL/L (98-107); CREATININE FOR GFR 0.85 MG/DL (0.55-1.30); GLOMERULAR FILTRATION RATE 73.7 (>39); POTASSIUM SERUM 4.7 MMOL/L (3.5-5.1); SODIUM LEVEL 142.0 MMOL/L (136-145)
[2025-02-28] MEDS ORDERED: NALOXONE INJ 0.4 MG/1 ML VIAL IV PRN (08:40)
[2025-02-28] MEDS ORDERED: PERCOCET 5MG/325MG TAB PO PRN ×2 (08:40→15:00)
[2025-02-28] MEDS: DOCUSATE SODIUM 100 MG CAPSULE PO SCH (08:45)
[2025-02-28] MEDS: INSULIN LISPRO (NovoLOG) PER UNIT SC SCH (08:46)
[2025-02-28] MEDS: PANTOPRAZOLE 40MG VIAL IV SCH (08:47)
[2025-02-28] MEDS: HEPARIN SOD 5000 UNITS/ML 1 ML VIAL/SYRINGE SC SCH (08:47)
[2025-02-28] MEDS: PERCOCET 5MG/325MG TAB PO ONE (09:27)
[2025-02-28] MEDS: KETOROLAC 30 MG/ML 1 ML VIAL IV ONE (09:27)
[2025-02-28] MEDS ORDERED: ATOR40TA75 PO (09:56)
[2025-02-28] MEDS ORDERED: HYDR-3713 PO (09:56)
[2025-02-28] MEDS ORDERED: PANT40TA29 PO (09:56)
[2025-02-28] MEDS ORDERED: FAMO40TA3 PO (09:56)
[2025-02-28] MEDS ORDERED: HOME MED LIST COMPLETE! XX SCH (10:00)
[2025-02-28] MEDS ORDERED: OXYC1TAB23 PO (11:41)
[2025-02-28 16:34] VITALS: BP 147/64; TEMP 96.2; O2SAT 95
[2025-02-28] MEDS: ALPRAZolam 0.25 MG TAB PO ONE (17:08)
== END 2025-02-28 17:15 | disposition home or self-care (01) ==
LOC: M ED 00:17 → M ED INP 00:18
PROVIDERS: ADMIT Student in an Organized Health Care Education/Training Program; ATTEND Student in an Organized Health Care Education/Training Program
DX: M25.552 Pain in left hip (principal); G89.29 Other chronic pain; M24.452 Recurrent dislocation, left hip; W01.0XXA Fall on same level from slipping, tripping and stumbling without subsequent striking against object, initial encounter; Y92.013 Bedroom of single-family (private) house as the place of occurrence of the external cause; Z99.3 Dependence on wheelchair; I10 Essential (primary) hypertension; E78.5 Hyperlipidemia, unspecified; E11.9 Type 2 diabetes mellitus without complications; I25.10 Atherosclerotic heart disease of native coronary artery without angina pectoris; Z95.1 Presence of aortocoronary bypass graft; F44.9 Dissociative and conversion disorder, unspecified; G47.30 Sleep apnea, unspecified; R32 Unspecified urinary incontinence; F32.A Depression, unspecified; Z86.711 Personal history of pulmonary embolism; Z96.642 Presence of left artificial hip joint; Z89.622 Acquired absence of left hip joint; Z90.49 Acquired absence of other specified parts of digestive tract; Z90.89 Acquired absence of other organs; Z79.899 Other long term (current) drug therapy; Z79.82 Long term (current) use of aspirin; Z79.84 Long term (current) use of oral hypoglycemic drugs
CPT/HCPCS: 36415; 71045; 73502; 80048; 80053; 85025; 85027; 85610; 85730; 96372; 96374; 96375; 97161; 99285; G0378; J1815; J1885; J2405; J2470

== ENCOUNTER 2025-03-19 10:58 | Emergency (ER) | payer MEDICARE, MEDICAID ==
[~2025-03-19] VITALS: Ht 165.1 cm; Wt 53.7 kg
[~2025-03-19 10:58] MED LIST changes: +ATOR40TA75 PO; +FAMO40TA3 PO; +HYDR-3713 PO; +HYDR12.510 PO; -HYDR12CA PO; +PANT40TA29 PO
[2025-03-19 12:44] LABS: PLATELET COUNT, AUTOMATED 473 10^3/uL (150-450)
[2025-03-19 13:01] LABS: CALCIUM LEVEL 9.0 MG/DL (8.3-10.6); CARBON DIOXIDE LEVEL 28 MMOL/L (20-31); CHLORIDE LEVEL 101 MMOL/L (98-107); CREATININE FOR GFR 0.66 MG/DL (0.55-1.30); GLOMERULAR FILTRATION RATE > 90.0 (>39); POTASSIUM SERUM 4.3 MMOL/L (3.5-5.1); SODIUM LEVEL 142 MMOL/L (136-145)
[2025-03-19] MEDS: ACETAMINOPHEN *IV* 1,000 MG in IV 1 EA IV ONE (13:15)
[2025-03-19 14:13] VITALS: O2SAT 99
[2025-03-19 14:19] VITALS: BP 139/96; TEMP 97.5
== END 2025-03-19 14:33 | disposition home or self-care (01) ==
LOC: M ED 10:58 → EDBD 10:58 → M ED 14:33
DX: M25.552 Pain in left hip (principal); I25.119 Atherosclerotic heart disease of native coronary artery with unspecified angina pectoris; E11.9 Type 2 diabetes mellitus without complications; I10 Essential (primary) hypertension; E78.5 Hyperlipidemia, unspecified; J44.9 Chronic obstructive pulmonary disease, unspecified; G47.33 Obstructive sleep apnea (adult) (pediatric); F32.A Depression, unspecified; Z87.891 Personal history of nicotine dependence; Z79.1 Long term (current) use of non-steroidal anti-inflammatories (NSAID); Z79.51 Long term (current) use of inhaled steroids; Z79.84 Long term (current) use of oral hypoglycemic drugs; Z79.899 Other long term (current) drug therapy
CPT/HCPCS: 73502; 80048; 85027; 96374; 97161; 97530; 99284; J0131

== ENCOUNTER 2025-04-16 13:03 | Outpatient (RCR) | payer MEDICARE, MEDICAID ==
[~2025-04-16 13:03] MED LIST changes: -IBUP-1022 PO; +IBUP600T42 PO
== END 2025-04-19 ==
LOC: M PT 13:03
PROVIDERS: ATTEND Nurse Practitioner Family
DX: M25.552 Pain in left hip (principal)

== ENCOUNTER 2025-05-23 16:23 | Inpatient (IN) | payer MEDICAID, MEDICARE ==
[~2025-05-23] VITALS: Ht 165.1 cm; Wt 52.4 kg
[2025-05-23 17:27] LABS: BASO # 0.0 10^3/uL (0.0-0.2); BASO % 0.3 % (0.0-1.0); EOS # 0.1 10^3/uL (0.0-0.5); EOS % 2.3 % (0.0-3.0); LYMPH # 1.6 10^3/uL (1.5-5.0); LYMPH % 26.1 % (24.0-44.0); MONO # 0.6 10^3/uL (0.0-0.8); MONO % 9.7 % (2.0-8.0); NEUTROPHILS # 3.7 10^3/uL (1.5-8.5); NEUTROPHILS % 59.8 % (36.0-66.0); PLATELET COUNT, AUTOMATED 363 10^3/uL (150-450); VENOUS BASE EXCESS 4.7 (-2.0-2.0); VENOUS HCO3 30.1 MMOL/L (23.0-27.0); VENOUS O2 SATURATION 83.3 % (60.0-80.0); VENOUS PARTIAL PRESSURE CO2 49.1 mmHg (38.0-50.0); VENOUS PARTIAL PRESSURE O2 50.1 mmHg (30.0-50.0); VENOUS PH 7.406 UNITS (7.330-7.430); VENOUS STANDARD HCO3 28.5 MMOL/L; VENOUS TOTAL CO2 31.7 MMOL/L (24.0-28.0)
[2025-05-23 17:58] LABS: ALT/SGPT 10 U/L (7.0-40); AST/SGOT 17 U/L (<34); CALCIUM LEVEL 9.1 MG/DL (8.3-10.6); CARBON DIOXIDE LEVEL 29 MMOL/L (20-31); CHLORIDE LEVEL 97 MMOL/L (98-107); CREATININE FOR GFR 0.60 MG/DL (0.55-1.30); GLOMERULAR FILTRATION RATE > 90.0 (>39); POTASSIUM SERUM 4.1 MMOL/L (3.5-5.1); SODIUM LEVEL 134 MMOL/L (136-145)
[2025-05-23 18:04] LABS: OSMOLALITY SERUM 289 MOSM/KG (280-301)
[2025-05-23] MEDS: ONDANSETRON 4MG 2ML VIAL IV ONE (18:10)
[2025-05-23] MEDS: MORPHINE 4 MG/ML 1 ML VIAL IV PRN (18:11)
[2025-05-23] MEDS: TETANUS/DIPHTH/ACEL. PERTUSSIS 0.5 ML SYR IM.IMMUN ONE (18:12)
[2025-05-23 18:30] LABS: ETHYL ALCOHOL (ETHANOL) 0.003 % (0.000-0.010)
[2025-05-23] MEDS: LIDOCAINE 2% 5 ML JELLY UROJET TOP ONE (19:45)
[2025-05-23 20:11] LABS: CPK CREATINE PHOSPHOKINASE 48.0 U/L (34-145)
[2025-05-23 20:15] LABS: APPEARANCE, URINE CLEAR (CLEAR); BACTERIA, URINE AUTO NEGATIVE (NEGATIVE); BILIRUBIN, URINE AUTO NEGATIVE (NEGATIVE); BLOOD, URINE BLOOD NEGATIVE (NEGATIVE); GLUCOSE, URINE (UA) AUTO NEGATIVE (NEGATIVE); KETONE, URINE AUTO NEGATIVE (NEGATIVE); LEUKOCYTE ESTERASE, URINE AUTO 2+ (NEGATIVE); MUCUS, URINE SMALL (NEGATIVE); NITRITE, URINE AUTO NEGATIVE (NEGATIVE); PROTEIN, URINE AUTO NEGATIVE (NEGATIVE); RBC, URINE AUTO 4 /HPF (0-3); SPECIFIC GRAVITY URINE AUTO 1.016 (1.002-1.035); SQUAMOUS EPITHELIAL CELL UR AU 0 /HPF (0-6); UROBILINOGEN, URINE AUTO 0.2 mg/dL (0.0-2.0); WBC, URINE AUTO 6 /HPF (0-3)
[2025-05-23 20:42] LABS: AMPHETAMINES LEVEL URINE NEGATIVE (NEGATIVE); BARBITURATES URINE NEGATIVE (NEGATIVE); BENZODIAZEPINES URINE NEGATIVE (NEGATIVE); CANNABINOIDS URINE NEGATIVE (NEGATIVE); COCAINE METABOLITE URINE NEGATIVE (NEGATIVE); METHADONE URINE NEGATIVE (NEGATIVE); PHENCYCLIDINE URINE NEGATIVE (NEGATIVE)
[2025-05-23] MEDS ORDERED: ISOVUE-370 76% 100 ML VIAL As Ordered ONE (20:44)
[2025-05-23 20:50] LABS: OPIATES URINE POSITIVE (NEGATIVE)
[2025-05-23] MEDS: LATANOPROST 0.005% OPHTH SOLN 2.5 ML OU SCH (21:00)
[2025-05-23 21:57] LABS: C REACTIVE PROTEIN QUANTITATIV 12.64 MG/DL (<1.0)
[2025-05-23] MEDS: ACETAMINOPHEN 500 MG TAB PO SCH (23:24)
[2025-05-23] MEDS ORDERED: traZODone 50 MG TAB PO PRN (23:25)
[2025-05-23] MEDS ORDERED: GLUCOSE 4 GM CHEW PO PRN (23:30)
[2025-05-23] MEDS ORDERED: GLUCAGON INJ 1 MG VIAL SC PRN (23:30)
[2025-05-23] MEDS ORDERED: DEXTROSE 50% 50 ML SYRINGE IV PRN (23:30)
[2025-05-23] MEDS: DICLOFENAC EPOLAMINE 1.3% PATCH TOP SCH (23:34)
[2025-05-24] MEDS: PREGABALIN 75 MG CAP PO SCH (00:11)
[2025-05-24] MEDS: METOPROLOL TART 25 MG TABLET PO SCH (00:11)
[2025-05-24 00:38] VITALS: BP 141/82; TEMP 98.1; O2SAT 97
[2025-05-24] MEDS: IPRATROPIUM 0.5 MG/ALBUTEROL 2.5 MG INH SOL UD 3 ML NEB SCH (01:10)
[2025-05-24 03:58] VITALS: BP 119/77; TEMP 99; O2SAT 97
[2025-05-24] MEDS ORDERED: MORPHINE 4 MG/ML 1 ML VIAL As Ordered ONE (05:06)
[2025-05-24] MEDS: MORPHINE 4 MG/ML 1 ML VIAL IV ONE (05:13)
[2025-05-24 06:31] LABS: PLATELET COUNT, AUTOMATED 378 10^3/uL (150-450)
[2025-05-24 06:56] LABS: C REACTIVE PROTEIN QUANTITATIV 11.21 MG/DL (<1.0)
[2025-05-24 07:35] LABS: CALCIUM LEVEL 9.5 MG/DL (8.3-10.6); CARBON DIOXIDE LEVEL 30 MMOL/L (20-31); CHLORIDE LEVEL 98 MMOL/L (98-107); CREATININE FOR GFR 0.70 MG/DL (0.55-1.30); GLOMERULAR FILTRATION RATE > 90.0 (>39); POTASSIUM SERUM 3.9 MMOL/L (3.5-5.1); SODIUM LEVEL 136 MMOL/L (136-145)
[2025-05-24] MEDS ORDERED: SPIRONOLACTONE 12.5MG PER 1/2 TABLET PO SCH (09:00)
[2025-05-24] MEDS: ENOXAPARIN 40 MG/0.4 ML SYRINGE (J1650 PER 10MG) SC SCH (09:01)
[2025-05-24] MEDS: ASPIRIN 81 MG CHEWABLE TABLET PO SCH (09:01)
[2025-05-24] MEDS: ATORVASTATIN 20 MG TAB PO SCH (09:02)
[2025-05-24 11:26] LABS: RHEUMATOID FACTOR QUANT < 3.5 IU/ML (<14)
[2025-05-24 12:00] VITALS: BP 144/75; TEMP 97; O2SAT 96
[2025-05-24] MEDS ORDERED: ISOS1TAB36 PO (12:01)
[2025-05-24] MEDS ORDERED: RA M10TA PO (12:01)
[2025-05-24] MEDS ORDERED: MIRA3350 PO (12:01)
[2025-05-24] MEDS ORDERED: BUDE10.7 INH (12:01)
[2025-05-24] MEDS ORDERED: HOME MED LIST COMPLETE! XX SCH (12:05)
[2025-05-24] MEDS: LOSARTAN 50 MG TABLET PO SCH (12:59)
[2025-05-24] MEDS: INSULIN LISPRO (NovoLOG) PER UNIT SC SCH ×3 (13:00→21:17)
[2025-05-24] MEDS: PANTOPRAZOLE 40MG TAB PO SCH (13:00)
[2025-05-24] MEDS: SERTRALINE 100 MG TAB PO SCH (13:01)
[2025-05-24] MEDS: TIOTROPIUM BROM 2.5MCG/ACTUATION 4GM INH INH SCH (13:14)
[2025-05-24 20:06] VITALS: BP 106/70; TEMP 98.1; O2SAT 98
[2025-05-25 03:58] VITALS: BP 152/76; TEMP 98.1; O2SAT 100
[2025-05-25 06:55] LABS: PLATELET COUNT, AUTOMATED 422 10^3/uL (150-450)
[2025-05-25 07:25] LABS: C REACTIVE PROTEIN QUANTITATIV 7.31 MG/DL (<1.0)
[2025-05-25 07:27] LABS: CALCIUM LEVEL 9.1 MG/DL (8.3-10.6); CARBON DIOXIDE LEVEL 30 MMOL/L (20-31); CHLORIDE LEVEL 99 MMOL/L (98-107); CREATININE FOR GFR 0.65 MG/DL (0.55-1.30); GLOMERULAR FILTRATION RATE > 90.0 (>39); POTASSIUM SERUM 4.8 MMOL/L (3.5-5.1); SODIUM LEVEL 137 MMOL/L (136-145)
[2025-05-25] MEDS: predniSONE 20 MG TAB PO SCH (10:12)
[2025-05-25 12:00] VITALS: BP 158/77; TEMP 98.4; O2SAT 100
[2025-05-25 12:58] LABS: IRON (FE) 13.0 UG/DL (50-170); PERCENT SATURATION 4.7 % (13.2-45.0)
[2025-05-25 13:00] LABS: VITAMIN B12 LEVEL 538.0 PG/ML (211-911)
[2025-05-25] MEDS ORDERED: VANCOMYCIN HCL 1,000 MG, VIAL MATE ADAPTER 1 EACH in NS 250 ML IV SCH (13:00)
[2025-05-25] MEDS: PIPERACILLIN/TAZOBACTAM SOD 3.375 GM in DEXTROSE 5% (D5W) ADV/MINI-BAG 50 ML IV SCH (14:07)
[2025-05-25] MEDS: VANCOMYCIN HCL 1,000 MG, VIAL MATE ADAPTER 1 EACH in NS 250 ML IV ONE (15:26)
[2025-05-25] MEDS: LORazepam 1 MG TAB PO PRN (18:44)
[2025-05-25] MEDS: LORazepam 0.5 MG TAB PO ONE (19:20)
[2025-05-25 20:09] VITALS: BP 142/76; TEMP 98.2; O2SAT 100
[2025-05-25] MEDS: VANCOMYCIN HCL 750 MG, VIAL MATE ADAPTER 1 EACH in NS 250 ML IV SCH (21:57)
[2025-05-26 04:00] VITALS: BP 140/72; TEMP 98.1; O2SAT 100
[2025-05-26 08:54] LABS: PLATELET COUNT, AUTOMATED 397 10^3/uL (150-450)
[2025-05-26 09:28] LABS: C REACTIVE PROTEIN QUANTITATIV 3.57 MG/DL (<1.0); CALCIUM LEVEL 9.5 MG/DL (8.3-10.6); CARBON DIOXIDE LEVEL 28.0 MMOL/L (20-31); CHLORIDE LEVEL 102.0 MMOL/L (98-107); CREATININE FOR GFR 0.77 MG/DL (0.55-1.30); GLOMERULAR FILTRATION RATE 82.9 (>39); POTASSIUM SERUM 4.4 MMOL/L (3.5-5.1); SODIUM LEVEL 140.0 MMOL/L (136-145)
[2025-05-26] MEDS: VANCOMYCIN HCL 1,250 MG, VIAL MATE ADAPTER 1 EACH in NS 250 ML IV SCH (10:15)
[2025-05-26] MEDS: OLANZapine INTRAMUSCULAR 10MG VIAL IM ONE (17:57)
[2025-05-26 20:00] VITALS: BP 149/95; TEMP 98.6; O2SAT 99
[2025-05-27 05:40] VITALS: BP 131/59; TEMP 97.3; O2SAT 96
[2025-05-27 06:20] LABS: PLATELET COUNT, AUTOMATED 398 10^3/uL (150-450)
[2025-05-27 06:44] LABS: C REACTIVE PROTEIN QUANTITATIV 3.5 MG/DL (<1.0); CALCIUM LEVEL 9.0 MG/DL (8.3-10.6); CARBON DIOXIDE LEVEL 31.0 MMOL/L (20-31); CHLORIDE LEVEL 103.0 MMOL/L (98-107); CREATININE FOR GFR 0.72 MG/DL (0.55-1.30); GLOMERULAR FILTRATION RATE 89.9 (>39); POTASSIUM SERUM 4.5 MMOL/L (3.5-5.1); SODIUM LEVEL 143.0 MMOL/L (136-145)
[2025-05-27 07:51] LABS: PROTEIN, TOTAL SO 6.7 g/dL (6.1-8.1)
[2025-05-27 12:00] VITALS: BP 145/83; TEMP 98.1; O2SAT 96
[2025-05-27] MEDS: BACLOFEN 10 MG TAB PO SCH (17:14)
[2025-05-27] MEDS: SODIUM CHLORIDE 0.9% INJ 10 ML SYR IV SCH (17:18)
[2025-05-27] MEDS ORDERED: PROHANCE 279.3MG/ML 5ML VIAL As Ordered ONE (18:00)
[2025-05-27] MEDS ORDERED: ONDANSETRON 4MG 2ML VIAL As Ordered ONE (20:31)
[2025-05-27 21:58] VITALS: BP 135/72; TEMP 97.9; O2SAT 92
[2025-05-27 23:47] VITALS: BP 152/69; TEMP 97.7; O2SAT 96
[2025-05-28 01:26] VITALS: BP 147/87; TEMP 97.7; O2SAT 97
[2025-05-28 03:50] VITALS: BP 132/59; TEMP 97.5; O2SAT 97
[2025-05-28 06:49] LABS: PLATELET COUNT, AUTOMATED 386 10^3/uL (150-450)
[2025-05-28 07:13] LABS: C REACTIVE PROTEIN QUANTITATIV 3.89 MG/DL (<1.0); CALCIUM LEVEL 8.4 MG/DL (8.3-10.6); CARBON DIOXIDE LEVEL 28.0 MMOL/L (20-31); CHLORIDE LEVEL 105.0 MMOL/L (98-107); CREATININE FOR GFR 0.75 MG/DL (0.55-1.30); GLOMERULAR FILTRATION RATE 85.6 (>39); POTASSIUM SERUM 4.2 MMOL/L (3.5-5.1); SODIUM LEVEL 144.0 MMOL/L (136-145)
[2025-05-28 09:51] VITALS: BP 188/86; TEMP 97.3; O2SAT 98
[2025-05-28 10:15] LABS: MAGNESIUM LEVEL 1.8 MG/DL (1.8-2.4)
[2025-05-28 10:32] LABS: ALBUMIN SO 3.0 g/dL (3.8-4.8); ALPHA 1 GLOBULINS SO 0.5 g/dL (0.2-0.3); ALPHA 2 GLOBULINS SO 1.0 g/dL (0.5-0.9); BETA 2 GLOBULIN SO 0.6 g/dL (0.2-0.5); BETA GLOBULIN SO 0.5 g/dL (0.4-0.6); GAMMA GLOBULINS SO 1.0 g/dL (0.8-1.7)
[2025-05-28 11:48] VITALS: BP 169/87; TEMP 97.5; O2SAT 97
[2025-05-28] MEDS ORDERED: OLANZapine 5 MG TAB PO ONE (13:30)
[2025-05-28] MEDS: OLANZapine 5 MG TAB PO ONE (14:41)
[2025-05-28] MEDS: ALBUTEROL SULFATE 2.5 MG/0.5 ML INH CONCENTRATE NEB SOLN NEB PRN (17:54)
[2025-05-28] MEDS: cefTRIAXone SOD 2 GM in DEXTROSE 5% (D5W) ADV/MINI-BAG 50 ML IV SCH (18:41)
[2025-05-28 20:43] VITALS: TEMP 98.4; O2SAT 96
[2025-05-29] MEDS: MAG SULF 1GM/100ML (MAG RUN) 1 GM in IV 1 EA IV ONE (01:10)
[2025-05-29 01:14] VITALS: BP 165/88; TEMP 98.8; O2SAT 94
[2025-05-29 03:29] VITALS: BP 162/86; TEMP 98.1; O2SAT 99
[2025-05-29 06:23] LABS: PLATELET COUNT, AUTOMATED 375 10^3/uL (150-450)
[2025-05-29 06:52] LABS: C REACTIVE PROTEIN QUANTITATIV 3.05 MG/DL (<1.0); CALCIUM LEVEL 8.9 MG/DL (8.3-10.6); CARBON DIOXIDE LEVEL 26 MMOL/L (20-31); CHLORIDE LEVEL 107 MMOL/L (98-107); CREATININE FOR GFR 0.68 MG/DL (0.55-1.30); GLOMERULAR FILTRATION RATE > 90.0 (>39); POTASSIUM SERUM 3.9 MMOL/L (3.5-5.1); SODIUM LEVEL 146 MMOL/L (136-145)
[2025-05-29] MEDS: ACETAMINOPHEN *IV* 1,000 MG in IV 1 EA IV ONE (11:55)
[2025-05-29 12:39] VITALS: BP 146/77; TEMP 98.4; O2SAT 95
[2025-05-29] MEDS: D5W/0.9% SODIUM CHLORIDE 1,000 ML IV SCH (15:22)
[2025-05-29 19:36] VITALS: BP 172/96; TEMP 98.2; O2SAT 98
[2025-05-29 22:17] VITALS: BP 129/69
[2025-05-30 04:15] VITALS: BP 162/72; TEMP 97.9; O2SAT 98
[2025-05-30 06:35] LABS: PLATELET COUNT, AUTOMATED 351 10^3/uL (150-450)
[2025-05-30 07:02] LABS: C REACTIVE PROTEIN QUANTITATIV 3.30 MG/DL (<1.0); CALCIUM LEVEL 8.6 MG/DL (8.3-10.6); CARBON DIOXIDE LEVEL 26 MMOL/L (20-31); CHLORIDE LEVEL 110 MMOL/L (98-107); CREATININE FOR GFR 0.61 MG/DL (0.55-1.30); GLOMERULAR FILTRATION RATE > 90.0 (>39); POTASSIUM SERUM 3.8 MMOL/L (3.5-5.1); SODIUM LEVEL 147 MMOL/L (136-145)
[2025-05-30 12:00] VITALS: BP 183/87; TEMP 98.1; O2SAT 96
[2025-05-30] MEDS: KETOROLAC 30 MG/ML 1 ML VIAL IV PRN (15:45)
[2025-05-30 19:29] VITALS: BP 198/82; TEMP 97.9; O2SAT 100
[2025-05-31 03:49] VITALS: BP 156/73; TEMP 98.1; O2SAT 97
[2025-05-31 08:17] LABS: BASO # 0.0 10^3/uL (0.0-0.2); BASO % 0.3 % (0.0-1.0); EOS # 0.2 10^3/uL (0.0-0.5); EOS % 3.2 % (0.0-3.0); LYMPH # 1.9 10^3/uL (1.5-5.0); LYMPH % 29.2 % (24.0-44.0); MONO # 0.7 10^3/uL (0.0-0.8); MONO % 10.6 % (2.0-8.0); NEUTROPHILS # 3.5 10^3/uL (1.5-8.5); NEUTROPHILS % 55.4 % (36.0-66.0); PLATELET COUNT, AUTOMATED 334 10^3/uL (150-450)
[2025-05-31 08:44] LABS: CALCIUM LEVEL 8.9 MG/DL (8.3-10.6); CARBON DIOXIDE LEVEL 27.0 MMOL/L (20-31); CHLORIDE LEVEL 108.0 MMOL/L (98-107); CREATININE FOR GFR 0.72 MG/DL (0.55-1.30); GLOMERULAR FILTRATION RATE 89.9 (>39); POTASSIUM SERUM 4.0 MMOL/L (3.5-5.1); SODIUM LEVEL 145.0 MMOL/L (136-145)
[2025-05-31 11:18] VITALS: BP 178/82
[2025-05-31] MEDS: amLODIPine 5 MG TAB PO ONE ×2 (11:45→19:07)
[2025-05-31] MEDS: guaiFENesin ER TABLET 600 MG TAB PO SCH (11:45)
[2025-05-31 11:46] VITALS: TEMP 98.1; O2SAT 99
[2025-05-31 18:07] VITALS: BP 202/100
[2025-05-31 20:06] VITALS: BP 172/92; TEMP 97.9; O2SAT 97
[2025-06-01 03:52] VITALS: BP 162/84; TEMP 97.2; O2SAT 97
[2025-06-01 09:12] LABS: BASO # 0.0 10^3/uL (0.0-0.2); BASO % 0.3 % (0.0-1.0); EOS # 0.2 10^3/uL (0.0-0.5); EOS % 3.1 % (0.0-3.0); LYMPH # 1.5 10^3/uL (1.5-5.0); LYMPH % 22.0 % (24.0-44.0); MONO # 0.5 10^3/uL (0.0-0.8); MONO % 8.0 % (2.0-8.0); NEUTROPHILS # 4.4 10^3/uL (1.5-8.5); NEUTROPHILS % 65.6 % (36.0-66.0); PLATELET COUNT, AUTOMATED 337 10^3/uL (150-450)
[2025-06-01 09:33] LABS: CALCIUM LEVEL 9.1 MG/DL (8.3-10.6); CARBON DIOXIDE LEVEL 27 MMOL/L (20-31); CHLORIDE LEVEL 107 MMOL/L (98-107); CREATININE FOR GFR 0.68 MG/DL (0.55-1.30); GLOMERULAR FILTRATION RATE > 90.0 (>39); POTASSIUM SERUM 3.9 MMOL/L (3.5-5.1); SODIUM LEVEL 146 MMOL/L (136-145)
[2025-06-01 12:00] VITALS: BP 161/82; TEMP 97.9; O2SAT 98
[2025-06-01 16:48] LABS: C REACTIVE PROTEIN QUANTITATIV 1.68 MG/DL (<1.0)
[2025-06-01 19:35] VITALS: BP 139/83; TEMP 97.9; O2SAT 97
[2025-06-02 04:19] VITALS: BP 153/70; TEMP 98.2; O2SAT 98
[2025-06-02 06:44] LABS: PLATELET COUNT, AUTOMATED 356 10^3/uL (150-450)
[2025-06-02 06:48] LABS: ERYTHROCYTE SEDIMENTATION RATE 121 mm/hr (0-30)
[2025-06-02 07:07] LABS: C REACTIVE PROTEIN QUANTITATIV 2.72 MG/DL (<1.0); CALCIUM LEVEL 9.7 MG/DL (8.3-10.6); CARBON DIOXIDE LEVEL 29 MMOL/L (20-31); CHLORIDE LEVEL 108 MMOL/L (98-107); CREATININE FOR GFR 0.66 MG/DL (0.55-1.30); GLOMERULAR FILTRATION RATE > 90.0 (>39); MAGNESIUM LEVEL 1.9 MG/DL (1.8-2.4); POTASSIUM SERUM 4.2 MMOL/L (3.5-5.1); SODIUM LEVEL 147 MMOL/L (136-145)
[2025-06-02 12:00] VITALS: BP 129/73; TEMP 97.9; O2SAT 100
[2025-06-02 14:02] VITALS: BP 160/93; TEMP 97.9; O2SAT 97
[2025-06-02 19:43] VITALS: BP 161/84; TEMP 98.4; O2SAT 96
[2025-06-02] MEDS: LIDOCAINE 5% PATCH TD SCH (21:12)
[2025-06-02] MEDS: GABAPENTIN 100 MG CAP PO PRN (22:33)
[2025-06-02] MEDS: SODIUM CHLORIDE 0.9% INJ 10 ML SYR IV PRN (22:34)
[2025-06-03 04:13] VITALS: BP 163/95; TEMP 98; O2SAT 92
[2025-06-03 07:46] LABS: PLATELET COUNT, AUTOMATED 282 10^3/uL (150-450)
[2025-06-03 08:17] LABS: C REACTIVE PROTEIN QUANTITATIV 2.06 MG/DL (<1.0); CALCIUM LEVEL 9.2 MG/DL (8.3-10.6); CARBON DIOXIDE LEVEL 24.0 MMOL/L (20-31); CHLORIDE LEVEL 109.0 MMOL/L (98-107); CREATININE FOR GFR 0.81 MG/DL (0.55-1.30); GLOMERULAR FILTRATION RATE 78.0 (>39); MAGNESIUM LEVEL 1.8 MG/DL (1.8-2.4); POTASSIUM SERUM 4.7 MMOL/L (3.5-5.1); SODIUM LEVEL 146.0 MMOL/L (136-145)
[2025-06-03 08:58] VITALS: BP 125/78
[2025-06-03] MEDS: FLUZONE HIGH DOSE (65+) 0.5 ML SYRINGE (25-26) IM.IMMUN ONE (11:35)
[2025-06-03 12:00] VITALS: BP 150/90; TEMP 98.1; O2SAT 97
== END 2025-06-03 16:32 | disposition home or self-care (01) | DRG 555 ==
LOC: EDBD 16:23 → M ED 16:23 → M ED INP 16:24 → EEVIPCON 23:29 → OBSVTOIN 23:29 → M MSPAV 05-24 00:26
PROVIDERS: ADMIT Student in an Organized Health Care Education/Training Program; ATTEND Student in an Organized Health Care Education/Training Program
PROC: B246ZZZ Ultrasonography of Right and Left Heart (ICD-10-PCS; principal; 2025-05-25)
DX: M25.552 Pain in left hip (principal); G93.41 Metabolic encephalopathy; E87.0 Hyperosmolality and hypernatremia; I25.10 Atherosclerotic heart disease of native coronary artery without angina pectoris; J44.9 Chronic obstructive pulmonary disease, unspecified; E11.9 Type 2 diabetes mellitus without complications; M47.812 Spondylosis without myelopathy or radiculopathy, cervical region; I10 Essential (primary) hypertension; G47.33 Obstructive sleep apnea (adult) (pediatric); K21.9 Gastro-esophageal reflux disease without esophagitis; G25.81 Restless legs syndrome; R19.7 Diarrhea, unspecified; R15.9 Full incontinence of feces; B34.8 Other viral infections of unspecified site; S22.080D Wedge compression fracture of T11-T12 vertebra, subsequent encounter for fracture with routine healing; R51.9 Headache, unspecified; R13.10 Dysphagia, unspecified; D50.9 Iron deficiency anemia, unspecified; H40.9 Unspecified glaucoma; E78.5 Hyperlipidemia, unspecified; R62.7 Adult failure to thrive; G89.29 Other chronic pain; F39 Unspecified mood [affective] disorder; M31.6 Other giant cell arteritis; Z79.82 Long term (current) use of aspirin; Z79.84 Long term (current) use of oral hypoglycemic drugs; Z79.899 Other long term (current) drug therapy; Z95.1 Presence of aortocoronary bypass graft; Z96.642 Presence of left artificial hip joint; Z90.49 Acquired absence of other specified parts of digestive tract; Z87.891 Personal history of nicotine dependence

== ENCOUNTER 2025-06-12 22:51 | Emergency (ER) | payer MEDICAID, MEDICARE ==
[~2025-06-12] VITALS: Ht 165.1 cm; Wt 54.6 kg
[~2025-06-12 22:51] MED LIST changes: +BUDE10.7 INH; +ISOS1TAB36 PO; +MIRA3350 PO; +RA M10TA PO
[2025-06-12 23:28] VITALS: TEMP 96.9
[2025-06-13 00:06] LABS: CK-MB VALUE MASS 2.1 NG/ML (<3.6)
[2025-06-13 00:07] LABS: CPK CREATINE PHOSPHOKINASE 55 U/L (34-145); MB/CK RELATIVE INDEX 3.81 (< OR =4)
[2025-06-13 00:08] LABS: ALT/SGPT 22 U/L (7.0-40); AST/SGOT 25 U/L (<34); CALCIUM LEVEL 9.5 MG/DL (8.3-10.6); CARBON DIOXIDE LEVEL 27 MMOL/L (20-31); CHLORIDE LEVEL 99 MMOL/L (98-107); CREATININE FOR GFR 0.59 MG/DL (0.55-1.30); GLOMERULAR FILTRATION RATE > 90.0 (>39); POTASSIUM SERUM 4.2 MMOL/L (3.5-5.1); SODIUM LEVEL 138 MMOL/L (136-145)
[2025-06-13 00:22] LABS: BASO # 0.0 10^3/uL (0.0-0.2); BASO % 0.3 % (0.0-1.0); EOS # 0.2 10^3/uL (0.0-0.5); EOS % 3.4 % (0.0-3.0); LYMPH # 2.2 10^3/uL (1.5-5.0); LYMPH % 31.2 % (24.0-44.0); MONO # 0.5 10^3/uL (0.0-0.8); MONO % 7.3 % (2.0-8.0); NEUTROPHILS # 4.0 10^3/uL (1.5-8.5); NEUTROPHILS % 57.4 % (36.0-66.0); PLATELET COUNT, AUTOMATED 406 10^3/uL (150-450)
[2025-06-13 01:49] LABS: CK-MB VALUE MASS 1.3 NG/ML (<3.6)
[2025-06-13 01:50] LABS: CPK CREATINE PHOSPHOKINASE 51 U/L (34-145); MB/CK RELATIVE INDEX 2.54 (< OR =4)
[2025-06-13] MEDS: ONDANSETRON 4MG/2ML VIAL IV ONE (04:25)
[2025-06-13 07:43] LABS: C REACTIVE PROTEIN QUANTITATIV 0.52 MG/DL (<1.0)
[2025-06-13] MEDS ORDERED: ISOVUE-370 76% 100 ML VIAL As Ordered ONE (09:11)
[2025-06-13 11:15] VITALS: BP 169/98; O2SAT 98
== END 2025-06-13 11:49 | disposition home or self-care (01) ==
LOC: M ED 22:51
DX: R07.9 Chest pain, unspecified (principal); M54.50 Low back pain, unspecified; K20.90 Esophagitis, unspecified without bleeding; I45.10 Unspecified right bundle-branch block; I25.2 Old myocardial infarction; I10 Essential (primary) hypertension; G47.33 Obstructive sleep apnea (adult) (pediatric); J45.909 Unspecified asthma, uncomplicated; I25.119 Atherosclerotic heart disease of native coronary artery with unspecified angina pectoris; E11.9 Type 2 diabetes mellitus without complications; J44.9 Chronic obstructive pulmonary disease, unspecified; Z79.1 Long term (current) use of non-steroidal anti-inflammatories (NSAID); Z79.51 Long term (current) use of inhaled steroids; Z79.84 Long term (current) use of oral hypoglycemic drugs; Z79.899 Other long term (current) drug therapy
CPT/HCPCS: 71045; 71275; 80048; 80076; 82550; 82553; 83690; 84145; 84484; 85025; 85652; 86140; 87486; 87581; 87633; 87798; 93005; 93041; 94760; 96374; 99285; J2405; Q9967